=== PATIENT | female | born 1950 | race African-American/Black ===

== ENCOUNTER 2017-04-17 12:55 | Inpatient (IN) | payer MEDICARE, BC ==
[~2017-04-17] VITALS: Ht 170.2 cm; Wt 56.8 kg
[~2017-04-17 12:55] MED LIST: AMLO10TA2 PO; CINA30TA2 PO; HYDR453.3 TP; METO25TA4 PO; VIT1TABL57 PO
--- NOTE | 2017-04-17 13:13 | PHYS DOC ---
Past Medical History Past Medical History: Hypertension, Renal Disease, Other Additional Past Medical Histor: HEMODIALYSIS Past Surgical History: Other Additional Past Surgical Histo: HD CATHETER Alcohol Use: None Drug Use: None Adult General Chief Complaint Chief Complaint: fever HPI HPI Patient is a 67 year old female who presents with fever. He states that she hasn't felt good for the last 3 days his had some nausea and vomiting without any diarrhea. She went on about 2-3 times every day. She has a diarrhea because she hasn't been eating anything. She said to dialysis and she states she was afebrile at the beginning she ran 2 hours today and at the end of it they noticed a fever 102.1. Upon presentation the ER she is afebrile. She denies it they gave her Tylenol. She states her whole body aches from head to toe. She dialyzes Thursday. Her spool sander is Dr. Ramirez and Dr. Dominguez is her primary care physician. Review of Systems Review of Systems Constitutional: Denies fever or chills Eyes: Denies change in visual acuity, redness, or eye pain HENT: Denies nasal congestion or sore throat Respiratory: Denies cough or shortness of breath Cardiovascular: No additional information not addressed in HPI GI: Denies abdominal pain, bloody stools or diarrhea, positive for nausea, vomiting, : Denies dysuria or hematuria Musculoskeletal: Denies back pain or joint pain Integument: Denies rash or skin lesions Neurologic: Denies headache, focal weakness or sensory changes Endocrine: Denies polyuria or polydipsia Current Medications Current Medications Current Medications Medications (Trade) Dose Ordered Sig/Noris Start Time Stop Time Status Last Admin Dose Admin Fentanyl Citrate (Fentanyl 2ml Vial) 25 mcg PRN Q15MIN PRN 04/17/17 15:45 04/18/17 15:44 Vancomycin HCl (Vanco Per Pharmacy) 1 each PRN DAILY PRN 04/17/17 14:45 UNV Vancomycin HCl 1.5 gm/Sodium Chloride 500 ml @ 250 mls/hr 1X ONCE 04/17/17 15:00 04/17/17 16:59 04/17/17 15:18 250 MLS/HR Allergies Allergies Allergies Coded Allergies Type Severity Reaction Last Updated Verified diphenhydramine Adverse Reaction Mild Anxiety 01/17/16 Yes Physical Exam Physical Exam Constitutional: Well developed, well nourished, no acute distress, non-toxic appearance. [] HENT: Normocephalic, atraumatic, bilateral external ears normal, oropharynx moist, no oral exudates, nose normal. [] Eyes: PERRLA, EOMI, conjunctiva normal, no discharge. [] Neck: Normal range of motion, no tenderness, supple, no stridor. [] Cardiovascular:Heart rate regular rhythm, no murmur [] Lungs & Thorax: Bilateral breath sounds clear to auscultation [] Abdomen: Bowel sounds normal, soft, no tenderness, no masses, no pulsatile masses. [] Skin: Warm, dry, no erythema, no rash. [] Back: No tenderness, no CVA tenderness. [] Extremities: No tenderness, no cyanosis, no clubbing, ROM intact, no edema. [] Neurologic: Alert and oriented X 3, normal motor function, normal sensory function, no focal deficits noted. [] Psychologic: Affect normal, judgement normal, mood normal. [] Current Patient Data Vital Signs Vital Signs Date Time Temp Pulse Resp B/P (MAP) Pulse Ox O2 Delivery O2 Flow Rate FiO2 04/17/17 12:55 98.7 102 19 183/81 (115) 98 Room Air 98.7 Lab Values Laboratory Tests Test 04/17/17 13:44 White Blood Count 11.3 x10^3/uL (4.0-11.0) H Red Blood Count 4.13 x10^6/uL (3.50-5.40) Hemoglobin 12.2 g/dL (12.0-15.5) Hematocrit 37.4 % (36.0-47.0) Mean Corpuscular Volume 91 fL (79-100) Mean Corpuscular Hemoglobin 30 pg (25-35) Mean Corpuscular Hemoglobin Concent 33 g/dL (31-37) Red Cell Distribution Width 14.2 % (11.5-14.5) Platelet Count 147 x10^3/uL (140-400) Neutrophils (%) (Auto) 87 % (31-73) H Lymphocytes (%) (Auto) 5 % (24-48) L Monocytes (%) (Auto) 7 % (0-9) Eosinophils (%) (Auto) 0 % (0-3) Basophils (%) (Auto) 1 % (0-3) Neutrophils # (Auto) 9.9 x10^3uL (1.8-7.7) H Lymphocytes # (Auto) 0.5 x10^3/uL (1.0-4.8) L Monocytes # (Auto) 0.8 x10^3/uL (0.0-1.1) Eosinophils # (Auto) 0.0 x10^3/uL (0.0-0.7) Basophils # (Auto) 0.1 x10^3/uL (0.0-0.2) Platelet Estimate Pending Sodium Level 140 mmol/L (136-145) Potassium Level 3.9 mmol/L (3.5-5.1) Chloride Level 101 mmol/L (98-107) Carbon Dioxide Level 25 mmol/L (21-32) Anion Gap 14 (6-14) Blood Urea Nitrogen 24 mg/dL (7-20) H Creatinine 6.2 mg/dL (0.6-1.0) H Estimated GFR (Cockcroft-Gault) 8.1 BUN/Creatinine Ratio 4 (6-20) L Glucose Level 190 mg/dL (70-99) H Lactic Acid Level 1.8 mmol/L (0.4-2.0) Calcium Level 8.9 mg/dL (8.5-10.1) Total Bilirubin 0.7 mg/dL (0.2-1.0) Aspartate Amino Transferase (AST) 15 U/L (15-37) Alanine Aminotransferase (ALT) 12 U/L (14-59) L Alkaline Phosphatase 94 U/L (46-116) Total Protein 7.1 g/dL (6.4-8.2) Albumin 3.3 g/dL (3.4-5.0) L Albumin/Globulin Ratio 0.9 (1.0-1.7) L Laboratory Tests 04/17/17 13:44 Laboratory Tests 04/17/17 13:44 EKG EKG [] Radiology/Procedures Radiology/Procedures [facility] [address] [place], [place] [id number] IMAGING REPORT Signed PATIENT: JUD GARNER ACCOUNT: [id number] : 1950 LOCATION: ER AGE: 67 SEX: F EXAM STATUS: PRE ER ORD. PHYSICIAN: HAILEE SAUCEDO MD REASON: fever PROCEDURE: PORTABLE CHEST 1V EXAM: Chest one view. HISTORY: Fever, nausea. COMPARISON: 07/25/2007. FINDINGS: A frontal view of the chest is obtained. A density in the right para mediastinal territory likely overlies the patient. There are interstitial opacities in both bases. There is no pneumothorax or pleural effusion. The heart is mildly enlarged. There are atherosclerotic calcifications of the aorta. Surgical clips are seen at the base of the neck. IMPRESSION: 1. Mild interstitial opacities in the bases. Correlate for mild pulmonary edema. 2. Mild cardiomegaly. DICTATED and SIGNED BY: BELTRAN TALAVERA MD DATE: 04/17/17 1351 CC: JUDITH DOMINGUEZ; HAILEE SAUCEDO MD ~ Impressions: Fever End-stage renal disease Course & Med Decision Making Course & Med Decision Making Pertinent Labs and Imaging studies reviewed. (See chart for details) Her lactic acid is normal and she doesn't have fever here. She started on vancomycin. Influenza is still pending at this time. Spoke with during the plan who is agreeable and will admit the patient. She is requiring fentanyl for generalized bodyaches. Dragon Disclaimer Dragon Disclaimer This electronic medical record was generated, in whole or in part, using a voice recognition dictation system. Departure Departure Impression: Primary Impression: Fever Disposition: ADMITTED INPATIENT Admitting Physician: Lencho Block Condition: STABLE Referrals: JUDITH DOMINGUEZ (PCP) Problem Qualifiers Primary Impression: Fever Fever type: unspecified Qualified Codes: R50.9 - Fever, unspecified HAILEE SAUCEDO MD Apr 17, 2017 13:13
--- NOTE | 2017-04-17 13:57 | RAD ---
EXAM: Chest one view. HISTORY: Fever, nausea. COMPARISON: 07/25/2007. FINDINGS: A frontal view of the chest is obtained. A density in the right para mediastinal territory likely overlies the patient. There are interstitial opacities in both bases. There is no pneumothorax or pleural effusion. The heart is mildly enlarged. There are atherosclerotic calcifications of the aorta. Surgical clips are seen at the base of the neck. IMPRESSION: 1. Mild interstitial opacities in the bases. Correlate for mild pulmonary edema. 2. Mild cardiomegaly.
[2017-04-17 13:58] LABS: BASO # 0.1 x10^3/uL (0.0-0.2); BASO % 1 % (0-3); EOS % 0 % (0-3); HEMATOCRIT 37.4 % (36.0-47.0); HEMOGLOBIN 12.2 g/dL (12.0-15.5); LYMPH # 0.5 x10^3/uL (1.0-4.8); LYMPH % 5 % (24-48); MEAN CORPUSCULAR HEMOGLOBIN 30 pg (25-35); MEAN CORPUSCULAR HGB CONC 33 g/dL (31-37); MEAN CORPUSCULAR VOLUME 91 fL (79-100); MONO % 7 % (0-9); NEUT % 87 % (31-73); PLATELET COUNT 147 x10^3/uL (140-400); RED BLOOD COUNT 4.13 x10^6/uL (3.50-5.40); RED CELL DISTRIBUTION WIDTH 14.2 % (11.5-14.5); WHITE BLOOD COUNT 11.3 x10^3/uL (4.0-11.0)
[2017-04-17 14:14] LABS: CALCIUM 8.9 mg/dL (8.5-10.1); CREATININE 6.2 mg/dL (0.6-1.0); GFR 8.1; POTASSIUM 3.9 mmol/L (3.5-5.1)
--- NOTE | 2017-04-17 14:19 | EKG ---
[facility] [address] [place] [address] Test Date: 2017-04-17 Test Time: 13:25:35 Pat Name: JUD GARNER Department: Room: Gender: F Gardener Florist: : 1950 Requested By: HAILEE SAUCEDO Order Number: [id number] Reading MD: Measurements Intervals [place] Rate: 103 P: 56 [place]: 144 QRS: -47 QRSD: 90 T: 104 QT: 334 QTc: 439 Interpretive Statements SINUS TACHYCARDIA LEFT ATRIAL ABNORMALITY ABNORMAL LEFT AXIS DEVIATION LEFT ANTERIOR FASCICULAR BLOCK CONSIDER LEFT VENTRICULAR HYPERTROPHY T ABNORMALITY IN HIGH LATERAL LEADS RI6.01 Unconfirmed report No previous ECG available for comparison
[2017-04-17 14:21] LABS: ALBUMIN 3.3 g/dL (3.4-5.0); ALBUMIN/GLOBULIN RATIO 0.9 (1.0-1.7); TOTAL BILIRUBIN 0.7 mg/dL (0.2-1.0); TOTAL PROTEIN 7.1 g/dL (6.4-8.2)
[2017-04-17] MEDS ORDERED: VANCOMYCIN 1.5 GM in IV NORMAL SALINE 500ML BAG 500 ML IV ONE (15:00)
[2017-04-17] MEDS ORDERED: fentaNYL PF VIAL 100 MCG/2 ML VIAL IV PRN ×2 (15:45→16:30)
[2017-04-17] MEDS ORDERED: ONDANSETRON PF 4 MG/2 ML VIAL. IV PRN (16:30)
[2017-04-17 16:42] LABS: OBC FLU VALID
[2017-04-17] MEDS: VANCOMYCIN PER PHARMACY MC PRN (16:58)
[2017-04-17 17:13] LABS: PLT ESTIMATE ADEQUATE (ADEQUATE)
[2017-04-17 17:15] LABS: % BASOS 1 % (0-3)
[2017-04-17 17:16] LABS: OVALOCYTES OCC; SCHISTOCYTES OCC
[2017-04-17 17:17] LABS: TOXIC GRANULATION MOD
[2017-04-17] MEDS ORDERED: CALC667T PO (18:10)
[2017-04-17] MEDS: ACETAMINOPHEN 325 MG TABLET. PO PRN (18:28)
[2017-04-17] MEDS ORDERED: VANCOMYCIN PER PHARMACY MC PRN (18:30)
[2017-04-17 18:35] VITALS: BP 156/68
[2017-04-17] MEDS: GENTAMICIN PER PHARMACY. MC PRN (18:35)
[2017-04-17 19:00] VITALS: BP 116/60
[2017-04-17] MEDS ORDERED: NORMAL SALINE IV ONE (19:30)
[2017-04-17] MEDS ORDERED: GENTAMICIN SULFATE IV ONE (19:30)
[2017-04-17] MEDS: METOPROLOL TART IMMED RELEASE 25 MG TABLET. PO SCH (20:24)
[2017-04-17 23:00] VITALS: BP 143/66
[2017-04-18 03:00] VITALS: BP 150/66
[2017-04-18 05:00] LABS: BASO # 0.1 x10^3/uL (0.0-0.2); BASO % 1 % (0-3); EOS % 0 % (0-3); HEMATOCRIT 33.9 % (36.0-47.0); HEMOGLOBIN 11.2 g/dL (12.0-15.5); LYMPH # 0.7 x10^3/uL (1.0-4.8); LYMPH % 7 % (24-48); MEAN CORPUSCULAR HEMOGLOBIN 30 pg (25-35); MEAN CORPUSCULAR HGB CONC 33 g/dL (31-37); MEAN CORPUSCULAR VOLUME 91 fL (79-100); MONO % 15 % (0-9); NEUT % 77 % (31-73); PLATELET COUNT 121 x10^3/uL (140-400); RED BLOOD COUNT 3.75 x10^6/uL (3.50-5.40); RED CELL DISTRIBUTION WIDTH 14.4 % (11.5-14.5); WHITE BLOOD COUNT 9.4 x10^3/uL (4.0-11.0)
[2017-04-18 05:27] LABS: CALCIUM 8.6 mg/dL (8.5-10.1); CREATININE 7.4 mg/dL (0.6-1.0); GFR 6.6; POTASSIUM 4.1 mmol/L (3.5-5.1)
[2017-04-18] MEDS: HYDROcodone/APAP 5/325MG 1 TAB TABLET PO PRN ×3 (06:48→22:22)
[2017-04-18] MEDS: ACETAMINOPHEN 325 MG TABLET. PO PRN ×2 (06:48→16:08)
[2017-04-18 06:50] VITALS: BP 151/59
--- NOTE | 2017-04-18 07:40 | PDOC ---
Infectious Disease Note ROS ROS Vital Sign Vital Signs Vital Signs Date Time Temp Pulse Resp B/P (MAP) Pulse Ox O2 Delivery O2 Flow Rate FiO2 04/18/17 06:50 96 20 151/59 (89) 96 Room Air 04/18/17 06:35 99.5 99.5 Labs Lab Laboratory Tests Test 04/17/17 13:44 04/17/17 15:20 04/18/17 03:35 04/18/17 03:53 White Blood Count 11.3 x10^3/uL (4.0-11.0) 9.4 x10^3/uL (4.0-11.0) Red Blood Count 4.13 x10^6/uL (3.50-5.40) 3.75 x10^6/uL (3.50-5.40) Hemoglobin 12.2 g/dL (12.0-15.5) 11.2 g/dL (12.0-15.5) Hematocrit 37.4 % (36.0-47.0) 33.9 % (36.0-47.0) Mean Corpuscular Volume 91 fL (79-100) 91 fL (79-100) Mean Corpuscular Hemoglobin 30 pg (25-35) 30 pg (25-35) Mean Corpuscular Hemoglobin Concent 33 g/dL (31-37) 33 g/dL (31-37) Red Cell Distribution Width 14.2 % (11.5-14.5) 14.4 % (11.5-14.5) Platelet Count 147 x10^3/uL (140-400) 121 x10^3/uL (140-400) Neutrophils (%) (Auto) 87 % (31-73) 77 % (31-73) Lymphocytes (%) (Auto) 5 % (24-48) 7 % (24-48) Monocytes (%) (Auto) 7 % (0-9) 15 % (0-9) Eosinophils (%) (Auto) 0 % (0-3) 0 % (0-3) Basophils (%) (Auto) 1 % (0-3) 1 % (0-3) Neutrophils # (Auto) 9.9 x10^3uL (1.8-7.7) 7.2 x10^3uL (1.8-7.7) Lymphocytes # (Auto) 0.5 x10^3/uL (1.0-4.8) 0.7 x10^3/uL (1.0-4.8) Monocytes # (Auto) 0.8 x10^3/uL (0.0-1.1) 1.4 x10^3/uL (0.0-1.1) Eosinophils # (Auto) 0.0 x10^3/uL (0.0-0.7) 0.0 x10^3/uL (0.0-0.7) Basophils # (Auto) 0.1 x10^3/uL (0.0-0.2) 0.1 x10^3/uL (0.0-0.2) Segmented Neutrophils % 86 % (35-66) Band Neutrophils % % (0-9) Lymphocytes % 6 % (24-48) Monocytes % 7 % (0-10) Basophils % 1 % (0-3) Toxic Granulation Mod Platelet Estimate Adequate (ADEQUATE) Platelet Clumps, EDTA Present Ovalocytes Occ Schistocytes Occ Sodium Level 140 mmol/L (136-145) 138 mmol/L (136-145) Potassium Level 3.9 mmol/L (3.5-5.1) 4.1 mmol/L (3.5-5.1) Chloride Level 101 mmol/L (98-107) 102 mmol/L (98-107) Carbon Dioxide Level 25 mmol/L (21-32) 24 mmol/L (21-32) Anion Gap 14 (6-14) 12 (6-14) Blood Urea Nitrogen 24 mg/dL (7-20) 31 mg/dL (7-20) Creatinine 6.2 mg/dL (0.6-1.0) 7.4 mg/dL (0.6-1.0) Estimated GFR (Cockcroft-Gault) 8.1 6.6 BUN/Creatinine Ratio 4 (6-20) Glucose Level 190 mg/dL (70-99) 250 mg/dL (70-99) Lactic Acid Level 1.8 mmol/L (0.4-2.0) Calcium Level 8.9 mg/dL (8.5-10.1) 8.6 mg/dL (8.5-10.1) Total Bilirubin 0.7 mg/dL (0.2-1.0) Aspartate Amino Transf (AST/SGOT) 15 U/L (15-37) Alanine Aminotransferase (ALT/SGPT) 12 U/L (14-59) Alkaline Phosphatase 94 U/L (46-116) Total Protein 7.1 g/dL (6.4-8.2) Albumin 3.3 g/dL (3.4-5.0) Albumin/Globulin Ratio 0.9 (1.0-1.7) Influenza Type A Antigen Negative (NEGATIVE) Influenza Type B Antigen Negative (NEGATIVE) Objective Assessment Fever Leukocytosis CKD on HD mild CHF Plan Plan of Care Agree with Vanc/Gent Dose cefepime F/u labs and cults Thank you # [id number] RANDY BYRD MD Apr 18, 2017 07:40
[2017-04-18] MEDS: CINACALCET HCL 30 MG TABLET PO SCH (08:05)
[2017-04-18] MEDS: FOLIC/VIT B COMP W-C (RENAL) TABLET. PO SCH (08:05)
[2017-04-18] MEDS: CALCIUM ACETATE 667 MG CAPSULE PO SCH ×3 (08:05→16:43)
[2017-04-18] MEDS: VANCOMYCIN PER PHARMACY MC PRN (09:04)
[2017-04-18] MEDS: GENTAMICIN PER PHARMACY. MC PRN (09:06)
[2017-04-18 11:00] VITALS: BP 120/44
[2017-04-18] MEDS: METOPROLOL TART IMMED RELEASE 25 MG TABLET. PO SCH ×2 (11:15→21:14)
[2017-04-18] MEDS: amLODIPine BESYLATE 10 MG TABLET PO SCH (11:15)
--- NOTE | 2017-04-18 11:19 | PDOC ---
Provider Note Provider Note Pt seen.H&P dictated. #[id number] MARIA TERESA HUIZRA MD Apr 18, 2017 11:19
[2017-04-18] MEDS: CEFEPIME HCL 1 GM in IV NORMAL SALINE 50ML 50 ML IV SCH (11:22)
[2017-04-18] MEDS ORDERED: ENOXAPARIN 40 MG/0.4 ML SYRINGE. SQ SCH (11:45)
--- NOTE | 2017-04-18 11:48 | PDOC2 ---
CONSULT Date of Consult Date of Consult DATE: 04/18/17 TIME: 11:45 Reason for Consult Reason for Consult: ESRD Referring Physician Referring Physician: GAYE Identification/Chief Complaint Chief Complaint FEVERS AND CHILLS Problems: Source Source: Chart review, Patient History of Present Illness Reason for Visit: THIS IS A 67 YR OLD ADMITTED WITH FEVERS AND CHILLS. ALSO HAS HAD N/V/D FOR SEVERAL DAYS. ON ADMIT MILD LEUCOCYTOSIS IS NOTED AND SINCE THEN BCX ARE POSITIVE. SHE HAS ESRD AND IS ON HD ON MWF. LAST TX WAS YESTERDAY WHICH SHE COMPLETED. LABS ARE C/W HER ESRD STATUS Past Medical History Cardiovascular: CAD, HTN, Hyperlipidemia GI: Constipation Heme/Onc: Anemia NOS Psych: Anxiety Musculoskeletal: Osteoarthritis, Muscle atrophy, Weakness Renal/: Chronic renal failure Endocrine: Hyperparathyroidism Family History Family History: No Significant Social History ALCOHOL: none Lives: with Family Current Problem List Problem List Problems Medical Problems: (1) Fever Status: Acute Current Medications Current Medications Current Medications Vancomycin HCl (Vanco Per Pharmacy) 1 each PRN DAILY PRN MC SEE COMMENTS Last administered on 04/18/17 09:04; Start 04/17/17 at 14:45 Vancomycin HCl 1.5 gm/Sodium Chloride 500 ml @ 250 mls/hr 1X ONCE IV Last administered on 04/17/17 15:18; Start 04/17/17 at 15:00; Stop 04/17/17 at 16:59 ; Status DC Fentanyl Citrate (Fentanyl 2ml Vial) 25 mcg PRN Q15MIN PRN IV PAIN GREATER THAN 3/10 Last administered on 04/17/17 16:35; Start 04/17/17 at 15:45; Stop at 15:44 Ondansetron HCl (Zofran) 4 mg PRN Q8HRS PRN IV NAUSEA/VOMITING; Start 04/17/17 at 16:30; Stop 04/18/17 at 16:29 Fentanyl Citrate (Fentanyl 2ml Vial) 25 mcg PRN Q2HR PRN IV PAIN; Start at 16:30; Stop 04/18/17 at 16:29 Vancomycin HCl 1 each 1X ONCE MC ; Start 04/19/17 at 06:00; Stop 04/19/17 at 06 :01 Amlodipine Besylate (Norvasc) 10 mg DAILY PO Last administered on 04/18/17 11: 15; Start 04/18/17 at 09:00 Cinacalcet (Sensipar) 30 mg DAILY PO Last administered on 04/18/17 08:05; Start 04/18/17 at 09:00 Metoprolol Tartrate (Lopressor) 25 mg BID PO Last administered on 04/18/17 11: 15; Start 04/17/17 at 21:00 Calcium Acetate (Phoslo) 1,334 mg TIDWMEALS PO Last administered on 04/18/17 11:22; Start 04/18/17 at 08:00 Vitamin B Complex/ Vitamin C (Mady-Albino) 1 tab DAILY PO Last administered on 08:05; Start 04/18/17 at 09:00 Vancomycin HCl (Vanco Per Pharmacy) 1 each PRN DAILY PRN MC SEE COMMENTS; Start 04/17/17 at 18:30; Status UNV Gentamicin Sulfate 1 each PRN DAILY PRN MC SEE COMMENTS Last administered on 09:06; Start 04/17/17 at 18:30 Acetaminophen/ Hydrocodone Bitart (Lortab 5/325) 1 tab PRN Q6HRS PRN PO PAIN Last administered on 04/18/17 06:48; Start 04/17/17 at 18:30 Acetaminophen (Tylenol) 650 mg PRN Q8HRS PRN PO temp Last administered on 06:48; Start 04/17/17 at 18:30 Gentamicin Sulfate 150 mg/ Sodium Chloride 103.75 ml @ 207.5 mls/hr 1X ONCE IV Last administered on 04/17/17 20:23; Start 04/17/17 at 19:30; Stop at 19:59; Status DC Gentamicin Sulfate 1 each 1X ONCE MC ; Start 04/20/17 at 06:00; Stop 04/20/17 at 06:01 Cefepime HCl 1 gm/ Sodium Chloride 50 ml @ 100 mls/hr DAILY IV Last administered on 04/18/17 11:22; Start 04/18/17 at 08:30 Enoxaparin Sodium (Lovenox 40mg Syringe) 30 mg Q24H SQ ; Start 04/18/17 at 11:45 ; Status UNV Active Scripts Active Reported Calcium Acetate 667 Mg Tablet 1,334 Mg PO TIDWMEALS Metoprolol Tartrate 25 Mg Tablet 25 Mg PO BID Sensipar (Cinacalcet Hcl) 30 Mg Tablet 30 Mg PO Amlodipine Besylate 10 Mg Tablet 10 Mg PO DAILY Nephro-Albino Rx Tablet (Vit B Cmplx 3/Fa/Vit C/Biotin) 1 Each Tablet 1 Each PO DAILY Allergies Allergies: Coded Allergies: diphenhydramine (Verified Adverse Reaction, Mild, Anxiety, 01/17/16) ROS General: YES: Malaise, Appetite PSYCHOLOGICAL ROS: YES: Anxiety Eyes: Yes Decreased vision HEENT: YES: Heacaches Respiratory: YES: Cough Gastrointestinal: Yes Nausea, Yes Vomiting, Yes Diarrhea Genitourinary: YES Other (ANURIA) Musculoskeletal: Yes Muscular Weakness Neurological: Yes Weakness Skin: Yes Dry Skin Physical Exam General: Alert, Oriented X3, Cooperative, No acute distress HEENT: Atraumatic, PERRLA Lungs: Clear to auscultation Heart: Regular rate Abdomen: Normal bowel sounds, Soft, No tenderness Extremities: No clubbing Neuro: Normal speech, Cranial nerves 3-12 NL Psych/Mental Status: Mood NL MUSCULOSKELETAL: No deformity, No swelling Vitals VITALS Vital Signs Date Time Temp Pulse Resp B/P (MAP) Pulse Ox O2 Delivery O2 Flow Rate FiO2 04/18/17 11:15 106 120/44 04/18/17 11:00 98.1 20 97 Room Air 98.1 Labs Labs Laboratory Tests Test 04/17/17 13:44 04/17/17 15:20 04/18/17 03:35 04/18/17 03:53 White Blood Count 11.3 x10^3/uL (4.0-11.0) 9.4 x10^3/uL (4.0-11.0) Red Blood Count 4.13 x10^6/uL (3.50-5.40) 3.75 x10^6/uL (3.50-5.40) Hemoglobin 12.2 g/dL (12.0-15.5) 11.2 g/dL (12.0-15.5) Hematocrit 37.4 % (36.0-47.0) 33.9 % (36.0-47.0) Mean Corpuscular Volume 91 fL (79-100) 91 fL (79-100) Mean Corpuscular Hemoglobin 30 pg (25-35) 30 pg (25-35) Mean Corpuscular Hemoglobin Concent 33 g/dL (31-37) 33 g/dL (31-37) Red Cell Distribution Width 14.2 % (11.5-14.5) 14.4 % (11.5-14.5) Platelet Count 147 x10^3/uL (140-400) 121 x10^3/uL (140-400) Neutrophils (%) (Auto) 87 % (31-73) 77 % (31-73) Lymphocytes (%) (Auto) 5 % (24-48) 7 % (24-48) Monocytes (%) (Auto) 7 % (0-9) 15 % (0-9) Eosinophils (%) (Auto) 0 % (0-3) 0 % (0-3) Basophils (%) (Auto) 1 % (0-3) 1 % (0-3) Neutrophils # (Auto) 9.9 x10^3uL (1.8-7.7) 7.2 x10^3uL (1.8-7.7) Lymphocytes # (Auto) 0.5 x10^3/uL (1.0-4.8) 0.7 x10^3/uL (1.0-4.8) Monocytes # (Auto) 0.8 x10^3/uL (0.0-1.1) 1.4 x10^3/uL (0.0-1.1) Eosinophils # (Auto) 0.0 x10^3/uL (0.0-0.7) 0.0 x10^3/uL (0.0-0.7) Basophils # (Auto) 0.1 x10^3/uL (0.0-0.2) 0.1 x10^3/uL (0.0-0.2) Segmented Neutrophils % 86 % (35-66) Band Neutrophils % % (0-9) Lymphocytes % 6 % (24-48) Monocytes % 7 % (0-10) Basophils % 1 % (0-3) Toxic Granulation Mod Platelet Estimate Adequate (ADEQUATE) Platelet Clumps, EDTA Present Ovalocytes Occ Schistocytes Occ Sodium Level 140 mmol/L (136-145) 138 mmol/L (136-145) Potassium Level 3.9 mmol/L (3.5-5.1) 4.1 mmol/L (3.5-5.1) Chloride Level 101 mmol/L (98-107) 102 mmol/L (98-107) Carbon Dioxide Level 25 mmol/L (21-32) 24 mmol/L (21-32) Anion Gap 14 (6-14) 12 (6-14) Blood Urea Nitrogen 24 mg/dL (7-20) 31 mg/dL (7-20) Creatinine 6.2 mg/dL (0.6-1.0) 7.4 mg/dL (0.6-1.0) Estimated GFR (Cockcroft-Gault) 8.1 6.6 BUN/Creatinine Ratio 4 (6-20) Glucose Level 190 mg/dL (70-99) 250 mg/dL (70-99) Lactic Acid Level 1.8 mmol/L (0.4-2.0) Calcium Level 8.9 mg/dL (8.5-10.1) 8.6 mg/dL (8.5-10.1) Total Bilirubin 0.7 mg/dL (0.2-1.0) Aspartate Amino Transf (AST/SGOT) 15 U/L (15-37) Alanine Aminotransferase (ALT/SGPT) 12 U/L (14-59) Alkaline Phosphatase 94 U/L (46-116) Total Protein 7.1 g/dL (6.4-8.2) Albumin 3.3 g/dL (3.4-5.0) Albumin/Globulin Ratio 0.9 (1.0-1.7) Influenza Type A Antigen Negative (NEGATIVE) Influenza Type B Antigen Negative (NEGATIVE) Laboratory Tests Test 04/17/17 13:44 04/17/17 15:20 04/18/17 03:35 04/18/17 03:53 White Blood Count 11.3 x10^3/uL (4.0-11.0) 9.4 x10^3/uL (4.0-11.0) Red Blood Count 4.13 x10^6/uL (3.50-5.40) 3.75 x10^6/uL (3.50-5.40) Hemoglobin 12.2 g/dL (12.0-15.5) 11.2 g/dL (12.0-15.5) Hematocrit 37.4 % (36.0-47.0) 33.9 % (36.0-47.0) Mean Corpuscular Volume 91 fL (79-100) 91 fL (79-100) Mean Corpuscular Hemoglobin 30 pg (25-35) 30 pg (25-35) Mean Corpuscular Hemoglobin Concent 33 g/dL (31-37) 33 g/dL (31-37) Red Cell Distribution Width 14.2 % (11.5-14.5) 14.4 % (11.5-14.5) Platelet Count 147 x10^3/uL (140-400) 121 x10^3/uL (140-400) Neutrophils (%) (Auto) 87 % (31-73) 77 % (31-73) Lymphocytes (%) (Auto) 5 % (24-48) 7 % (24-48) Monocytes (%) (Auto) 7 % (0-9) 15 % (0-9) Eosinophils (%) (Auto) 0 % (0-3) 0 % (0-3) Basophils (%) (Auto) 1 % (0-3) 1 % (0-3) Neutrophils # (Auto) 9.9 x10^3uL (1.8-7.7) 7.2 x10^3uL (1.8-7.7) Lymphocytes # (Auto) 0.5 x10^3/uL (1.0-4.8) 0.7 x10^3/uL (1.0-4.8) Monocytes # (Auto) 0.8 x10^3/uL (0.0-1.1) 1.4 x10^3/uL (0.0-1.1) Eosinophils # (Auto) 0.0 x10^3/uL (0.0-0.7) 0.0 x10^3/uL (0.0-0.7) Basophils # (Auto) 0.1 x10^3/uL (0.0-0.2) 0.1 x10^3/uL (0.0-0.2) Segmented Neutrophils % 86 % (35-66) Band Neutrophils % % (0-9) Lymphocytes % 6 % (24-48) Monocytes % 7 % (0-10) Basophils % 1 % (0-3) Toxic Granulation Mod Platelet Estimate Adequate (ADEQUATE) Platelet Clumps, EDTA Present Ovalocytes Occ Schistocytes Occ Sodium Level 140 mmol/L (136-145) 138 mmol/L (136-145) Potassium Level 3.9 mmol/L (3.5-5.1) 4.1 mmol/L (3.5-5.1) Chloride Level 101 mmol/L (98-107) 102 mmol/L (98-107) Carbon Dioxide Level 25 mmol/L (21-32) 24 mmol/L (21-32) Anion Gap 14 (6-14) 12 (6-14) Blood Urea Nitrogen 24 mg/dL (7-20) 31 mg/dL (7-20) Creatinine 6.2 mg/dL (0.6-1.0) 7.4 mg/dL (0.6-1.0) Estimated GFR (Cockcroft-Gault) 8.1 6.6 BUN/Creatinine Ratio 4 (6-20) Glucose Level 190 mg/dL (70-99) 250 mg/dL (70-99) Lactic Acid Level 1.8 mmol/L (0.4-2.0) Calcium Level 8.9 mg/dL (8.5-10.1) 8.6 mg/dL (8.5-10.1) Total Bilirubin 0.7 mg/dL (0.2-1.0) Aspartate Amino Transf (AST/SGOT) 15 U/L (15-37) Alanine Aminotransferase (ALT/SGPT) 12 U/L (14-59) Alkaline Phosphatase 94 U/L (46-116) Total Protein 7.1 g/dL (6.4-8.2) Albumin 3.3 g/dL (3.4-5.0) Albumin/Globulin Ratio 0.9 (1.0-1.7) Influenza Type A Antigen Negative (NEGATIVE) Influenza Type B Antigen Negative (NEGATIVE) Assessment/Plan Assessment/Plan IMP ESRD HTN DM II ANEMIA N/V/D FEVERS PROB SEPSIS PLAN ANTIBIOTICS HD MWF UMAIR BARTH MD Apr 18, 2017 11:48
--- NOTE | 2017-04-18 12:05 | HP ---
ADMIT DATE: 04/17/2017 PATIENT LOCATION: [facility]. ATTENDING PHYSICIAN: Dr. Huizar. PRIMARY CARE PHYSICIAN: Dr. Bedoya. REASON FOR ADMISSION TO THE HOSPITAL: Fever, not feeling well, nausea, vomiting. HISTORY OF PRESENT ILLNESS: The patient is a 67-year-old female patient, has end-stage renal disease, on dialysis for at least 20 years. She has been not feeling well for the last 2-3 days, getting progressively worse and nauseated, vomiting, came to the Emergency Room. She had a dialysis yesterday and very weak. She lives at home by herself and she had a fever of 102, was brought to the hospital. A culture was done, started on broad spectrum antibiotic, vanco and gent. Seen by Infectious Disease as well as Renal. PAST MEDICAL HISTORY: Has a history of hypertension and kidney failure, on hemodialysis for 20 years. PAST SURGICAL HISTORY: The patient had multiple dialysis accesses in the chest, which were removed. She had one in the left arm, not working. Now, she has one in the right groin. She has been getting dialysis through the catheter in the right groin area. ALLERGIES: BENADRYL. PERSONAL HISTORY: Denies smoking, alcohol or drug abuse. MEDICATIONS AT HOME: Amlodipine 10 mg daily, calcium 667 mg 3 times daily with food, Sensipar 30 mg daily, metoprolol tartrate 25 mg twice a day, Nephro-Albino 1 daily. FAMILY HISTORY: Positive for hypertension and kidney problems. REVIEW OF SYMPTOMS: CARDIAC: No chest pain. GASTROINTESTINAL: Nausea and vomiting. NEUROLOGICAL: No weakness, has a fever. Rest of the 14-system was reviewed and negative. PHYSICAL EXAMINATION: VITAL SIGNS: The patient had a temperature of 101, pulse 102, respirations 20, blood pressure 130/59, ____ on room air. HEENT: Head is atraumatic. Pupils are equal. Oral cavity: No congestion. NECK: Supple. Thyroid not enlarged. JVD not elevated. CHEST: Symmetrical. Scars on the right side of the chest from previous dialysis catheter accesses, no catheter now. CARDIOVASCULAR: S1, S2. No murmurs. LUNGS: Clear to auscultation. ABDOMEN: Soft. No mass palpable. EXTERNAL GENITALIA: No [place]. EXTREMITIES: The patient has an AV shunt in the left upper arm as well as AV shunt in the right groin. Good thrill present. No discharge, no drainage. No calf tenderness, no edema. NEUROLOGIC: Cranial nerves intact. Power normal extremities. LABORATORY DATA: Shows a white count of 11,000, hemoglobin 12, platelets of 147. Electrolytes show sodium 140, potassium 3.9, chloride 101, bicarbonate 25, BUN 24, creatinine 6.2, glucose 190, lactic acid 1.8. LFTs normal. Influenza A and B was negative. Chest x-ray: Mild interstitial opacities, cardiomegaly. Blood cultures were positive for gram-negative rods. FINAL IMPRESSION: 1. Bacteremia secondary to gram-negative. 2. Febrile illness secondary to bacteremia. 3. End-stage renal disease, on hemodialysis Thursday, Thursday and Thursday. 4. Hypertension. PLAN: To admit the patient. Start on broad-spectrum antibiotic, vanc and gent. Pharmacy is managing the doses. ID is consulted. Blood cultures were done and also added cefepime. Also, Renal was consulted for dialysis Thursday, Thursday, Thursday. Discussed with Renal. MARIA TERESA HUIZAR MD DR: LUCRECIA/elijah JOB#: [id number] / [id number] Dr. BEN Dotson
[2017-04-18 15:00] VITALS: BP 159/74
[2017-04-18] MEDS: HEPARIN PF for SUB-Q USE 5,000 UNIT/0.5 ML VIAL. SQ SCH ×2 (16:18→21:22)
[2017-04-18 19:00] VITALS: BP 116/59
--- NOTE | 2017-04-18 21:14 | CONS ---
DATE OF CONSULTATION: 04/18/2017 PATIENT LOCATION: [facility]. REQUESTING PHYSICIAN: Dr. Block. REASON FOR CONSULTATION: Fever after dialysis. HISTORY OF PRESENT ILLNESS: The patient is a pleasant 67-year-old female; however, she is somewhat of a poor historian. She does have chronic kidney disease, has been on hemodialysis, she states, for 21 years. She states on Thursday she was feeling a little tired, but then comes Thursday at dialysis, she was having chills, felt ill and had some vomiting, but did not tell anybody. Yesterday, at dialysis apparently she developed a fever and was transferred to [facility] for admission. She had a temperature of 99.5 axillary. White blood cell count was elevated at 11.3 and she was placed on vancomycin and gentamicin. Per report, in the ER her temperature was as high as 102.1. Currently, she is sitting in a chair. She states that she has had some generalized body aches that has been going on for several weeks. She has a mild headache. No sinus issues. No gross shortness of air. Again, she has been vomiting at times, but no blood and has had some issues with some loose stools at times. She makes no urine. Denies any falls, traumas or rashes. Influenza screen was negative. Currently, she is sitting in a chair and she still has some mild aches. PAST MEDICAL HISTORY: Positive for chronic kidney disease as mentioned above for which she has been on dialysis, coronary artery disease, hypertension, hyperlipidemia, constipation, anemia, anxiety, osteoarthritis, muscle atrophy, hyperparathyroidism. PAST SURGICAL HISTORY: Positive for failed AV accesses, she has got a right thigh AV graft with previous revision as well as a left upper extremity old AV graft. REVIEW OF SYSTEMS: Otherwise negative except as mentioned above. ALLERGIES: DIPHENHYDRAMINE. SOCIAL HISTORY: No tobacco or alcohol. FAMILY HISTORY: Positive for kidney failure. CURRENT MEDICATIONS: Include gentamicin, vancomycin, Norvasc, Sensipar, metoprolol. Other meds are available and reviewed in the chart. PHYSICAL EXAMINATION: VITAL SIGNS: T-max and current 99.5, pulse 96, respirations 20, blood pressure 151/59, satting 96% on room air. CONSTITUTIONAL: She is sitting in a chair. She is cooperative. She is in no acute distress. HEENT: She appears to have some cataracts in her pupils, normal conjunctivae. Oral cavity, pharynx is clear. NECK: Supple, no JVD. LUNGS: Clear to auscultation bilaterally. HEART: S1, S2 with a soft murmur. ABDOMEN: Soft, nontender, nondistended, with positive bowel sounds. EXTREMITIES: No clubbing, cyanosis. Trace edema. Her right thigh has an AV graft in it with good thrill. Her left upper extremity has an AV graft also. Both sites are clean. SKIN: Warm to touch without signs of rash. NEUROLOGIC: She is nonfocal, moves all extremities. PSYCHIATRIC: Affect is pleasant. LABORATORY DATA: Her influenza was negative. White count was 11.3 on arrival, currently 9.4, hemoglobin 11.2, platelets 121, neutrophils 77, lymphs were 7. Glucose 250 this morning. She had normal liver function study tests essentially on arrival. Chest x-ray has some fluid with questionable congestive heart failure. IMPRESSION: 1. Fever. 2. Leukocytosis. 3. Chronic kidney disease, on hemodialysis. 4. Mild congestive heart failure. RECOMMENDATIONS: I agree with the vancomycin and gentamicin, will dose cefepime as well given her fever. Follow up on labs and cultures. Thanks for allowing me to participate in the patient's care. If you have any questions, please do not hesitate to contact me. RANDY BYRD MD DR: CITLALY/elijah JOB#: [id number] / [id number]
[2017-04-18] MEDS: DARBEPOETIN ALFA 60 MCG/0.3 ML DISP.SYRIN. SQ SCH (21:17)
[2017-04-18 22:47] VITALS: BP 136/61
[2017-04-19] VITALS (7 sets, daily range): BP systolic 114–146; BP diastolic 32–56
[2017-04-19] MEDS ORDERED: VANCOMYCIN RANDOM LEVEL. MC ONE (06:00)
[2017-04-19 06:29] LABS: BASO % 0 % (0-3); EOS % 1 % (0-3); HEMATOCRIT 33.8 % (36.0-47.0); HEMOGLOBIN 11.4 g/dL (12.0-15.5); LYMPH # 0.6 x10^3/uL (1.0-4.8); LYMPH % 8 % (24-48); MEAN CORPUSCULAR HEMOGLOBIN 30 pg (25-35); MEAN CORPUSCULAR HGB CONC 34 g/dL (31-37); MEAN CORPUSCULAR VOLUME 90 fL (79-100); MONO % 12 % (0-9); NEUT % 79 % (31-73); PLATELET COUNT 129 x10^3/uL (140-400); RED BLOOD COUNT 3.78 x10^6/uL (3.50-5.40); RED CELL DISTRIBUTION WIDTH 14.2 % (11.5-14.5); WHITE BLOOD COUNT 7.3 x10^3/uL (4.0-11.0)
[2017-04-19] MEDS: HEPARIN PF for SUB-Q USE 5,000 UNIT/0.5 ML VIAL. SQ SCH ×3 (06:40→21:13)
[2017-04-19] MEDS: VANCOMYCIN PER PHARMACY MC PRN (07:47)
[2017-04-19] MEDS: GENTAMICIN PER PHARMACY. MC PRN (07:51)
[2017-04-19] MEDS: FOLIC/VIT B COMP W-C (RENAL) TABLET. PO SCH (08:26)
[2017-04-19] MEDS: CINACALCET HCL 30 MG TABLET PO SCH (08:26)
[2017-04-19] MEDS: CALCIUM ACETATE 667 MG CAPSULE PO SCH ×3 (08:26→17:00)
[2017-04-19] MEDS: CEFEPIME HCL 1 GM in IV NORMAL SALINE 50ML 50 ML IV SCH (08:26)
[2017-04-19] MEDS: amLODIPine BESYLATE 10 MG TABLET PO SCH (08:27)
[2017-04-19] MEDS: METOPROLOL TART IMMED RELEASE 25 MG TABLET. PO SCH ×2 (08:28→21:10)
[2017-04-19] MEDS: HYDROcodone/APAP 5/325MG 1 TAB TABLET PO PRN ×2 (08:48→16:04)
--- NOTE | 2017-04-19 09:50 | PDOC ---
Infectious Disease Note Subjective Subjective Feeling little cold, weak and achy Fever Tmax 102.4 No BM, + flatus ROS ROS CV: Denies chest pain RESP: Denies shortness of air, cough GI: Denies n/v/d Vital Sign Vital Signs Vital Signs Date Time Temp Pulse Resp B/P (MAP) Pulse Ox O2 Delivery O2 Flow Rate FiO2 04/19/17 08:48 20 Room Air 04/19/17 08:28 101 118/42 04/19/17 07:00 97.9 92 97.9 Physical Exam PHYSICAL EXAM GENERAL: Up in the chair, smiling and relaxed appearance LUNGS: Clear HEART: S1 and S2 ABD: Soft, NT EXT: No edema, no cyanosis; LUE-AV fistula SENIOR TABLEAU DEVELOPER: Alert, oriented x 3, no focal neurologic deficit SKIN: No rash IV: ok Labs Lab Laboratory Tests Test 04/19/17 05:55 White Blood Count 7.3 x10^3/uL (4.0-11.0) Red Blood Count 3.78 x10^6/uL (3.50-5.40) Hemoglobin 11.4 g/dL (12.0-15.5) Hematocrit 33.8 % (36.0-47.0) Mean Corpuscular Volume 90 fL (79-100) Mean Corpuscular Hemoglobin 30 pg (25-35) Mean Corpuscular Hemoglobin Concent 34 g/dL (31-37) Red Cell Distribution Width 14.2 % (11.5-14.5) Platelet Count 129 x10^3/uL (140-400) Neutrophils (%) (Auto) 79 % (31-73) Lymphocytes (%) (Auto) 8 % (24-48) Monocytes (%) (Auto) 12 % (0-9) Eosinophils (%) (Auto) 1 % (0-3) Basophils (%) (Auto) 0 % (0-3) Neutrophils # (Auto) 5.8 x10^3uL (1.8-7.7) Lymphocytes # (Auto) 0.6 x10^3/uL (1.0-4.8) Monocytes # (Auto) 0.9 x10^3/uL (0.0-1.1) Eosinophils # (Auto) 0.1 x10^3/uL (0.0-0.7) Basophils # (Auto) 0.0 x10^3/uL (0.0-0.2) Random Vancomycin Level 18.5 mcg/mL Micro BLD CULT RESULT 1 Preliminary Gram negative rods Objective Assessment GNR sepsis, POA, 04/17 Fever Leukocytosis CKD on HD mild CHF Plan Plan of Care d/c vanc Continue Gent and Cefepime Await GNR ID/susceptibilities F/u labs and cults Attending Co-Sign Attending Co-Sign The patient was seen and interviewed as well as examined at the bedside. The chart was reviewed. The case was discussed. Agree with the plan of care. EREN DE DIOS APRN Apr 19, 2017 09:50 RANDY BYRD MD Apr 19, 2017 13:28
--- NOTE | 2017-04-19 11:22 | PDOC ---
PROGRESS NOTES Subjective Subjective feeling better today ,no fever Objective Objective Vital Signs Date Time Temp Pulse Resp B/P (MAP) Pulse Ox O2 Delivery O2 Flow Rate FiO2 04/19/17 09:48 20 92 Room Air 04/19/17 08:28 101 118/42 04/19/17 07:00 97.9 97.9 Physical Exam Abdomen: Normal bowel sounds, Soft, No tenderness Heart: Regular rate Extremities: No clubbing General: Alert, Oriented X3, Cooperative, No acute distress HEENT: Atraumatic, PERRLA Lungs: Clear to auscultation MUSCULOSKELETAL: No deformity, No swelling Neuro: Normal speech, Cranial nerves 3-12 NL Psych/Mental Status: Mood NL Diagnosis Problem List Problems Medical Problems: (1) Fever Status: Acute Assessment Assessment Problems Medical Problems: (1) Fever Status: Acute FINAL IMPRESSION: 1. Bacteremia secondary to gram-negative positive blood c/s. 2. Febrile illness secondary to bacteremia. 3. End-stage renal disease, on hemodialysis Thursday, Thursday and Thursday. 4. Hypertension. PLAN: vanco+genta+cefepime. dialysis in am. pt/ot. To admit the patient. Start on broad-spectrum antibiotic, vanc and gent. Pharmacy is managing the doses. ID is consulted. Blood cultures were done and also added cefepime. Also, Renal was consulted for dialysis Thursday, Thursday, Thursday. Discussed with Renal. Problems: Plan Plan of Care Problems Medical Problems: (1) Fever Status: Acute Comment Review of Relevant I have reviewed the following items penny (where applicable) has been applied. Labs Laboratory Tests Test 04/19/17 05:55 White Blood Count 7.3 x10^3/uL (4.0-11.0) Red Blood Count 3.78 x10^6/uL (3.50-5.40) Hemoglobin 11.4 g/dL (12.0-15.5) Hematocrit 33.8 % (36.0-47.0) Mean Corpuscular Volume 90 fL (79-100) Mean Corpuscular Hemoglobin 30 pg (25-35) Mean Corpuscular Hemoglobin Concent 34 g/dL (31-37) Red Cell Distribution Width 14.2 % (11.5-14.5) Platelet Count 129 x10^3/uL (140-400) Neutrophils (%) (Auto) 79 % (31-73) Lymphocytes (%) (Auto) 8 % (24-48) Monocytes (%) (Auto) 12 % (0-9) Eosinophils (%) (Auto) 1 % (0-3) Basophils (%) (Auto) 0 % (0-3) Neutrophils # (Auto) 5.8 x10^3uL (1.8-7.7) Lymphocytes # (Auto) 0.6 x10^3/uL (1.0-4.8) Monocytes # (Auto) 0.9 x10^3/uL (0.0-1.1) Eosinophils # (Auto) 0.1 x10^3/uL (0.0-0.7) Basophils # (Auto) 0.0 x10^3/uL (0.0-0.2) Random Vancomycin Level 18.5 mcg/mL Microbiology 04/17/17 Blood Culture - Preliminary, Resulted NO GROWTH AFTER 1 DAY Medications Current Medications Darbepoetin Ryan (Aranesp) 60 mcg WEEKLYHS SQ Last administered on 04/18/17 21 :17; Start 04/18/17 at 21:00 Enoxaparin Sodium (Lovenox 40mg Syringe) 30 mg Q24H SQ ; Start 04/18/17 at 11:45 ; Status UNV Gentamicin Sulfate 1 each 1X ONCE MC ; Start 04/20/17 at 06:00; Stop 04/20/17 at 06:01 Heparin Sodium (Porcine) (Heparin Sq) 5,000 unit Q8HRS SQ Last administered on 04/19/17 06:40; Start 04/18/17 at 14:00 Vancomycin HCl 1 each 1X ONCE MC ; Start 04/19/17 at 06:00; Stop 04/19/17 at 06 :01; Status DC Vancomycin HCl 500 mg/Sodium Chloride 100 ml @ 100 mls/hr QMWF IV ; Start 04/20 at 16:00; Stop 04/20/17 at 16:00; Status DC Vitals/I & O Vital Sign - Last 24 Hours 04/18/17 04/18/17 04/18/17 04/18/17 15:00 16:07 16:20 19:00 Temp 100.9 102.4 98.2 100.9 102.4 98.2 Pulse 113 89 Resp 20 20 18 B/P (MAP) 159/74 (102) 116/59 (78) Pulse Ox 99 99 97 O2 Delivery Nasal Cannula Room Air Room Air 04/18/17 04/18/17 04/18/17 04/18/17 20:15 21:14 22:22 22:47 Temp 99.1 99.1 Pulse 89 86 Resp 20 18 B/P (MAP) 116/59 136/61 (86) Pulse Ox 98 O2 Delivery Room Air Room Air Room Air 04/19/17 04/19/17 04/19/17 04/19/17 03:00 07:00 08:27 08:28 Temp 98.8 97.9 98.8 97.9 Pulse 82 69 101 101 Resp 18 20 B/P (MAP) 123/52 (75) 118/42 (67) 118/42 118/42 Pulse Ox 96 92 O2 Delivery Room Air Room Air 04/19/17 04/19/17 08:48 09:48 Resp 20 20 Pulse Ox 92 O2 Delivery Room Air Room Air MARIA TERESA HUIZAR MD Apr 19, 2017 11:22
--- NOTE | 2017-04-19 12:26 | PDOC ---
Renal-Progress Notes Subjective Notes Notes FEELING BETTER History of Present Illness Hx of present illness STABLE Vitals Vitals Vital Signs Date Time Temp Pulse Resp B/P (MAP) Pulse Ox O2 Delivery O2 Flow Rate FiO2 04/19/17 09:48 20 92 Room Air 04/19/17 08:28 101 118/42 04/19/17 07:00 97.9 97.9 Weight Weight [ ] Labs Labs Laboratory Tests Test 04/19/17 05:55 White Blood Count 7.3 x10^3/uL (4.0-11.0) Red Blood Count 3.78 x10^6/uL (3.50-5.40) Hemoglobin 11.4 g/dL (12.0-15.5) Hematocrit 33.8 % (36.0-47.0) Mean Corpuscular Volume 90 fL (79-100) Mean Corpuscular Hemoglobin 30 pg (25-35) Mean Corpuscular Hemoglobin Concent 34 g/dL (31-37) Red Cell Distribution Width 14.2 % (11.5-14.5) Platelet Count 129 x10^3/uL (140-400) Neutrophils (%) (Auto) 79 % (31-73) Lymphocytes (%) (Auto) 8 % (24-48) Monocytes (%) (Auto) 12 % (0-9) Eosinophils (%) (Auto) 1 % (0-3) Basophils (%) (Auto) 0 % (0-3) Neutrophils # (Auto) 5.8 x10^3uL (1.8-7.7) Lymphocytes # (Auto) 0.6 x10^3/uL (1.0-4.8) Monocytes # (Auto) 0.9 x10^3/uL (0.0-1.1) Eosinophils # (Auto) 0.1 x10^3/uL (0.0-0.7) Basophils # (Auto) 0.0 x10^3/uL (0.0-0.2) Random Vancomycin Level 18.5 mcg/mL Micro Micro Microbiology 04/17/17 Blood Culture - Preliminary, Resulted NO GROWTH AFTER 1 DAY Review of Systems Constitutional: yes: chills, weakness, alert, oriented Ears/Nose/Throat: Yes: no symptom reported Eyes: Yes: no symptom reported Pulmonary: Yes no symptom reported Cardiovascular: Yes no symptom reported Gastrointestional: Yes: no symptom reported Genitourinary: Yes: no symptom reported Musculoskeletal: Yes: no symptom reported Skin: Yes no symptom reported Psychiatric/Neurological: Yes: no symptom reported Endocrine: Yes: no symptom reported Physical Exam General Appearance: no apparent distress Skin: warm Respiratory: bilateral CTA Heart: S1S2 Abdomen: soft, bowel sounds present Genitourinary: bladder flat Extremities: pulses present Neurology: alert Musculoskeletal: Osteoarthritis, Muscle atrophy, Weakness Assessment Assessment IMP ESRD ANEMIA G NEG BACTEREMIA HTN PLAN ANTIBIOTICS HD TOMORROW UMAIR MAC MD Apr 19, 2017 12:26
[2017-04-19] MEDS: ACETAMINOPHEN 325 MG TABLET. PO PRN (16:04)
[2017-04-20 03:00] VITALS: BP 120/55
[2017-04-20 05:04] LABS: CALCIUM 9.2 mg/dL (8.5-10.1); CREATININE 10.3 mg/dL (0.6-1.0); GFR 4.5; POTASSIUM 4.4 mmol/L (3.5-5.1)
[2017-04-20] MEDS: HEPARIN PF for SUB-Q USE 5,000 UNIT/0.5 ML VIAL. SQ SCH ×3 (05:52→20:36)
[2017-04-20] MEDS ORDERED: GENTAMICIN RANDOM LEVEL. MC ONE (06:00)
[2017-04-20 07:20] VITALS: BP 126/56
[2017-04-20] MEDS: METOPROLOL TART IMMED RELEASE 25 MG TABLET. PO SCH ×2 (08:44→20:36)
[2017-04-20] MEDS: amLODIPine BESYLATE 10 MG TABLET PO SCH (08:45)
[2017-04-20] MEDS: CALCIUM ACETATE 667 MG CAPSULE PO SCH ×3 (08:45→17:19)
[2017-04-20] MEDS: FOLIC/VIT B COMP W-C (RENAL) TABLET. PO SCH (08:45)
[2017-04-20] MEDS: CINACALCET HCL 30 MG TABLET PO SCH (08:45)
[2017-04-20] MEDS: CEFEPIME HCL 1 GM in IV NORMAL SALINE 50ML 50 ML IV SCH (08:46)
--- NOTE | 2017-04-20 08:46 | PDOC ---
Infectious Disease Note Subjective Subjective Feeling little achy still Occ cough No BM, + flatus ROS ROS GEN: Denies fevers, chills, sweats HEENT: Denies blurred vision, sore throat CV: Denies chest pain RESP: Denies shortness of air, cough GI: Denies n/v/d NEURO: Denies confusion, dizziness MSK: Denies weakness, joint pain/swelling Vital Sign Vital Signs Vital Signs Date Time Temp Pulse Resp B/P (MAP) Pulse Ox O2 Delivery O2 Flow Rate FiO2 04/20/17 07:51 Room Air 04/20/17 07:20 97.7 116 18 126/56 (79) 98 97.7 Physical Exam PHYSICAL EXAM GENERAL: NAD, Alert, in chair. looks better HEENT: PERRL, OC/OP - clear NECK: Supple, no JVD, no LN LUNGS: Clear HEART: S1S2, no gallop, no murmur ABD: Soft, NT, no organomegaly, no rebound EXT: No edema, no cyanosis FRACTIONATION PLANT SUPERVISOR: Alert, oriented x 3, no focal neurologic deficit SKIN: No rash IV: Right thigh is clean Labs Lab Laboratory Tests Test 04/20/17 03:45 Sodium Level 138 mmol/L (136-145) Potassium Level 4.4 mmol/L (3.5-5.1) Chloride Level 101 mmol/L (98-107) Carbon Dioxide Level 23 mmol/L (21-32) Anion Gap 14 (6-14) Blood Urea Nitrogen 57 mg/dL (7-20) Creatinine 10.3 mg/dL (0.6-1.0) Estimated GFR (Cockcroft-Gault) 4.5 Glucose Level 256 mg/dL (70-99) Calcium Level 9.2 mg/dL (8.5-10.1) Random Gentamicin Level 3.8 mcg/mL Objective Assessment Fever - improving Klebsiella sepsis - POA 04/17 Leukocytosis - better CKD on HD mild CHF Plan Plan of Care Continue Gent and Cefepime Repeat blood cults F/u labs and cults RANDY BYRD MD Apr 20, 2017 08:46
[2017-04-20] MEDS ORDERED: IV NORMAL SALINE 1000ML BAG 1,000 ML IV PRN (09:39)
[2017-04-20] MEDS ORDERED: DIALYSIS PATIENT. MC PRN (09:45)
--- NOTE | 2017-04-20 10:26 | PDOC ---
PROGRESS NOTES Subjective Subjective feels better Objective Objective Vital Signs Date Time Temp Pulse Resp B/P (MAP) Pulse Ox O2 Delivery O2 Flow Rate FiO2 04/20/17 08:45 116 126/56 04/20/17 07:51 Room Air 04/20/17 07:20 97.7 18 98 97.7 Intake and Output 04/21/17 07:00 Intake Total 60 ml Balance 60 ml Intake Oral 60 ml Physical Exam Abdomen: Normal bowel sounds, Soft, No tenderness Heart: Regular rate Extremities: No clubbing General: Alert, Oriented X3, Cooperative, No acute distress HEENT: Atraumatic, PERRLA Lungs: Clear to auscultation MUSCULOSKELETAL: No deformity, No swelling Neuro: Normal speech, Cranial nerves 3-12 NL Psych/Mental Status: Mood NL Diagnosis Problem List Problems Medical Problems: (1) Fever Status: Acute Assessment Assessment Problems Medical Problems: (1) Fever Status: Acute FINAL IMPRESSION: 1. Bacteremia secondary to gram-negative positive blood c/s.Klebsiella 2. Febrile illness secondary to bacteremia. 3. End-stage renal disease, on hemodialysis Thursday, Thursday and Thursday. 4. Hypertension. PLAN: noted blood c/s and sensitivity genta+cefepime. appreciate ID consult dialysis today pt/ot. Problems: Plan Plan of Care Problems Medical Problems: (1) Fever Status: Acute Comment Review of Relevant I have reviewed the following items penny (where applicable) has been applied. Labs Laboratory Tests Test 04/20/17 03:45 Sodium Level 138 mmol/L (136-145) Potassium Level 4.4 mmol/L (3.5-5.1) Chloride Level 101 mmol/L (98-107) Carbon Dioxide Level 23 mmol/L (21-32) Anion Gap 14 (6-14) Blood Urea Nitrogen 57 mg/dL (7-20) Creatinine 10.3 mg/dL (0.6-1.0) Estimated GFR (Cockcroft-Gault) 4.5 Glucose Level 256 mg/dL (70-99) Calcium Level 9.2 mg/dL (8.5-10.1) Random Gentamicin Level 3.8 mcg/mL Microbiology 04/17/17 Blood Culture - Preliminary, Resulted NO GROWTH AFTER 2 DAYS Medications Current Medications Gentamicin Sulfate 1 each 1X ONCE MC Last administered on 04/20/17t 05:48; Start 04/20/17 at 06:00; Stop 04/20/17 at 06:01; Status DC Info (PHARMACY MONITORING -- do not chart) 1 each PRN DAILY PRN MC SEE COMMENTS ; Start 04/20/17 at 09:45 Sodium Chloride 1,000 ml @ 1,000 mls/hr Q1H PRN IV hypotension; Start 04/20/17 at 09:39; Stop 04/20/17 at 15:38 Vancomycin HCl 500 mg/Sodium Chloride 100 ml @ 100 mls/hr QMWF IV ; Start 04/20 at 16:00; Stop 04/20/17 at 16:00; Status DC Vitals/I & O Vital Sign - Last 24 Hours 04/19/17 04/19/17 04/19/17 04/19/17 11:00 15:17 16:04 16:30 Temp 97.9 97.8 100.8 97.9 97.8 100.8 Pulse 115 79 91 Resp 20 20 20 20 B/P (MAP) 134/32 (66) 146/39 (74) 123/56 (78) Pulse Ox 96 96 96 98 O2 Delivery Room Air Room Air Room Air Room Air 04/19/17 04/19/17 04/19/17 04/19/17 17:04 19:00 19:43 21:10 Temp 98.1 98.1 Pulse 83 83 Resp 20 18 B/P (MAP) 114/54 (74) 114/54 Pulse Ox 96 97 O2 Delivery Room Air Room Air Room Air 04/19/17 04/20/17 04/20/17 04/20/17 22:54 03:00 07:20 07:38 Temp 97.9 98.8 97.7 97.9 98.8 97.7 Pulse 101 108 116 Resp 18 18 18 B/P (MAP) 116/45 (68) 120/55 (76) 126/56 (79) Pulse Ox 95 94 98 O2 Delivery Room Air Room Air Room Air Room Air 04/20/17 04/20/17 04/20/17 07:51 08:44 08:45 Pulse 116 116 B/P (MAP) 126/56 126/56 O2 Delivery Room Air Intake and Output 04/20/17 04/20/17 04/21/17 15:00 23:00 07:00 Intake Total 60 ml Balance 60 ml MARIA TERESA HUIZAR MD Apr 20, 2017 10:26
--- NOTE | 2017-04-20 11:15 | PDOC ---
Renal-Progress Notes Subjective Notes Notes COUGHING UP SOME CLEAR MATERIAL, NO SOB History of Present Illness Hx of present illness STABLE Vitals Vitals Vital Signs Date Time Temp Pulse Resp B/P (MAP) Pulse Ox O2 Delivery O2 Flow Rate FiO2 04/20/17 08:45 116 126/56 04/20/17 07:51 Room Air 04/20/17 07:20 97.7 18 98 97.7 Weight Weight [ ] I.O. Intake and Output Intake and Output 04/21/17 07:00 Intake Total 60 ml Balance 60 ml Intake Oral 60 ml Labs Labs Laboratory Tests Test 04/20/17 03:45 Sodium Level 138 mmol/L (136-145) Potassium Level 4.4 mmol/L (3.5-5.1) Chloride Level 101 mmol/L (98-107) Carbon Dioxide Level 23 mmol/L (21-32) Anion Gap 14 (6-14) Blood Urea Nitrogen 57 mg/dL (7-20) Creatinine 10.3 mg/dL (0.6-1.0) Estimated GFR (Cockcroft-Gault) 4.5 Glucose Level 256 mg/dL (70-99) Calcium Level 9.2 mg/dL (8.5-10.1) Random Gentamicin Level 3.8 mcg/mL Micro Micro Microbiology 04/17/17 Blood Culture - Preliminary, Resulted NO GROWTH AFTER 2 DAYS Review of Systems Constitutional: yes: chills, weakness, alert, oriented Ears/Nose/Throat: Yes: no symptom reported Eyes: Yes: no symptom reported Pulmonary: Yes no symptom reported Cardiovascular: Yes no symptom reported Gastrointestional: Yes: no symptom reported Genitourinary: Yes: no symptom reported Musculoskeletal: Yes: no symptom reported Skin: Yes no symptom reported Psychiatric/Neurological: Yes: no symptom reported Endocrine: Yes: no symptom reported Physical Exam General Appearance: no apparent distress Skin: warm Respiratory: bilateral CTA Heart: S1S2 Abdomen: soft, bowel sounds present Genitourinary: bladder flat Extremities: pulses present Neurology: alert Musculoskeletal: Osteoarthritis, Muscle atrophy, Weakness Assessment Assessment IMP ESRD WITH RIGHT THIGH GRAFT-PATENT ANEMIA G NEG BACTEREMIA HTN PLAN ANTIBIOTICS HD TODAY UF TO UMAIR GLOVER MD Apr 20, 2017 11:15
[2017-04-20 14:30] VITALS: BP 122/59
[2017-04-20] MEDS: HYDROcodone/APAP 5/325MG 1 TAB TABLET PO PRN ×2 (15:03→21:34)
[2017-04-20] MEDS ORDERED: VANCOMYCIN 500 MG in IV NORMAL SALINE 100ML 100 ML IV SCH (16:00)
[2017-04-20] MEDS: GENTAMICIN PER PHARMACY. MC PRN (16:05)
[2017-04-20] MEDS: NORMAL SALINE IV SCH (18:05)
[2017-04-20] MEDS: GENTAMICIN SULFATE IV SCH (18:05)
[2017-04-20 19:00] VITALS: BP 123/49
[2017-04-20 23:00] VITALS: BP 113/58
[2017-04-20] MEDS ORDERED: ALBUTEROL SULFATE 2.5 MG/3 ML NEBU. NEB PRN (23:30)
[2017-04-20] MEDS ORDERED: guaiFENesin DM 200MG/20MG 10 ML SYRUP PO PRN (23:30)
[2017-04-21 03:15] VITALS: BP 108/55
[2017-04-21] MEDS: HEPARIN PF for SUB-Q USE 5,000 UNIT/0.5 ML VIAL. SQ SCH ×3 (05:59→21:34)
[2017-04-21] MEDS: IPRATRPIUM/ALBUTEROL 0.5/2.5MG 3 ML NEBU. NEB SCH ×4 (07:02→19:54)
[2017-04-21 07:15] VITALS: BP 167/74
[2017-04-21] MEDS: CALCIUM ACETATE 667 MG CAPSULE PO SCH ×4 (08:00→17:00)
--- NOTE | 2017-04-21 10:15 | PDOC ---
Infectious Disease Note Subjective Subjective Occ cough still No BM, + flatus ROS ROS GEN: Denies fevers, chills, sweats HEENT: Denies blurred vision, sore throat CV: Denies chest pain RESP: Denies shortness of air, cough GI: Denies n/v/d NEURO: Denies confusion, dizziness MSK: Denies weakness, joint pain/swelling Vital Sign Vital Signs Vital Signs Date Time Temp Pulse Resp B/P (MAP) Pulse Ox O2 Delivery O2 Flow Rate FiO2 04/21/17 07:15 97.9 99 18 167/74 (105) 96 Room Air 97.9 Physical Exam PHYSICAL EXAM GENERAL: NAD, Alert, in bed and sat up easily. looks better HEENT: PERRL, OC/OP - clear NECK: Supple, no JVD, no LN LUNGS: Clear HEART: S1S2, no gallop, no murmur ABD: Soft, NT, no organomegaly, no rebound EXT: No edema, no cyanosis ENVIRONMENT COORDINATOR: Alert, oriented x 3, no focal neurologic deficit SKIN: No rash IV: Right thigh is clean Labs Micro 04/17 Klebsiella pneumoniae Recovered from aerobic and anaerobic bottles. ANTIMICROBIAL SUSCEPTIBILITY Final Comment S = Susceptible; I = Intermediate; R = Resistant P = Positive; N = Negative MICS are expressed in micrograms per mL Antibiotic RSLT#1 RSLT#2 RSLT#3 RSLT#4 Amoxicillin/Clavulanic Acid S Ampicillin R Cefepime S Ceftriaxone S Cefuroxime I Cephalothin I Ciprofloxacin S Ertapenem S Gentamicin S Imipenem S Levofloxacin S Nitrofurantoin R Piperacillin R Tetracycline R Tobramycin S Trimethoprim/Sulfa S Objective Assessment Fever - improving Klebsiella sepsis - POA 04/17. No pain etc associated with AV graft Leukocytosis - better Ongoing cough ? reflux CKD on HD mild CHF Plan Plan of Care Trial of Protonix with cough Continue Gent and Cefepime. hope to d/c on Gent with HD if repeat cults remain neg Repeat blood cults F/u labs and cults RANDY BYRD MD Apr 21, 2017 10:15
[2017-04-21] MEDS: amLODIPine BESYLATE 10 MG TABLET PO SCH (10:25)
[2017-04-21] MEDS: CINACALCET HCL 30 MG TABLET PO SCH (10:25)
[2017-04-21] MEDS: FOLIC/VIT B COMP W-C (RENAL) TABLET. PO SCH (10:25)
[2017-04-21] MEDS: HYDROcodone/APAP 5/325MG 1 TAB TABLET PO PRN ×2 (10:26→12:25)
[2017-04-21] MEDS: PANTOPRAZOLE 40 MG TABLET.DR. PO SCH (10:27)
[2017-04-21] MEDS: CEFEPIME HCL 1 GM in IV NORMAL SALINE 50ML 50 ML IV SCH (10:27)
[2017-04-21] MEDS: METOPROLOL TART IMMED RELEASE 25 MG TABLET. PO SCH ×2 (10:27→21:39)
[2017-04-21] MEDS: guaiFENesin DM 200MG/20MG 10 ML SYRUP PO PRN ×2 (10:27→23:22)
[2017-04-21 10:30] VITALS: BP 136/66
--- NOTE | 2017-04-21 11:27 | PDOC ---
Renal-Progress Notes Subjective Notes Notes NO NEW COMPLAINTS History of Present Illness Hx of present illness STABLE Vitals Vitals Vital Signs Date Time Temp Pulse Resp B/P (MAP) Pulse Ox O2 Delivery O2 Flow Rate FiO2 04/21/17 11:20 Room Air 04/21/17 10:30 98.2 92 18 136/66 (89) 94 98.2 Weight Weight [ ] I.O. Intake and Output Intake and Output 04/22/17 07:00 Intake Total 220 ml Balance 220 ml Intake Oral 220 ml Micro Micro Microbiology 04/20/17 Blood Culture - Preliminary, Resulted NO GROWTH AFTER 1 DAY Review of Systems Constitutional: yes: chills, weakness, alert, oriented Ears/Nose/Throat: Yes: no symptom reported Eyes: Yes: no symptom reported Pulmonary: Yes no symptom reported Cardiovascular: Yes no symptom reported Gastrointestional: Yes: no symptom reported Genitourinary: Yes: no symptom reported Musculoskeletal: Yes: no symptom reported Skin: Yes no symptom reported Psychiatric/Neurological: Yes: no symptom reported Endocrine: Yes: no symptom reported Physical Exam General Appearance: no apparent distress Skin: warm Respiratory: bilateral CTA Heart: S1S2 Abdomen: soft, bowel sounds present Genitourinary: bladder flat Extremities: pulses present Neurology: alert Musculoskeletal: Osteoarthritis, Muscle atrophy, Weakness Assessment Assessment IMP ESRD WITH RIGHT THIGH GRAFT-PATENT ANEMIA G NEG BACTEREMIA HTN PLAN ANTIBIOTICS HD TOMORROW UMAIR MAC MD Apr 21, 2017 11:27
--- NOTE | 2017-04-21 12:57 | PDOC ---
PROGRESS NOTES Subjective Subjective palpitations with exertions ,hr going up to 140 Objective Objective Vital Signs Date Time Temp Pulse Resp B/P (MAP) Pulse Ox O2 Delivery O2 Flow Rate FiO2 04/21/17 12:25 Room Air 04/21/17 10:30 98.2 92 18 136/66 (89) 94 98.2 Intake and Output 04/22/17 06:59 Intake Total 220 ml Balance 220 ml Intake Oral 220 ml Physical Exam Abdomen: Normal bowel sounds, Soft, No tenderness Heart: Regular rate Extremities: No clubbing General: Alert, Oriented X3, Cooperative, No acute distress HEENT: Atraumatic, PERRLA Lungs: Clear to auscultation MUSCULOSKELETAL: No deformity, No swelling Neuro: Normal speech, Cranial nerves 3-12 NL Psych/Mental Status: Mood NL Diagnosis Problem List Problems Medical Problems: (1) Fever Status: Acute Assessment Assessment Problems Medical Problems: (1) Fever Status: Acute FINAL IMPRESSION: * tachycardia hr 140 range 1. Bacteremia secondary to gram-negative positive blood c/s.Klebsiella 2. Febrile illness secondary to bacteremia. 3. End-stage renal disease, on hemodialysis Thursday, Thursday and Thursday. 4. Hypertension. PLAN:ekg/heart monitor for tachycardia echo and cardiology consult noted blood c/s and sensitivity genta+cefepime. appreciate ID consult dialysis yesterday pt/ot. Problems: Plan Plan of Care Problems Medical Problems: (1) Fever Status: Acute Comment Review of Relevant I have reviewed the following items penny (where applicable) has been applied. Labs Microbiology 04/20/17 Blood Culture - Preliminary, Resulted NO GROWTH AFTER 1 DAY Medications Current Medications Albuterol Sulfate (Ventolin Neb Soln) 2.5 mg PRN Q2HRS PRN NEB SHORTNESS OF BREATH; Start 04/20/17 at 23:30 Albuterol/ Ipratropium (Duoneb) 3 ml RTQID NEB Last administered on 04/21/17 11:19; Start 04/21/17 at 08:00 Gentamicin Sulfate 60 mg/ Sodium Chloride 101.5 ml @ 203 mls/hr QMWF IV Last administered on 04/20/17 18:05; Start 04/20/17 at 17:00 Guaifenesin (Robitussin Dm) 5 ml PRN QID PRN PO MODERATE COUGH; Start 04/20/17 at 23:30 Guaifenesin (Robitussin Dm) 10 ml PRN QID PRN PO SEVERE COUGH Last administered on 04/21/17 10:27; Start 04/20/17 at 23:30 Pantoprazole Sodium (Protonix) 40 mg DAILYAC PO Last administered on 04/21/17 10:27; Start 04/21/17 at 11:30 Vancomycin HCl 500 mg/Sodium Chloride 100 ml @ 100 mls/hr QMWF IV ; Start 04/20 at 16:00; Stop 04/20/17 at 16:00; Status DC Vitals/I & O Vital Sign - Last 24 Hours 04/20/17 04/20/17 04/20/17 04/20/17 14:30 15:03 17:20 19:00 Temp 97.9 98.3 97.9 98.3 Pulse 93 101 Resp 18 18 B/P (MAP) 122/59 (80) 123/49 (73) Pulse Ox 97 98 98 93 O2 Delivery Room Air Room Air Room Air 04/20/17 04/20/17 04/20/17 04/20/17 20:00 20:36 21:34 22:34 Pulse 96 B/P (MAP) 139/67 O2 Delivery Room Air Room Air Room Air 04/20/17 04/21/17 04/21/17 04/21/17 23:00 03:15 07:02 07:15 Temp 98.9 97.9 97.9 98.9 97.9 97.9 Pulse 94 78 99 Resp 20 20 18 B/P (MAP) 113/58 (76) 108/55 (72) 167/74 (105) Pulse Ox 94 96 100 96 O2 Delivery Room Air Room Air Room Air Room Air 04/21/17 04/21/17 04/21/17 04/21/17 08:00 10:25 10:27 10:30 Temp 98.2 98.2 Pulse 99 99 92 Resp 18 B/P (MAP) 167/74 167/74 136/66 (89) Pulse Ox 94 O2 Delivery Room Air Room Air 04/21/17 04/21/17 11:20 12:25 O2 Delivery Room Air Room Air Intake and Output 04/21/17 04/21/17 04/22/17 14:59 22:59 06:59 Intake Total 220 ml Balance 220 ml KODURI,VINAYA K MD Apr 21, 2017 12:57
--- NOTE | 2017-04-21 13:57 | EKG ---
[facility] [address] [place] [address] Test Date: 2017-04-21 Test Time: 13:54:08 Pat Name: JUD GARNER Department: Room: 510 Gender: F [employer] Machinist: OLIVA : 1950 Requested By: MARIA TERESA HUIZAR Order Number: [id number] Reading MD: Measurements Intervals [place] Rate: 88 P: 54 [place]: 168 QRS: -39 QRSD: 94 T: 96 QT: 356 QTc: 434 Interpretive Statements SINUS RHYTHM LEFT ATRIAL ABNORMALITY ABNORMAL LEFT AXIS DEVIATION R-S TRANSITION ZONE IN V LEADS DISPLACED TO THE LEFT LEFT ANTERIOR FASCICULAR BLOCK CONSIDER LEFT VENTRICULAR HYPERTROPHY ABNORMAL ECG RI6.01 Compared to ECG 07/21/2015 02:58:13 Left anterior fascicular block now present Sinus tachycardia no longer present
--- NOTE | 2017-04-21 14:11 | PDOC2 ---
CARDIAC CONSULT DATE OF CONSULT Date of Consult DATE: 04/21/17 TIME: 13:47 REASON FOR CONSULT Reason for Consult: tachycardia REFERRING PHYSICIAN Referring Physician: Umair SOURCE Source: Chart review, Patient HISTORY OF PRESENT ILLNESS HISTORY OF PRESENT ILLNESS This is a pleasant 67 yo female admitted for complains of nausea and vomiting diarrhea and has been having fever. Denies any CP, SOA. Upon admission she was noted with bacteremia and eventually noted with HR in the 140s. Does not feel intermittent palpitations and her BP has been controlled. Presently she is laying flat and denies any SOA and denies discomfort. Denies any VTE, falls or any recent injury. PAST MEDICAL HISTORY Cardiovascular: CAD (?), HTN, Hyperlipidemia GI: Constipation Heme/Onc: Anemia NOS Musculoskeletal: Osteoarthritis Renal/: Chronic renal failure Endocrine: Hyperparathyroidism PAST SURGICAL HISTORY Past Surgical History: Other (MELINA shunt with revision) FAMILY HISTORY Family History: Coronary Artery Disease (mother) SOCIAL HISTORY Smoke: No ALCOHOL: none Drugs: None Lives: with Family CURRENT MEDICATIONS CURRENT MEDICATIONS Current Medications Medications (Trade) Dose Ordered Sig/Noris Route PRN Reason Start Time Stop Time Status Last Admin Dose Admin Gentamicin Sulfate 60 mg/ Sodium Chloride 101.5 ml @ 203 mls/hr QMWF IV 04/20/17 17:00 04/20/17 18:05 Albuterol/ Ipratropium (Duoneb) 3 ml RTQID NEB 04/21/17 08:00 04/21/17 11:19 Guaifenesin (Robitussin Dm) 10 ml PRN QID PRN PO SEVERE COUGH 04/20/17 23:30 04/21/17 10:27 Pantoprazole Sodium (Protonix) 40 mg DAILYAC PO 04/21/17 11:30 04/21/17 10:27 ALLERGIES ALLERGIES: Coded Allergies: diphenhydramine (Verified Adverse Reaction, Mild, Anxiety, 01/17/16) ROS Review of System 14 point ROS evaluated with pertinent positives noted per HPI PHYSICAL EXAM General: Alert, Oriented X3, Cooperative, No acute distress HEENT: Atraumatic, Mucous membr. moist/pink Lungs: Other (diminisehd bases) Heart: Regular rate (SR with PACs), Normal S1, Normal S2, Other (S4, 3/6 systolic murmur to apical and CHANCE border) Abdomen: Soft, No tenderness Extremities: No cyanosis, No edema Skin: No breakdown, No significant lesion Neuro: Sensation intact Psych/Mental Status: Mental status NL, Mood NL MUSCULOSKELETAL: No joint tenderness, Osteoarthritic changes both hands VITALS VITALS Vital Signs Date Time Temp Pulse Resp B/P (MAP) Pulse Ox O2 Delivery O2 Flow Rate FiO2 04/21/17 13:31 Room Air 04/21/17 10:30 98.2 92 18 136/66 (89) 94 98.2 ASSESSMENT/PLAN ASSESSMENT/PLAN 1. Tachyarrhythmia: possible episodes of atrial flutter otherwise sinus tach reactive to extracardiac issues as noted below. 2. Sepsis/fever/bacteremia with n/v and diarrhea 3. ESRD 4. HTN: controlled 5. Valvular insufficiency: suspect and MR. 6. CAD?, no prior LHC nor recent MPI 7. Chronic diastolic CHF: compensated Recommendations 1. Continue with current metoprolol. Treate extracardiac conditions 2. EKG. CXR. Monitor rhythm overnight. TTE today. 3, Continue with BP control. Start on ASA 81 mg 4. Fluid off loading per HD Problems: ROWENA RUST APRN Apr 21, 2017 14:11
[2017-04-21 14:30] VITALS: BP 145/77
[2017-04-21] MEDS: GENTAMICIN PER PHARMACY. MC PRN (14:46)
--- NOTE | 2017-04-21 14:56 | RAD ---
Portable chest, 04/21/2017: History: Congestive heart failure Comparison is made to a study from 04/17/2017. The heart is mildly enlarged. There is calcific plaquing and tortuosity of the thoracic aorta. The pulmonary vascularity is normal. No pulmonary infiltrate is seen. There is no evidence of pleural fluid. Surgical clips are projected over the upper chest and lower neck. IMPRESSION: 1. Mild cardiomegaly and aortic atherosclerosis. 2. No acute cardiopulmonary abnormality is detected.
--- NOTE | 2017-04-21 14:57 | CARD ---
APPROVED REPORT EXAM: Two-dimensional and M-mode echocardiogram with Doppler and color Doppler. Other Information Quality : Average Rhythm : Tachycardia INDICATION Hypertension/HCVD Infection: 2D DIMENSIONS Left Atrium(2D)4.8 (1.6-4.0cm)IVSd1.4 (0.7-1.1cm) Aortic Root(2D)2.5 (2.0-3.7cm)LVDd4.3 (3.9-5.9cm) LVOT Diameter2.0 (1.8-2.4cm)PWd1.4 (0.7-1.1cm) LVDs3.3 (2.5-4.0cm)FS (%) 24.1 % SV40.3 mlLVEF(%)48.3 (>50%) Aortic Valve AoV Peak Helio.277.1cm/sAoV VTI63.0cm AO Peak GR.37.0mmHgLVOT VTI 21.36cm AO Mean GR.22mmHgAVA (VTI)1.10cm2 Mitral Valve MV E Xpnbvcrc88.6cm/sMV E Peak Gr.9mmHg MV DECEL [id number] A Zjzsffhp439.1cm/s MV E Mean Gr.4mmHgMV IMY66oq E/A Ratio0.6MV A Qhpaawcs570kw MVA (PHT)3.14cm2 TDI Lateral E' P. V7.99cm/sMedial E' P. V5.72cm/s E/Lateral E'11.8E/Medial E'16.5 Tricuspid Valve TR P. Dolyktpt627hk/sRAP [id number] TR Peak Gr.53qkIqBPCT79qaJc LEFT VENTRICLE The left ventricle is normal size. There is mild concentric left ventricular hypertrophy. Left ventri moo systolic function is low normal. The Ejection Fraction is 45-50%. Mild global hypokinesis. Tissue Doppler imaging reveals mild left ventricular diastolic dysfunction. Transmitral Doppler flow patter n is Grade I-abnormal relaxation pattern. There is no ventricular septal defect visualized. RIGHT VENTRICLE The right ventricle is normal size. The right ventricular systolic function is normal. ATRIA The left atrium is mildly dilated. The right atrium size is normal. The interatrial septum is intact with no evidence for an atrial septal defect or patent foramen ovale as noted on 2-D or Doppler imagi ng. AORTIC VALVE The aortic valve is moderately to severely calcified. The aortic valve is trileaflet. Doppler and Col or Flow revealed no significant aortic regurgitation. Calculated aortic valve area is 1.1 cm2 (likely underestimated) with maximum pressure gradient of 37 mmHg and mean pressure gradient of 22 mmHg. Dop pler and color-flow analysis revealed mild to moderate aortic stenosis. MITRAL VALVE Mitral annular calcification is moderate. The mitral valve leaflets are thickened and calcified. Ther e is no mitral valve stenosis. Doppler and Color Flow revealed mild mitral regurgitation. TRICUSPID VALVE The tricuspid valve is normal in structure and function. Doppler and Color Flow revealed mild tricusp id regurgitation. The PA pressure was estimated at 32 mmHg. There is no tricuspid valve stenosis. PULMONIC VALVE The pulmonic valve is not well visualized. Doppler and Color Flow revealed no pulmonic valvular regur gitation. There is no pulmonic valvular stenosis. GREAT VESSELS The aortic root is normal in size. Pulmonary veins not recorded. The IVC is normal in size and collap ses >50% with inspiration. PERICARDIAL EFFUSION There is no evidence of significant pericardial effusion. Critical Notification Critical Value: No <Conclusion> Left ventricle systolic function is low normal. The Ejection Fraction is 45-50%. Mild global hypokinesis. Calculated aortic valve area is 1.1 cm2 (likely underestimated) with maximum pressure gradient of 37 mmHg and mean pressure gradient of 22 mmHg. Doppler and color-flow analysis revealed mild to moderate aortic stenosis.
[2017-04-21] MEDS ORDERED: ONDANSETRON PF 4 MG/2 ML VIAL. IV PRN (18:00)
[2017-04-21 19:40] VITALS: BP 144/70
[2017-04-21 22:56] VITALS: BP 142/71
[2017-04-22 02:56] VITALS: BP 148/70
[2017-04-22] MEDS: HEPARIN PF for SUB-Q USE 5,000 UNIT/0.5 ML VIAL. SQ SCH ×3 (06:00→22:00)
[2017-04-22] MEDS ORDERED: IV NORMAL SALINE 1000ML BAG 1,000 ML IV PRN ×2 (07:08)
[2017-04-22 07:12] LABS: HEMATOCRIT 33.9 % (36.0-47.0); HEMOGLOBIN 10.8 g/dL (12.0-15.5); RED BLOOD COUNT 3.67 x10^6/uL (3.50-5.40); RED CELL DISTRIBUTION WIDTH 14.9 % (11.5-14.5); WHITE BLOOD COUNT 7.1 x10^3/uL (4.0-11.0)
[2017-04-22] MEDS ORDERED: DIALYSIS PATIENT. MC PRN (07:15)
[2017-04-22 07:22] LABS: CREATININE 8.7 mg/dL (0.6-1.0); GFR 5.5; POTASSIUM 4.4 mmol/L (3.5-5.1)
[2017-04-22 07:25] VITALS: BP 146/68
[2017-04-22] MEDS: PANTOPRAZOLE 40 MG TABLET.DR. PO SCH (07:30)
[2017-04-22] MEDS: IPRATRPIUM/ALBUTEROL 0.5/2.5MG 3 ML NEBU. NEB SCH ×4 (07:48→20:11)
[2017-04-22] MEDS: CALCIUM ACETATE 667 MG CAPSULE PO SCH ×3 (08:00→17:00)
--- NOTE | 2017-04-22 08:49 | PDOC ---
Infectious Disease Note Subjective Subjective Main complaint remains cough and trouble clearing secretions No dizziness/tinnititus ROS ROS GEN: Denies fevers, chills, sweats HEENT: Denies blurred vision, sore throat CV: Denies chest pain RESP: Denies shortness of air, cough GI: Denies n/v/d NEURO: Denies confusion, dizziness MSK: Denies weakness, joint pain/swelling Vital Sign Vital Signs Vital Signs Date Time Temp Pulse Resp B/P (MAP) Pulse Ox O2 Delivery O2 Flow Rate FiO2 04/22/17 07:48 98 Room Air 04/22/17 07:25 98.0 94 16 146/68 (94) 98.0 Physical Exam PHYSICAL EXAM GENERAL: NAD, Alert, in chair and sat up easily. looks better HEENT: PERRL, OC/OP - clear. clear secretions NECK: Supple, no JVD, no LN LUNGS: Clear HEART: S1S2, no gallop, no murmur ABD: Soft, NT, no organomegaly, no rebound EXT: No edema, no cyanosis HYDRO PNEUMATIC TESTER: Alert, oriented x 3, no focal neurologic deficit SKIN: No rash IV: Right thigh is clean Labs Lab Laboratory Tests Test 04/22/17 06:40 White Blood Count 7.1 x10^3/uL (4.0-11.0) Red Blood Count 3.67 x10^6/uL (3.50-5.40) Hemoglobin 10.8 g/dL (12.0-15.5) Hematocrit 33.9 % (36.0-47.0) Mean Corpuscular Volume 93 fL (79-100) Mean Corpuscular Hemoglobin 29 pg (25-35) Mean Corpuscular Hemoglobin Concent 32 g/dL (31-37) Red Cell Distribution Width 14.9 % (11.5-14.5) Platelet Count 195 x10^3/uL (140-400) Sodium Level 136 mmol/L (136-145) Potassium Level 4.4 mmol/L (3.5-5.1) Chloride Level 98 mmol/L (98-107) Carbon Dioxide Level 29 mmol/L (21-32) Anion Gap 9 (6-14) Blood Urea Nitrogen 49 mg/dL (7-20) Creatinine 8.7 mg/dL (0.6-1.0) Estimated GFR (Cockcroft-Gault) 5.5 Glucose Level 471 mg/dL (70-99) Calcium Level 10.0 mg/dL (8.5-10.1) Micro 04/17 Klebsiella pneumoniae Recovered from aerobic and anaerobic bottles. ANTIMICROBIAL SUSCEPTIBILITY Final Comment S = Susceptible; I = Intermediate; R = Resistant P = Positive; N = Negative MICS are expressed in micrograms per mL Antibiotic RSLT#1 RSLT#2 RSLT#3 RSLT#4 Amoxicillin/Clavulanic Acid S Ampicillin R Cefepime S Ceftriaxone S Cefuroxime I Cephalothin I Ciprofloxacin S Ertapenem S Gentamicin S Imipenem S Levofloxacin S Nitrofurantoin R Piperacillin R Tetracycline R Tobramycin S Trimethoprim/Sulfa S Objective Assessment Fever - resolved Klebsiella sepsis - POA 04/17. No pain etc associated with AV graft. repeat cults 04/20 neg. ECHO TTE no gross veg Tachyarrhythmias Leukocytosis - resolved Ongoing cough ? reflux CKD on HD mild CHF Plan Plan of Care Cont Protonix with cough Continue Gent and Cefepime. hope to d/c on Gent with HD if repeat cults remain neg Repeat blood cults F/u labs and cults Await further Cardiology w/u RANDY BYRD MD Apr 22, 2017 08:49
[2017-04-22] MEDS: GENTAMICIN PER PHARMACY. MC PRN (09:34)
--- NOTE | 2017-04-22 09:38 | PDOC ---
PROGRESS NOTES Subjective Subjective c/o cough constant for long time Objective Objective Vital Signs Date Time Temp Pulse Resp B/P (MAP) Pulse Ox O2 Delivery O2 Flow Rate FiO2 04/22/17 07:48 98 Room Air 04/22/17 07:25 98.0 94 16 146/68 (94) 98.0 Physical Exam Abdomen: Soft, No tenderness Heart: Regular rate (SR with PACs), Normal S1, Normal S2, Other (S4, 3/6 systolic murmur to apical and CHANCE border) Extremities: No cyanosis, No edema General: Alert, Oriented X3, Cooperative, No acute distress HEENT: Atraumatic, Mucous membr. moist/pink Lungs: Other (diminisehd bases) MUSCULOSKELETAL: No joint tenderness, Osteoarthritic changes both hands Neuro: Sensation intact Psych/Mental Status: Mental status NL, Mood NL Skin: No breakdown, No significant lesion Diagnosis Problem List Problems Medical Problems: (1) Fever Status: Acute Assessment Assessment Problems Medical Problems: (1) Fever Status: Acute FINAL IMPRESSION: 8chronic cough * tachycardia hr 140 range resolved 1. Bacteremia secondary to gram-negative positive blood c/s.Klebsiella 2. Febrile illness secondary to bacteremia. 3. End-stage renal disease, on hemodialysis Thursday, Thursday and Thursday. 4. Hypertension. PLAN: ct chest and sinus. Pulmonary consult. echo -mod aortic stenosis no vegetations ekg/heart monitor for tachycardia cardiology consult apprecited noted blood c/s and sensitivity genta+cefepime. appreciate ID consult, spoke with ID today dialysis today needs SNU ,needs 10 more days of antibiotics Problems: Plan Plan of Care Problems Medical Problems: (1) Fever Status: Acute Comment Review of Relevant I have reviewed the following items penny (where applicable) has been applied. Labs Laboratory Tests Test 04/22/17 06:40 White Blood Count 7.1 x10^3/uL (4.0-11.0) Red Blood Count 3.67 x10^6/uL (3.50-5.40) Hemoglobin 10.8 g/dL (12.0-15.5) Hematocrit 33.9 % (36.0-47.0) Mean Corpuscular Volume 93 fL (79-100) Mean Corpuscular Hemoglobin 29 pg (25-35) Mean Corpuscular Hemoglobin Concent 32 g/dL (31-37) Red Cell Distribution Width 14.9 % (11.5-14.5) Platelet Count 195 x10^3/uL (140-400) Sodium Level 136 mmol/L (136-145) Potassium Level 4.4 mmol/L (3.5-5.1) Chloride Level 98 mmol/L (98-107) Carbon Dioxide Level 29 mmol/L (21-32) Anion Gap 9 (6-14) Blood Urea Nitrogen 49 mg/dL (7-20) Creatinine 8.7 mg/dL (0.6-1.0) Estimated GFR (Cockcroft-Gault) 5.5 Glucose Level 471 mg/dL (70-99) Calcium Level 10.0 mg/dL (8.5-10.1) Microbiology 04/20/17 Blood Culture - Preliminary, Resulted NO GROWTH AFTER 1 DAY Medications Current Medications Info (PHARMACY MONITORING -- do not chart) 1 each PRN DAILY PRN MC SEE COMMENTS ; Start 04/22/17 at 07:15; Status UNV Ondansetron HCl (Zofran) 4 mg PRN Q6HRS PRN IV NAUSEA/VOMITING; Start 04/21/17 at 18:00 Pantoprazole Sodium (Protonix) 40 mg DAILYAC PO Last administered on 04/21/17t 10:27; Start 04/21/17 at 11:30 Sodium Chloride 1,000 ml @ 400 mls/hr Q2H30M PRN IV PATENCY; Start 04/22/17 at 07:08; Stop 04/22/17 at 19:07 Sodium Chloride 1,000 ml @ 1,000 mls/hr Q1H PRN IV hypotension; Start 04/22/17 at 07:08; Stop 04/22/17 at 13:07 Vitals/I & O Vital Sign - Last 24 Hours 04/21/17 04/21/17 04/21/17 04/21/17 10:25 10:27 10:30 11:20 Temp 98.2 98.2 Pulse 99 99 92 Resp 18 B/P (MAP) 167/74 167/74 136/66 (89) Pulse Ox 94 O2 Delivery Room Air Room Air 04/21/17 04/21/17 04/21/17 04/21/17 12:25 13:31 14:30 15:18 Temp 98.2 98.2 Pulse 91 Resp 18 B/P (MAP) 145/77 (99) Pulse Ox 96 O2 Delivery Room Air Room Air Room Air Room Air 04/21/17 04/21/17 04/21/17 04/21/17 19:40 19:54 20:00 21:39 Temp 98.3 98.3 Pulse 98 95 Resp 18 B/P (MAP) 144/70 (94) 144/70 Pulse Ox 96 100 O2 Delivery Room Air Room Air Room Air 04/21/17 04/22/17 04/22/17 04/22/17 22:56 02:56 07:25 07:48 Temp 98.4 98.1 98.0 98.4 98.1 98.0 Pulse 86 89 94 Resp 20 16 16 B/P (MAP) 142/71 (94) 148/70 (96) 146/68 (94) Pulse Ox 92 93 93 98 O2 Delivery Room Air Room Air Room Air Room Air MARIA TERESA HUIZAR MD Apr 22, 2017 09:38
--- NOTE | 2017-04-22 10:55 | PDOC ---
CARDIO Progress Notes Date and Time Date of Service 04/22/2017 Time of Evaluation 0945 Subjective Subjective: No Chest Pain, No shortness of breath, No Palpitations, Other ( feels anxious, regarding bills) Vitals Vitals Vital Signs Date Time Temp Pulse Resp B/P (MAP) Pulse Ox O2 Delivery O2 Flow Rate FiO2 04/22/17 08:00 Room Air 04/22/17 07:48 98 04/22/17 07:25 98.0 94 16 146/68 (94) 98.0 Weight Weight [ ] Laboratory Labs Laboratory Tests Test 04/22/17 06:40 White Blood Count 7.1 x10^3/uL (4.0-11.0) Red Blood Count 3.67 x10^6/uL (3.50-5.40) Hemoglobin 10.8 g/dL (12.0-15.5) Hematocrit 33.9 % (36.0-47.0) Mean Corpuscular Volume 93 fL (79-100) Mean Corpuscular Hemoglobin 29 pg (25-35) Mean Corpuscular Hemoglobin Concent 32 g/dL (31-37) Red Cell Distribution Width 14.9 % (11.5-14.5) Platelet Count 195 x10^3/uL (140-400) Sodium Level 136 mmol/L (136-145) Potassium Level 4.4 mmol/L (3.5-5.1) Chloride Level 98 mmol/L (98-107) Carbon Dioxide Level 29 mmol/L (21-32) Anion Gap 9 (6-14) Blood Urea Nitrogen 49 mg/dL (7-20) Creatinine 8.7 mg/dL (0.6-1.0) Estimated GFR (Cockcroft-Gault) 5.5 Glucose Level 471 mg/dL (70-99) Calcium Level 10.0 mg/dL (8.5-10.1) Microbiology Micro Microbiology 04/20/17 Blood Culture - Preliminary, Resulted NO GROWTH AFTER 2 DAYS Review of Systems Constitutional: yes: chills, weakness, alert, oriented Ears/Nose/Throat: Yes: no symptom reported Eyes: Yes: no symptom reported Pulmonary: Yes no symptom reported Cardiovascular: Yes no symptom reported Gastrointestional: Yes: no symptom reported Genitourinary: Yes: no symptom reported Musculoskeletal: Yes: no symptom reported Skin: Yes no symptom reported Psychiatric/Neurological: Yes: no symptom reported Endocrine: Yes: no symptom reported Physical Exam HEENT: Neck Supple W Full Motion Chest: Symmetric LUNGS: Other (diminished bases) Heart: S1S2, RRR (SR/ST) Abdomen: Soft N/T Extremities: No Calf Tenderness Neurology: alert, oriented, follow commands Assessment Assessment 1. Tachyarrhythmia: mainly sinus tach worse upon coughing, no definitive atrial flutter or atrial tach. Reactive to infectious process. Presently in the 90s. 2. Sepsis/fever/bacteremia with n/v and diarrhea 3. ESRD 4. HTN: controlled 5. Valvular insufficiency: mode and mild MR. 6. CAD?, no prior LHC nor recent MPI 7. Chronic diastolic CHF: EF 45-50% with mild global hypokinesis Recommendations 1. Increase metoprolol. Treat extracardiac conditions 2. Will consider for event monitor 3, Continue with BP control. ASA. 4. Fluid off loading per HD 5. Will need stress test as an outpt for further risk stratification unless there has been recent stress test. ROWENA RUST APRN Apr 22, 2017 10:55
--- NOTE | 2017-04-22 10:58 | PDOC ---
Provider Note Provider Note dictated SIN CORADO MD Apr 22, 2017 10:58
[2017-04-22] MEDS ORDERED: METOPROLOL TART IMMED RELEASE 25 MG TABLET. PO ONE (11:00)
[2017-04-22] MEDS: FLUTICASONE 50MCG/NASAL SPRAY 16GM BOTTLE. NS SCH (11:00)
--- NOTE | 2017-04-22 11:15 | CONS ---
DATE OF CONSULTATION: ATTENDING PHYSICIAN: Dr. Block. REASON FOR CONSULTATION: Persistent cough. HISTORY OF PRESENT ILLNESS: The patient is a 67-year-old female who has history of end-stage renal disease. She has been on dialysis for the last 20 years. The patient was brought into the hospital as she was not feeling well for the last 2-3 days. She had some nausea and vomiting. The patient has been found to have Klebsiella bacteremia. She is seen by Infectious Disease and she has been on broad spectrum antibiotics. Her chest x-ray has been clear. I have been asked to see her for further evaluation of a cough. Upon further questioning, the patient's cough has been present for at least 5 years. She states as she is aging the cough is getting worse. It is usually worse at nighttime. She said she has a lot of allergies, she has increased lacrimation. She has sometimes swollen eyes. She is not a smoker. No hemoptysis. No significant weight loss. She lives in an apartment. There are no pets at home. Consultation is requested for further evaluation of her chronic cough. PAST MEDICAL HISTORY: Significant for history of hypertension, history of end-stage renal disease, on hemodialysis. PAST SURGICAL HISTORY: Including multiple dialysis access, and which were removed. ALLERGIES: BENADRYL. SOCIAL HISTORY: No history of tobacco use. MEDICATIONS: All reviewed as listed in the MRAD. REVIEW OF SYSTEMS: Twelve-point systems obtained. Pertinent positives discussed in history of present illness, otherwise noncontributory. All systems that were negative were reviewed as well. PHYSICAL EXAMINATION: GENERAL: She is awake, following commands. VITAL SIGNS: Reviewed. Pulse ox 98% on room air, afebrile. HEENT: Sclerae nonicteric. NECK: Supple. LUNGS: No wheezing. CARDIOVASCULAR: Regular rate and rhythm. ABDOMEN: Soft. EXTREMITIES: With no pitting edema. LABORATORY DATA: Reviewed. White cell count 7.1, hemoglobin 10.8 and platelets are 195. IMPRESSION: 1. Chronic persistent cough for last 5 years with some progression in the last few months. The cough can be multifactorial. I suspect a combination of allergic rhinitis and possible reactive airway disease. There is no evidence of any congestive heart failure on the chest x-ray and she is not on any ANNE inhibitors. There are no constitutional symptoms of malignancy. 2. Recent Klebsiella bacteremia. 3. End-stage renal disease, on hemodialysis. 4. No significant history of tobacco use. RECOMMENDATIONS: 1. Continue present nebulizer treatment. 2. Add a steroid nebulizer, Pulmicort. At home, Flovent inhaler will be placed at the time of discharge. 3. Add Singulair. 4. Flonase nasal spray. 5. At this point, I do not see a need for CT chest; however, if the cough does not improve with current medications then we will consider noncontrast CT chest. 6. Continue antibiotics per Infectious Disease for bacteremia. 7. Continue hemodialysis. 8. We will follow along with you. SIN CORADO MD DR: MIHAELA/elijah JOB#: [id number] / [id number]
--- NOTE | 2017-04-22 11:55 | PDOC ---
Renal-Progress Notes Subjective Notes Notes NO NEW COMPLAINTS History of Present Illness Hx of present illness STABLE Vitals Vitals Vital Signs Date Time Temp Pulse Resp B/P (MAP) Pulse Ox O2 Delivery O2 Flow Rate FiO2 04/22/17 11:04 Room Air 04/22/17 07:48 98 04/22/17 07:25 98.0 94 16 146/68 (94) 98.0 Weight Weight [ ] Labs Labs Laboratory Tests Test 04/22/17 06:40 White Blood Count 7.1 x10^3/uL (4.0-11.0) Red Blood Count 3.67 x10^6/uL (3.50-5.40) Hemoglobin 10.8 g/dL (12.0-15.5) Hematocrit 33.9 % (36.0-47.0) Mean Corpuscular Volume 93 fL (79-100) Mean Corpuscular Hemoglobin 29 pg (25-35) Mean Corpuscular Hemoglobin Concent 32 g/dL (31-37) Red Cell Distribution Width 14.9 % (11.5-14.5) Platelet Count 195 x10^3/uL (140-400) Sodium Level 136 mmol/L (136-145) Potassium Level 4.4 mmol/L (3.5-5.1) Chloride Level 98 mmol/L (98-107) Carbon Dioxide Level 29 mmol/L (21-32) Anion Gap 9 (6-14) Blood Urea Nitrogen 49 mg/dL (7-20) Creatinine 8.7 mg/dL (0.6-1.0) Estimated GFR (Cockcroft-Gault) 5.5 Glucose Level 471 mg/dL (70-99) Calcium Level 10.0 mg/dL (8.5-10.1) Micro Micro Microbiology 04/20/17 Blood Culture - Preliminary, Resulted NO GROWTH AFTER 2 DAYS Review of Systems Constitutional: yes: chills, weakness, alert, oriented Ears/Nose/Throat: Yes: no symptom reported Eyes: Yes: no symptom reported Pulmonary: Yes no symptom reported Cardiovascular: Yes no symptom reported Gastrointestional: Yes: no symptom reported Genitourinary: Yes: no symptom reported Musculoskeletal: Yes: no symptom reported Skin: Yes no symptom reported Psychiatric/Neurological: Yes: no symptom reported Endocrine: Yes: no symptom reported Physical Exam General Appearance: no apparent distress Skin: warm Respiratory: bilateral CTA Heart: S1S2 Abdomen: soft, bowel sounds present Genitourinary: bladder flat Extremities: pulses present Neurology: alert, oriented, follow commands Musculoskeletal: Osteoarthritis Assessment Assessment IMP ESRD WITH RIGHT THIGH GRAFT-PATENT ANEMIA G NEG BACTEREMIA HTN PLAN ANTIBIOTICS HD TODAY UF TO UMAIR GLOVER MD Apr 22, 2017 11:55
[2017-04-22] MEDS: CEFEPIME HCL 1 GM in IV NORMAL SALINE 50ML 50 ML IV SCH (15:30)
[2017-04-22] MEDS: amLODIPine BESYLATE 10 MG TABLET PO SCH (15:31)
[2017-04-22] MEDS: CINACALCET HCL 30 MG TABLET PO SCH (15:32)
[2017-04-22] MEDS: FOLIC/VIT B COMP W-C (RENAL) TABLET. PO SCH (15:32)
[2017-04-22] MEDS: HYDROcodone/APAP 5/325MG 1 TAB TABLET PO PRN (15:33)
--- NOTE | 2017-04-22 16:26 | RAD ---
CT neck and chest. Indication: Chronic cough Technique: CT neck and chest without IV contrast with multiplanar reformats. Comparison: CT chest from 2007. Findings: CT neck: Limited study due to lack of IV contrast. Bilateral cavernous carotid artery calcifications. Noncontrast appearance of the visualized brain parenchyma is within normal limits. The nasopharynx, oropharynx are within normal limits. No bulky cervical adenopathy. The submandibular glands, parotid glands and thyroid are within normal limits. Punctate calcification seen within right thyroid lobe. Moderate atherosclerotic disease noted at the bilateral carotid bulb. Prevertebral soft tissue within normal limits. Trachea is patent. Enlarged 1.9 x 1.3 cm left supraclavicular lymph node. Kyphotic deformity of the cervical spine noted with significant loss of vertebral body heights in the mid cervical spine with advanced degenerative changes. Facet joints are in normal anatomic alignment. Right TMJ osteoarthritis. There is opacification of the left sphenoid sinus. Impression: Limited study due to lack of IV contrast. 1. Enlarged left supraclavicular lymph node, nonspecific. 2. Severe degenerative disc disease in the mid and lower cervical spine. 3. Left sphenoid sinus disease. CT chest: Findings: Limited study due to lack of IV contrast. There is suggestion of chest is a occlusion with numerous chest wall collaterals. Heart is mildly enlarged in size. Trace pericardial effusion. Diffuse coronary artery disease. Small right pleural effusion. No axillary, mediastinal or hilar adenopathy. There is motion artifact noted within the lung bases limiting optimal evaluation. No focal consolidation or pulmonary lesion. Numerous cystic lesions are seen in the liver suggesting polycystic disease. Annular glands are not visualized. Diffuse metastatic disease of the thoracic and visualized abdominal aorta. No suspicious bony lesions. Diffuse sclerotic appearance of the bones suggest renal osteodystrophy. Impression: Limited study due to lack of IV contrast. 1. Small right pleural effusion. 2. 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 3. Polycystic disease of the liver. 4. 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 PQRS Compliance Statement: One or more of the following individualized dose reduction techniques were utilized for this examination: 1. Automated exposure control 2. Adjustment of the mA and/or kV according to patient size 3. Use of iterative reconstruction technique
[2017-04-22] MEDS: GENTAMICIN SULFATE IV SCH (16:59)
[2017-04-22] MEDS: NORMAL SALINE IV SCH (16:59)
[2017-04-22 19:55] VITALS: BP 109/55
[2017-04-22] MEDS: BUDESONIDE 0.5 MG/2 ML NEBU. NEB SCH (20:11)
[2017-04-22] MEDS: MONTELUKAST SODIUM 10 MG TABLET. PO SCH (21:00)
[2017-04-22] MEDS: METOPROLOL TART IMMED RELEASE 25 MG TABLET. PO SCH (21:30)
[2017-04-22 23:40] VITALS: BP 112/60
[2017-04-23 03:55] VITALS: BP 126/55
[2017-04-23] MEDS: HEPARIN PF for SUB-Q USE 5,000 UNIT/0.5 ML VIAL. SQ SCH ×3 (06:00→20:27)
[2017-04-23 07:00] VITALS: BP 170/74
[2017-04-23] MEDS: IPRATRPIUM/ALBUTEROL 0.5/2.5MG 3 ML NEBU. NEB SCH ×4 (07:31→19:40)
[2017-04-23] MEDS: BUDESONIDE 0.5 MG/2 ML NEBU. NEB SCH ×2 (07:32→19:40)
--- NOTE | 2017-04-23 07:56 | PDOC ---
Infectious Disease Note Subjective Subjective Main complaint remains cough and trouble clearing secretions No dizziness/tinnitus Enjoying the chicken broth ROS ROS GEN: Denies fevers, chills, sweats HEENT: Denies blurred vision, sore throat CV: Denies chest pain RESP: Denies shortness of air, cough GI: Denies n/v/d NEURO: Denies confusion, dizziness MSK: Denies weakness, joint pain/swelling Vital Sign Vital Signs Vital Signs Date Time Temp Pulse Resp B/P (MAP) Pulse Ox O2 Delivery O2 Flow Rate FiO2 04/23/17 07:34 100 Room Air 04/23/17 03:55 98.0 91 16 126/55 (78) 98.0 Physical Exam PHYSICAL EXAM GENERAL: NAD, Alert, in bed and sat up easily. looks better HEENT: PERRL, OC/OP - clear. clear secretions NECK: Supple, no JVD, no LN LUNGS: Clear HEART: S1S2, no gallop, no murmur ABD: Soft, NT, no organomegaly, no rebound EXT: No edema, no cyanosis ARCHIVES SPECIALIST: Alert, oriented x 3, no focal neurologic deficit SKIN: No rash IV: Right thigh is clean Labs Micro 04/17 Klebsiella pneumoniae Recovered from aerobic and anaerobic bottles. ANTIMICROBIAL SUSCEPTIBILITY Final Comment S = Susceptible; I = Intermediate; R = Resistant P = Positive; N = Negative MICS are expressed in micrograms per mL Antibiotic RSLT#1 RSLT#2 RSLT#3 RSLT#4 Amoxicillin/Clavulanic Acid S Ampicillin R Cefepime S Ceftriaxone S Cefuroxime I Cephalothin I Ciprofloxacin S Ertapenem S Gentamicin S Imipenem S Levofloxacin S Nitrofurantoin R Piperacillin R Tetracycline R Tobramycin S Trimethoprim/Sulfa S Objective Assessment Fever - resolved Klebsiella sepsis - POA 04/17. No pain etc associated with AV graft. repeat cults 04/20 neg. ECHO TTE no gross veg Tachyarrhythmias Leukocytosis - resolved Ongoing cough ? reflux CKD on HD mild CHF Plan Plan of Care Continue Gent and Cefepime while admitted Would like to d/c on Gent with HD with last dose 05/02. Also d/c home on po Cipro 500 mg po daily (to be given after HD) last dose 05/01 , if ok with Cardiology Repeat blood cults F/u labs and cults Await further Cardiology w/u RANDY BYRD MD Apr 23, 2017 07:56
[2017-04-23] MEDS: PANTOPRAZOLE 40 MG TABLET.DR. PO SCH (09:09)
[2017-04-23] MEDS: amLODIPine BESYLATE 10 MG TABLET PO SCH (09:10)
[2017-04-23] MEDS: CALCIUM ACETATE 667 MG CAPSULE PO SCH ×3 (09:10→17:43)
[2017-04-23] MEDS: CINACALCET HCL 30 MG TABLET PO SCH (09:10)
[2017-04-23] MEDS: METOPROLOL TART IMMED RELEASE 25 MG TABLET. PO SCH (09:11)
--- NOTE | 2017-04-23 09:50 | PDOC ---
PROGRESS NOTES Subjective Subjective dry cough Objective Objective Vital Signs Date Time Temp Pulse Resp B/P (MAP) Pulse Ox O2 Delivery O2 Flow Rate FiO2 04/23/17 09:11 90 170/74 04/23/17 07:34 100 Room Air 04/23/17 07:00 98.5 18 98.5 Physical Exam Abdomen: Soft, No tenderness Heart: Regular rate (SR with PACs), Normal S1, Normal S2, Other (S4, 3/6 systolic murmur to apical and CHANCE border) Extremities: No cyanosis, No edema General: Alert, Oriented X3, Cooperative, No acute distress HEENT: Atraumatic, Mucous membr. moist/pink Lungs: Other (diminisehd bases) MUSCULOSKELETAL: No joint tenderness, Osteoarthritic changes both hands Neuro: Sensation intact Psych/Mental Status: Mental status NL, Mood NL Skin: No breakdown, No significant lesion Diagnosis Problem List Problems Medical Problems: (1) Fever Status: Acute Assessment Assessment Problems Medical Problems: (1) Fever Status: Acute FINAL IMPRESSION: *chronic cough * tachycardia hr 140 range resolved 1. Bacteremia secondary to gram-negative positive blood c/s.Klebsiella 2. Febrile illness secondary to bacteremia. 3. End-stage renal disease, on hemodialysis Thursday, Thursday and Thursday. 4. Hypertension. PLAN:ch SVC occlusion with collateral ct chest small effusion rt pleura Pulmonary consult appreciated. echo -mod aortic stenosis no vegetations ekg/heart monitor for tachycardia cardiology consult apprecited noted blood c/s and sensitivity genta+cefepime. appreciate ID consult, spoke with ID today dialysis tomorrow needs SNU ,needs 10 more days of antibiotics Problems: Plan Plan of Care Problems Medical Problems: (1) Fever Status: Acute Comment Review of Relevant I have reviewed the following items penny (where applicable) has been applied. Labs Microbiology 04/20/17 Blood Culture - Preliminary, Resulted NO GROWTH AFTER 3 DAYS Medications Current Medications Budesonide (Pulmicort) 0.5 mg RTBID NEB Last administered on 04/23/17 07:32; Start 04/22/17 at 20:00 Fluticasone Propionate (Flonase) 2 spray DAILY NS ; Start 04/22/17 at 11:00 Metoprolol Tartrate (Lopressor) 25 mg 1X ONCE PO Last administered on 15:32; Start 04/22/17 at 11:00; Stop 04/22/17 at 11:01; Status DC Metoprolol Tartrate (Lopressor) 50 mg BID PO Last administered on 04/23/17t 09: 11; Start 04/22/17 at 21:00 Montelukast Sodium (Singulair) 10 mg QHS PO ; Start 04/22/17 at 21:00 Vitals/I & O Vital Sign - Last 24 Hours 04/22/17 04/22/17 04/22/17 04/22/17 11:04 15:31 15:32 15:33 Pulse 94 94 Resp 16 B/P (MAP) 146/68 146/68 Pulse Ox 98 O2 Delivery Room Air Room Air 04/22/17 04/22/17 04/22/17 04/22/17 16:17 16:33 19:55 20:00 Temp 98.3 98.3 Pulse 88 Resp 16 16 B/P (MAP) 109/55 (73) Pulse Ox 98 95 O2 Delivery Room Air Room Air Room Air Room Air 04/22/17 04/22/17 04/22/17 04/22/17 20:11 20:13 21:30 23:40 Temp 98.0 98.0 Pulse 88 87 Resp 16 B/P (MAP) 109/55 112/60 (77) Pulse Ox 97 97 94 O2 Delivery Room Air Room Air Room Air 04/23/17 04/23/17 04/23/17 04/23/17 03:55 07:00 07:32 07:34 Temp 98.0 98.5 98.0 98.5 Pulse 91 90 Resp 16 18 B/P (MAP) 126/55 (78) 170/74 (106) Pulse Ox 94 99 100 100 O2 Delivery Room Air Room Air Room Air Room Air 04/23/17 04/23/17 09:10 09:11 Pulse 90 90 B/P (MAP) 170/74 170/74 MARIA TERESA HUIZAR MD Apr 23, 2017 09:50
[2017-04-23] MEDS ORDERED: PROMETH/CODEINE 6.25/10MG 5 ML SYRUP. PO PRN (10:00)
[2017-04-23] MEDS: FLUTICASONE 50MCG/NASAL SPRAY 16GM BOTTLE. NS SCH ×2 (10:45→12:37)
[2017-04-23] MEDS: FOLIC/VIT B COMP W-C (RENAL) TABLET. PO SCH (10:45)
--- NOTE | 2017-04-23 10:45 | PDOC ---
CARDIO Progress Notes Date and Time Date of Service 04/23/2017 Time of Evaluation 1015 Subjective Subjective: No Chest Pain, No shortness of breath, No Palpitations, Other ( feels anxious, regarding bills) Vitals Vitals Vital Signs Date Time Temp Pulse Resp B/P (MAP) Pulse Ox O2 Delivery O2 Flow Rate FiO2 04/23/17 09:11 90 170/74 04/23/17 07:34 100 Room Air 04/23/17 07:00 98.5 18 98.5 Weight Weight [ ] Microbiology Micro Microbiology 04/20/17 Blood Culture - Preliminary, Resulted NO GROWTH AFTER 3 DAYS Review of Systems Constitutional: yes: chills, weakness, alert, oriented Ears/Nose/Throat: Yes: no symptom reported Eyes: Yes: no symptom reported Pulmonary: Yes no symptom reported Cardiovascular: Yes no symptom reported Gastrointestional: Yes: no symptom reported Genitourinary: Yes: no symptom reported Musculoskeletal: Yes: no symptom reported Skin: Yes no symptom reported Psychiatric/Neurological: Yes: no symptom reported Endocrine: Yes: no symptom reported Physical Exam HEENT: Neck Supple W Full Motion Chest: Symmetric LUNGS: Other (diminished bases) Heart: S1S2, RRR (SR with PACs) Abdomen: Soft N/T Extremities: No Calf Tenderness Neurology: alert, oriented, follow commands Assessment Assessment 1. Tachyarrhythmia: Better, SR with PACs. HR 80-90s. No significant atrial ectopies. 2. Sepsis/fever/bacteremia with n/v and diarrhea: improved 3. ESRD 4. HTN: labile overnight. Will likely need coverage at hs. 5. Valvular insufficiency: mode and mild MR. 6. CAD?, no prior LHC nor recent MPI 7. Chronic diastolic CHF: EF 45-50% with mild global hypokinesis Recommendations 1. Continue with metoprolol but will change to toprol XL 100 mg. Treat extracardiac conditions 2. Will plan for outpt event monitor for 4 weeks if pt agrees 3, Continue with BP control. ECASA. 4. Fluid off loading per HD 5. Will reevaluate for need of stress test as an outpt for further risk stratification unless there has been recent stress test. 6. Follow up in office in office a week pot event monitor. ROWENA RUST APRN Apr 23, 2017 10:45
[2017-04-23] MEDS: BENZOCAINE/MENTHOL LOZENGE. PO PRN ×2 (10:48→17:43)
[2017-04-23] MEDS: ASPIRIN ENTERIC COATED 81 MG TABLET.DR. PO SCH (10:57)
[2017-04-23] MEDS: guaiFENesin DM 200MG/20MG 10 ML SYRUP PO PRN (10:58)
[2017-04-23 11:00] VITALS: BP 132/62
--- NOTE | 2017-04-23 11:40 | PDOC ---
Renal-Progress Notes Subjective Notes Notes NO CHANGE History of Present Illness Hx of present illness STABLE Vitals Vitals Vital Signs Date Time Temp Pulse Resp B/P (MAP) Pulse Ox O2 Delivery O2 Flow Rate FiO2 04/23/17 09:11 90 170/74 04/23/17 07:34 100 Room Air 04/23/17 07:00 98.5 18 98.5 Weight Weight [ ] Micro Micro Microbiology 04/20/17 Blood Culture - Preliminary, Resulted NO GROWTH AFTER 3 DAYS Review of Systems Constitutional: yes: chills, weakness, alert, oriented Ears/Nose/Throat: Yes: no symptom reported Eyes: Yes: no symptom reported Pulmonary: Yes no symptom reported Cardiovascular: Yes no symptom reported Gastrointestional: Yes: no symptom reported Genitourinary: Yes: no symptom reported Musculoskeletal: Yes: no symptom reported Skin: Yes no symptom reported Psychiatric/Neurological: Yes: no symptom reported Endocrine: Yes: no symptom reported Physical Exam General Appearance: no apparent distress Skin: warm Respiratory: bilateral CTA Heart: S1S2 Abdomen: soft, bowel sounds present Genitourinary: bladder flat Extremities: pulses present Neurology: alert, oriented, follow commands Musculoskeletal: Osteoarthritis Assessment Assessment IMP ESRD WITH RIGHT THIGH GRAFT-PATENT ANEMIA G NEG BACTEREMIA HTN PLAN ANTIBIOTICS HD TOMORROW UMAIR MAC MD Apr 23, 2017 11:40
[2017-04-23] MEDS ORDERED: METOPROLOL SUCC 24HR ER 100 MG TAB.ER.24H. PO ONE (12:15)
--- NOTE | 2017-04-23 13:06 | PDOC ---
PULMONARY PROGRESS NOTES Subjective LESS COUGH Vitals Vital Signs Date Time Temp Pulse Resp B/P (MAP) Pulse Ox O2 Delivery O2 Flow Rate FiO2 04/23/17 11:46 97 Room Air 04/23/17 11:00 97.3 82 20 132/62 (85) 97.3 General: Alert, No acute distress Lungs: Clear Cardiovascular: S1 Abdomen: Soft Extremities: Other (trace edema) Labs Laboratory Tests Test 04/22/17 06:40 White Blood Count 7.1 x10^3/uL (4.0-11.0) Red Blood Count 3.67 x10^6/uL (3.50-5.40) Hemoglobin 10.8 g/dL (12.0-15.5) Hematocrit 33.9 % (36.0-47.0) Mean Corpuscular Volume 93 fL (79-100) Mean Corpuscular Hemoglobin 29 pg (25-35) Mean Corpuscular Hemoglobin Concent 32 g/dL (31-37) Red Cell Distribution Width 14.9 % (11.5-14.5) Platelet Count 195 x10^3/uL (140-400) Sodium Level 136 mmol/L (136-145) Potassium Level 4.4 mmol/L (3.5-5.1) Chloride Level 98 mmol/L (98-107) Carbon Dioxide Level 29 mmol/L (21-32) Anion Gap 9 (6-14) Blood Urea Nitrogen 49 mg/dL (7-20) Creatinine 8.7 mg/dL (0.6-1.0) Estimated GFR (Cockcroft-Gault) 5.5 Glucose Level 471 mg/dL (70-99) Calcium Level 10.0 mg/dL (8.5-10.1) Medications Active Scripts Medications Dose Route/Sig Max Daily Dose Days Date Category Calcium Acetate 667 Mg Tablet 1,334 Mg PO TIDWMEALS 04/17/17 Reported Metoprolol Tartrate 25 Mg Tablet 25 Mg PO BID 01/16/16 Reported Sensipar (Cinacalcet Hcl) 30 Mg Tablet 30 Mg PO 01/16/16 Reported Amlodipine Besylate 10 Mg Tablet 10 Mg PO DAILY 01/16/16 Reported Nephro-Albino Rx Tablet (Vit B Cmplx 3/Fa/Vit C/Biotin) 1 Each Tablet 1 Each PO DAILY 6/29/16 Reported Impression . 1. Chronic persistent cough for last 5 years with some progression in the last few months. The cough can be multifactorial. I suspect a combination of allergic rhinitis and possible reactive airway disease. There is no evidence of any congestive heart failure on the chest x-ray and she is not on any ANNE inhibitors. There are no constitutional symptoms of malignancy. 2. Recent Klebsiella bacteremia. 3. End-stage renal disease, on hemodialysis. 4. No significant history of tobacco use. Plan . 1. Continue present nebulizer treatment. 2. Pulmicort. At home, Flovent inhaler will be placed at the time of discharge. 3. Singulair. 4. Flonase nasal spray. 5. At this point, I do not see a need for CT chest; however, if the cough does not improve with current medications then we will consider noncontrast CT chest. 6. Continue antibiotics per Infectious Disease for bacteremia. 7. Continue hemodialysis. 8. We will follow along with you. SIN CORADO MD Apr 23, 2017 13:06
[2017-04-23] MEDS: CEFEPIME HCL 1 GM in IV NORMAL SALINE 50ML 50 ML IV SCH (13:30)
[2017-04-23] MEDS: BENZONATATE 100 MG CAPSULE. PO SCH ×2 (15:03→20:27)
[2017-04-23 15:28] VITALS: BP 106/44
[2017-04-23] MEDS: HYDROcodone/APAP 5/325MG 1 TAB TABLET PO PRN (17:43)
[2017-04-23 19:47] VITALS: BP 135/66
[2017-04-23] MEDS: MONTELUKAST SODIUM 10 MG TABLET. PO SCH (20:26)
[2017-04-23 23:56] VITALS: BP 143/72
[2017-04-24 03:24] VITALS: BP 138/69
[2017-04-24] MEDS: HYDROcodone/APAP 5/325MG 1 TAB TABLET PO PRN ×2 (05:11→13:27)
[2017-04-24] MEDS: HEPARIN PF for SUB-Q USE 5,000 UNIT/0.5 ML VIAL. SQ SCH ×2 (05:20→21:00)
[2017-04-24 05:51] LABS: HEMATOCRIT 33.9 % (36.0-47.0); HEMOGLOBIN 10.7 g/dL (12.0-15.5); RED BLOOD COUNT 3.63 x10^6/uL (3.50-5.40); RED CELL DISTRIBUTION WIDTH 14.5 % (11.5-14.5); WHITE BLOOD COUNT 5.1 x10^3/uL (4.0-11.0)
[2017-04-24 06:18] LABS: CALCIUM 9.6 mg/dL (8.5-10.1); CREATININE 6.9 mg/dL (0.6-1.0); GFR 7.2; POTASSIUM 4.3 mmol/L (3.5-5.1)
[2017-04-24] MEDS ORDERED: INSULIN ASPART 300 UNITS/3 ML INSULN.PEN SQ ONE (06:45)
[2017-04-24] MEDS: BUDESONIDE 0.5 MG/2 ML NEBU. NEB SCH ×2 (07:08→20:19)
[2017-04-24] MEDS: IPRATRPIUM/ALBUTEROL 0.5/2.5MG 3 ML NEBU. NEB SCH ×4 (07:08→20:19)
[2017-04-24] MEDS ORDERED: IV NORMAL SALINE 1000ML BAG 1,000 ML IV PRN (07:19)
[2017-04-24] MEDS ORDERED: INSULIN ASPART 300 UNITS/3 ML INSULN.PEN SQ SCH (07:30)
[2017-04-24] MEDS ORDERED: DIALYSIS PATIENT. MC PRN (07:30)
[2017-04-24] MEDS: PANTOPRAZOLE 40 MG TABLET.DR. PO SCH (07:30)
--- NOTE | 2017-04-24 07:39 | PDOC ---
Infectious Disease Note Subjective Subjective C/o increased swelling of right breast and some discomfort Less cough and trouble clearing secretions No dizziness/tinnitus Enjoying the chicken broth ROS ROS GEN: Denies fevers, chills, sweats HEENT: Denies blurred vision, sore throat CV: Denies chest pain RESP: Denies shortness of air, cough GI: Denies n/v/d NEURO: Denies confusion, dizziness MSK: Denies weakness, joint pain/swelling Vital Sign Vital Signs Vital Signs Date Time Temp Pulse Resp B/P (MAP) Pulse Ox O2 Delivery O2 Flow Rate FiO2 04/24/17 07:08 99 Room Air 04/24/17 03:24 98.0 102 20 138/69 (92) 98.0 Physical Exam PHYSICAL EXAM GENERAL: NAD, Alert, in bed and sat up easily. looks well HEENT: PERRL, OC/OP - clear. clear secretions NECK: Supple, no JVD, no LN LUNGS: Clear Right breast mild to mod larger than left. No gross erythema/warmth but ? mild tenderness HEART: S1S2, no gallop, no murmur ABD: Soft, NT, no organomegaly, no rebound EXT: No edema, no cyanosis PULP SCREEN OPERATOR: Alert, oriented x 3, no focal neurologic deficit SKIN: No rash IV: Right thigh is clean. Right hand Labs Lab Laboratory Tests Test 04/24/17 05:00 White Blood Count 5.1 x10^3/uL (4.0-11.0) Red Blood Count 3.63 x10^6/uL (3.50-5.40) Hemoglobin 10.7 g/dL (12.0-15.5) Hematocrit 33.9 % (36.0-47.0) Mean Corpuscular Volume 93 fL (79-100) Mean Corpuscular Hemoglobin 30 pg (25-35) Mean Corpuscular Hemoglobin Concent 32 g/dL (31-37) Red Cell Distribution Width 14.5 % (11.5-14.5) Platelet Count 215 x10^3/uL (140-400) Sodium Level 136 mmol/L (136-145) Potassium Level 4.3 mmol/L (3.5-5.1) Chloride Level 97 mmol/L (98-107) Carbon Dioxide Level 34 mmol/L (21-32) Anion Gap 5 (6-14) Blood Urea Nitrogen 36 mg/dL (7-20) Creatinine 6.9 mg/dL (0.6-1.0) Estimated GFR (Cockcroft-Gault) 7.2 Glucose Level 537 mg/dL (70-99) Calcium Level 9.6 mg/dL (8.5-10.1) Micro 04/17 Klebsiella pneumoniae Recovered from aerobic and anaerobic bottles. ANTIMICROBIAL SUSCEPTIBILITY Final Comment S = Susceptible; I = Intermediate; R = Resistant P = Positive; N = Negative MICS are expressed in micrograms per mL Antibiotic RSLT#1 RSLT#2 RSLT#3 RSLT#4 Amoxicillin/Clavulanic Acid S Ampicillin R Cefepime S Ceftriaxone S Cefuroxime I Cephalothin I Ciprofloxacin S Ertapenem S Gentamicin S Imipenem S Levofloxacin S Nitrofurantoin R Piperacillin R Tetracycline R Tobramycin S Trimethoprim/Sulfa S Objective Assessment Fever - resolved Hyperglycemia Right breast swelling and pain Klebsiella sepsis - POA 04/17. No pain etc associated with AV graft. repeat cults 04/20 neg. ECHO TTE no gross veg Tachyarrhythmias Leukocytosis - resolved Ongoing cough ? reflux CKD on HD mild CHF Plan Plan of Care Check breast U/S F/u labs Continue Gent and Cefepime while admitted. May need additional abx based on breast findings and or progression given elevated Glucose Would like to d/c on Gent with HD with last dose 05/02. Also d/c home on po Cipro 500 mg po daily (to be given after HD) last dose 05/01 , if ok with Cardiology Repeat blood cults F/u labs and cults RANDY BYRD MD Apr 24, 2017 07:39
[2017-04-24] MEDS: CINACALCET HCL 30 MG TABLET PO SCH (09:00)
--- NOTE | 2017-04-24 09:42 | PDOC ---
PROGRESS NOTES Subjective Subjective rt breast swelling ,new and sugars [id number] range Objective Objective Vital Signs Date Time Temp Pulse Resp B/P (MAP) Pulse Ox O2 Delivery O2 Flow Rate FiO2 04/24/17 07:08 99 Room Air 04/24/17 03:24 98.0 102 20 138/69 (92) 98.0 Physical Exam Abdomen: Soft, No tenderness Heart: Regular rate (SR with PACs), Normal S1, Normal S2, Other (S4, 3/6 systolic murmur to apical and CHANCE border) Extremities: No cyanosis, No edema General: Alert, Oriented X3, Cooperative, No acute distress HEENT: Atraumatic, Mucous membr. moist/pink Lungs: Other (diminisehd bases) MUSCULOSKELETAL: No joint tenderness, Osteoarthritic changes both hands Neuro: Sensation intact Psych/Mental Status: Mental status NL, Mood NL Skin: No breakdown, No significant lesion COMMENT rt breast enlarged and edematous ,nipple inverted rt Diagnosis Problem List Problems Medical Problems: (1) Fever Status: Acute Assessment Assessment Problems Medical Problems: (1) Fever Status: Acute FINAL IMPRESSION: *high [id number] range *rt breast swelling *chronic cough * tachycardia hr 140 range 1. Bacteremia secondary to gram-negative positive blood c/s.Klebsiella 2. Febrile illness secondary to bacteremia. 3. End-stage renal disease, on hemodialysis Thursday, Thursday and Thursday. 4. Hypertension. PLAN: rt breast sonogram. surgical consult. ch SVC occlusion with collateral ct chest small effusion rt pleura Pulmonary consult appreciated. echo -mod aortic stenosis no vegetations ekg/heart monitor for tachycardia cardiology consult appreciated noted blood c/s and sensitivity genta+cefepime. appreciate ID consult, spoke with ID today dialysis today needs SNU ,needs 10 more days of antibiotics ?may be thursday Problems: Plan Plan of Care Problems Medical Problems: (1) Fever Status: Acute Comment Review of Relevant I have reviewed the following items penny (where applicable) has been applied. Labs Laboratory Tests Test 04/24/17 05:00 04/24/17 09:00 White Blood Count 5.1 x10^3/uL (4.0-11.0) Red Blood Count 3.63 x10^6/uL (3.50-5.40) Hemoglobin 10.7 g/dL (12.0-15.5) Hematocrit 33.9 % (36.0-47.0) Mean Corpuscular Volume 93 fL (79-100) Mean Corpuscular Hemoglobin 30 pg (25-35) Mean Corpuscular Hemoglobin Concent 32 g/dL (31-37) Red Cell Distribution Width 14.5 % (11.5-14.5) Platelet Count 215 x10^3/uL (140-400) Sodium Level 136 mmol/L (136-145) Potassium Level 4.3 mmol/L (3.5-5.1) Chloride Level 97 mmol/L (98-107) Carbon Dioxide Level 34 mmol/L (21-32) Anion Gap 5 (6-14) Blood Urea Nitrogen 36 mg/dL (7-20) Creatinine 6.9 mg/dL (0.6-1.0) Estimated GFR (Cockcroft-Gault) 7.2 Glucose Level 537 mg/dL (70-99) Calcium Level 9.6 mg/dL (8.5-10.1) Glucose (Fingerstick) 220 mg/dL (70-99) Microbiology 04/20/17 Blood Culture - Preliminary, Resulted NO GROWTH AFTER 3 DAYS Medications Current Medications Aspirin (Ecotrin) 81 mg [id number] PO ; Start 04/23/17 at 11:00 Benzonatate (Tessalon Perle) 100 mg [id number] PO Last administered on 04/23/17 20 :27; Start 04/23/17 at 14:00 Info (PHARMACY MONITORING -- do not chart) 1 each PRN DAILY PRN MC SEE COMMENTS ; Start 04/24/17 at 07:30; Status UNV Insulin Aspart (NovoLOG) BIDBFRMEAL SQ ; Start 04/24/17 at 07:30 Insulin Aspart (NovoLOG) 10 units 1X ONCE SQ Last administered on 04/24/17 07 :33; Start 04/24/17 at 06:45; Stop 04/24/17 at 06:46; Status DC Metoprolol Succinate (Toprol Xl) 100 mg 1X ONCE PO ; Start 04/23/17 at 12:15; Stop 04/23/17 at 12:18; Status DC Metoprolol Succinate (Toprol Xl) 100 mg DAILY PO ; Start 04/24/17 at 09:00 Promethazine HCl/ Codeine (Phenergan With Codeine) 5 ml PRN Q6HRS PRN PO COUGH ; Start 04/23/17 at 10:00 Sodium Chloride 1,000 ml @ 1,000 mls/hr Q1H PRN IV hypotension; Start 04/24/17 at 07:19; Stop 04/24/17 at 18:00 Throat Lozenges (Cepacol Sore Throat Lozenge) 1 ismael PRN Q2HRS PRN PO SORE THROAT Last administered on 04/23/17t 17:43; Start 04/23/17 at 10:00 Vitals/I & O Vital Sign - Last 24 Hours 04/23/17 04/23/17 04/23/17 04/23/17 11:00 11:46 12:15 15:12 Temp 97.3 97.3 Pulse 82 82 Resp 20 B/P (MAP) 132/62 (85) 132/62 Pulse Ox 100 97 O2 Delivery Room Air Room Air Room Air 04/23/17 04/23/17 04/23/17 04/23/17 15:28 17:43 19:30 19:44 Temp 98.0 98.0 Pulse 92 Resp 20 18 B/P (MAP) 106/44 (64) Pulse Ox 93 99 O2 Delivery Room Air Room Air Room Air Room Air 04/23/17 04/23/17 04/24/17 04/24/17 19:47 23:56 03:24 07:00 Temp 98.5 97.9 98.0 98.5 97.9 98.0 Pulse 92 102 102 Resp 20 20 B/P (MAP) 135/66 (89) 143/72 (95) 138/69 (92) Pulse Ox 94 100 96 O2 Delivery Room Air Room Air Room Air Room Air 04/24/17 07:08 Pulse Ox 99 O2 Delivery Room Air MARIA TERESA HUIZAR MD Apr 24, 2017 09:42
[2017-04-24] MEDS ORDERED: DEXTROSE 50% 25 GM / 50ML DISP.SYRIN. IV PRN (10:00)
--- NOTE | 2017-04-24 11:41 | PDOC ---
Renal-Progress Notes Subjective Notes Notes RIGHT BREAST SWELLING History of Present Illness Hx of present illness STABLE Vitals Vitals Vital Signs Date Time Temp Pulse Resp B/P (MAP) Pulse Ox O2 Delivery O2 Flow Rate FiO2 04/24/17 11:00 Room Air 04/24/17 07:08 99 04/24/17 03:24 98.0 102 20 138/69 (92) 98.0 Weight Weight [ ] Labs Labs Laboratory Tests Test 04/24/17 05:00 04/24/17 09:00 04/24/17 10:57 White Blood Count 5.1 x10^3/uL (4.0-11.0) Red Blood Count 3.63 x10^6/uL (3.50-5.40) Hemoglobin 10.7 g/dL (12.0-15.5) Hematocrit 33.9 % (36.0-47.0) Mean Corpuscular Volume 93 fL (79-100) Mean Corpuscular Hemoglobin 30 pg (25-35) Mean Corpuscular Hemoglobin Concent 32 g/dL (31-37) Red Cell Distribution Width 14.5 % (11.5-14.5) Platelet Count 215 x10^3/uL (140-400) Sodium Level 136 mmol/L (136-145) Potassium Level 4.3 mmol/L (3.5-5.1) Chloride Level 97 mmol/L (98-107) Carbon Dioxide Level 34 mmol/L (21-32) Anion Gap 5 (6-14) Blood Urea Nitrogen 36 mg/dL (7-20) Creatinine 6.9 mg/dL (0.6-1.0) Estimated GFR (Cockcroft-Gault) 7.2 Glucose Level 537 mg/dL (70-99) Calcium Level 9.6 mg/dL (8.5-10.1) Glucose (Fingerstick) 220 mg/dL (70-99) 117 mg/dL (70-99) Micro Micro Microbiology 04/20/17 Blood Culture - Preliminary, Resulted NO GROWTH AFTER 4 DAYS Review of Systems Constitutional: yes: chills, weakness, alert, oriented Ears/Nose/Throat: Yes: no symptom reported Eyes: Yes: no symptom reported Pulmonary: Yes no symptom reported Cardiovascular: Yes no symptom reported Gastrointestional: Yes: no symptom reported Genitourinary: Yes: no symptom reported Musculoskeletal: Yes: no symptom reported Skin: Yes no symptom reported Psychiatric/Neurological: Yes: no symptom reported Endocrine: Yes: no symptom reported Physical Exam General Appearance: no apparent distress Skin: warm Respiratory: bilateral CTA Heart: S1S2 Abdomen: soft, bowel sounds present Genitourinary: bladder flat Extremities: pulses present Neurology: alert, oriented, follow commands Musculoskeletal: Osteoarthritis Assessment Assessment IMP ESRD WITH RIGHT THIGH GRAFT-PATENT ANEMIA G NEG BACTEREMIA HTN NEW DX OF DM PLAN ANTIBIOTICS HD TODAY UF TO DW BREAST SONO INSULIN D/W ATTENDING UMAIR MAC MD Apr 24, 2017 11:41
[2017-04-24] MEDS: CEFEPIME HCL 1 GM in IV NORMAL SALINE 50ML 50 ML IV SCH (11:52)
[2017-04-24] MEDS: INSULIN ASPART 300 UNITS/3 ML INSULN.PEN SQ SCH ×2 (12:00→17:42)
[2017-04-24] MEDS: FLUTICASONE 50MCG/NASAL SPRAY 16GM BOTTLE. NS SCH (13:15)
[2017-04-24] MEDS: amLODIPine BESYLATE 10 MG TABLET PO SCH (13:16)
[2017-04-24] MEDS: METOPROLOL SUCC 24HR ER 100 MG TAB.ER.24H. PO SCH (13:17)
[2017-04-24] MEDS: CALCIUM ACETATE 667 MG CAPSULE PO SCH ×3 (13:18→17:00)
[2017-04-24] MEDS: ASPIRIN ENTERIC COATED 81 MG TABLET.DR. PO SCH (13:18)
[2017-04-24] MEDS: BENZOCAINE/MENTHOL LOZENGE. PO PRN (13:19)
[2017-04-24] MEDS: BENZONATATE 100 MG CAPSULE. PO SCH ×3 (13:20→21:06)
[2017-04-24] MEDS: FOLIC/VIT B COMP W-C (RENAL) TABLET. PO SCH (13:24)
--- NOTE | 2017-04-24 14:13 | RAD ---
Right breast ultrasound, 04/24/2017: History: Breast swelling There is moderate generalized streaky edema in the soft tissues of the right breast. No discrete breast mass is seen. Reportedly an outside mammogram from December was negative. This edema may be on a systemic basis and related to patient positioning, judging from the appearance on the 04/22/2017 CT study where there was evidence of anasarca and prominent vascular structures. Mastitis or inflammatory breast cancer cannot excluded. Clinical correlation is suggested. If symptoms persist, repeat mammography may be indicated.
[2017-04-24 15:00] VITALS: BP 166/71
[2017-04-24] MEDS: GENTAMICIN PER PHARMACY. MC PRN (15:57)
[2017-04-24] MEDS: NORMAL SALINE IV SCH (16:20)
[2017-04-24] MEDS: GENTAMICIN SULFATE IV SCH (16:20)
--- NOTE | 2017-04-24 16:57 | PDOC2 ---
CONSULT Date of Consult Date of Consult DATE: 04/24/17 TIME: 16:51 Reason for Consult Reason for Consult: Right breast swelling Referring Physician Referring Physician: Umair Identification/Chief Complaint Chief Complaint right breast swelling Problems: Source Source: Chart review, Patient History of Present Illness Reason for Visit: 67 yo F with multiple medical problems with c/o right breast swelling this AM, denies previous problems with this. She noted very swollen, hard breast with nipple inversion. She underwent dialysis, however, and her swelling has resolved Past Medical History Cardiovascular: CAD (?), HTN, Hyperlipidemia GI: Constipation Heme/Onc: Anemia NOS Psych: Anxiety Musculoskeletal: Osteoarthritis Renal/: Chronic renal failure Endocrine: Hyperparathyroidism Past Surgical History Past Surgical History: Other (MELINA shunt with revision) Family History Family History: Coronary Artery Disease (mother) Social History No ALCOHOL: none Drugs: None Lives: with Family Current Problem List Problem List Problems Medical Problems: (1) Fever Status: Acute Current Medications Current Medications Current Medications Vancomycin HCl (Vanco Per Pharmacy) 1 each PRN DAILY PRN MC SEE COMMENTS Last administered on 04/19/17 07:47; Start 04/17/17 at 14:45; Stop 04/19/17 at 09:53 ; Status DC Vancomycin HCl 1.5 gm/Sodium Chloride 500 ml @ 250 mls/hr 1X ONCE IV Last administered on 04/17/17 15:18; Start 04/17/17 at 15:00; Stop 04/17/17 at 16:59 ; Status DC Fentanyl Citrate (Fentanyl 2ml Vial) 25 mcg PRN Q15MIN PRN IV PAIN GREATER THAN 3/10 Last administered on 04/17/17 16:35; Start 04/17/17 at 15:45; Stop at 15:44; Status DC Ondansetron HCl (Zofran) 4 mg PRN Q8HRS PRN IV NAUSEA/VOMITING; Start 04/17/17 at 16:30; Stop 04/18/17 at 16:29; Status DC Fentanyl Citrate (Fentanyl 2ml Vial) 25 mcg PRN Q2HR PRN IV PAIN; Start at 16:30; Stop 04/18/17 at 16:29; Status DC Vancomycin HCl 1 each 1X ONCE MC ; Start 04/19/17 at 06:00; Stop 04/19/17 at 06 :01; Status DC Amlodipine Besylate (Norvasc) 10 mg DAILY PO Last administered on 04/24/17 13: 16; Start 04/18/17 at 09:00 Cinacalcet (Sensipar) 30 mg DAILY PO Last administered on 04/23/17 09:10; Start 04/18/17 at 09:00 Metoprolol Tartrate (Lopressor) 25 mg BID PO Last administered on 04/21/17 21: 39; Start 04/17/17 at 21:00; Stop 04/22/17 at 10:56; Status DC Calcium Acetate (Phoslo) 1,334 mg TIDWMEALS PO Last administered on 04/24/17 13:18; Start 04/18/17 at 08:00 Vitamin B Complex/ Vitamin C (Mady-Albino) 1 tab DAILY PO Last administered on 13:24; Start 04/18/17 at 09:00 Vancomycin HCl (Vanco Per Pharmacy) 1 each PRN DAILY PRN MC SEE COMMENTS; Start 04/17/17 at 18:30; Status UNV Gentamicin Sulfate 1 each PRN DAILY PRN MC SEE COMMENTS Last administered on 15:57; Start 04/17/17 at 18:30 Acetaminophen/ Hydrocodone Bitart (Lortab 5/325) 1 tab PRN Q6HRS PRN PO PAIN Last administered on 04/24/17 13:27; Start 04/17/17 at 18:30 Acetaminophen (Tylenol) 650 mg PRN Q8HRS PRN PO temp Last administered on 16:04; Start 04/17/17 at 18:30 Gentamicin Sulfate 150 mg/ Sodium Chloride 103.75 ml @ 207.5 mls/hr 1X ONCE IV Last administered on 04/17/17 20:23; Start 04/17/17 at 19:30; Stop at 19:59; Status DC Gentamicin Sulfate 1 each 1X ONCE MC Last administered on 04/20/17 05:48; Start 04/20/17 at 06:00; Stop 04/20/17 at 06:01; Status DC Cefepime HCl 1 gm/ Sodium Chloride 50 ml @ 100 mls/hr DAILY IV Last administered on 04/24/17 11:52; Start 04/18/17 at 08:30 Enoxaparin Sodium (Lovenox 40mg Syringe) 30 mg Q24H SQ ; Start 04/18/17 at 11:45 ; Status UNV Heparin Sodium (Porcine) (Heparin Sq) 5,000 unit Q8HRS SQ Last administered on 04/23/17 15:02; Start 04/18/17 at 14:00; Stop 04/24/17 at 09:46; Status DC Darbepoetin Ryan (Aranesp) 60 mcg [id number] SQ Last administered on 04/18/17 21 :17; Start 04/18/17 at 21:00 Vancomycin HCl 500 mg/Sodium Chloride 100 ml @ 100 mls/hr QMWF IV ; Start 04/20 at 16:00; Stop 04/20/17 at 16:00; Status DC Sodium Chloride 1,000 ml @ 1,000 mls/hr Q1H PRN IV hypotension; Start 04/20/17 at 09:39; Stop 04/20/17 at 15:38; Status DC Info (PHARMACY MONITORING -- do not chart) 1 each PRN DAILY PRN MC SEE COMMENTS ; Start 04/20/17 at 09:45 Gentamicin Sulfate 60 mg/ Sodium Chloride 101.5 ml @ 203 mls/hr QMWF IV Last administered on 04/24/17 16:20; Start 04/20/17 at 17:00 Albuterol/ Ipratropium (Duoneb) 3 ml RTQID NEB Last administered on 04/24/17 15:20; Start 04/21/17 at 08:00 Albuterol Sulfate (Ventolin Neb Soln) 2.5 mg PRN Q2HRS PRN NEB SHORTNESS OF BREATH; Start 04/20/17 at 23:30 Guaifenesin (Robitussin Dm) 10 ml PRN QID PRN PO SEVERE COUGH Last administered on 04/21/17 23:22; Start 04/20/17 at 23:30 Guaifenesin (Robitussin Dm) 5 ml PRN QID PRN PO MODERATE COUGH; Start 04/20/17 at 23:30 Pantoprazole Sodium (Protonix) 40 mg DAILYAC PO Last administered on 04/23/17 09:09; Start 04/21/17 at 11:30 Ondansetron HCl (Zofran) 4 mg PRN Q6HRS PRN IV NAUSEA/VOMITING Last administered on 04/23/17 14:31; Start 04/21/17 at 18:00 Sodium Chloride 1,000 ml @ 1,000 mls/hr Q1H PRN IV hypotension; Start 04/22/17 at 07:08; Stop 04/22/17 at 13:07; Status DC Sodium Chloride 1,000 ml @ 400 mls/hr Q2H30M PRN IV PATENCY; Start 04/22/17 at 07:08; Stop 04/22/17 at 19:07; Status DC Info (PHARMACY MONITORING -- do not chart) 1 each PRN DAILY PRN MC SEE COMMENTS ; Start 04/22/17 at 07:15; Status UNV Metoprolol Tartrate (Lopressor) 50 mg BID PO Last administered on 04/23/17 09: 11; Start 04/22/17 at 21:00; Stop 04/23/17 at 10:31; Status DC Metoprolol Tartrate (Lopressor) 25 mg 1X ONCE PO Last administered on 15:32; Start 04/22/17 at 11:00; Stop 04/22/17 at 11:01; Status DC Montelukast Sodium (Singulair) 10 mg QHS PO Last administered on 04/23/17 20: 26; Start 04/22/17 at 21:00 Fluticasone Propionate (Flonase) 2 spray DAILY NS Last administered on 13:15; Start 04/22/17 at 11:00 Budesonide (Pulmicort) 0.5 mg RTBID NEB Last administered on 04/24/17 07:08; Start 04/22/17 at 20:00 Benzonatate (Tessalon Perle) 100 mg [id number] PO Last administered on 04/24/17 13 :20; Start 04/23/17 at 14:00 Promethazine HCl/ Codeine (Phenergan With Codeine) 5 ml PRN Q6HRS PRN PO COUGH ; Start 04/23/17 at 10:00 Throat Lozenges (Cepacol Sore Throat Lozenge) 1 ismael PRN Q2HRS PRN PO SORE THROAT Last administered on 04/24/17 13:19; Start 04/23/17 at 10:00 Metoprolol Succinate (Toprol Xl) 100 mg DAILY PO Last administered on 13:17; Start 04/24/17 at 09:00 Aspirin (Ecotrin) 81 mg [id number] PO Last administered on 04/24/17 13:18; Start 04/23/17 at 11:00 Metoprolol Succinate (Toprol Xl) 100 mg 1X ONCE PO ; Start 04/23/17 at 12:15; Stop 04/23/17 at 12:18; Status DC Insulin Aspart (NovoLOG) BIDBFRMEAL SQ ; Start 04/24/17 at 07:30; Stop at 09:54; Status DC Insulin Aspart (NovoLOG) 10 units 1X ONCE SQ Last administered on 04/24/17 07 :33; Start 04/24/17 at 06:45; Stop 04/24/17 at 06:46; Status DC Sodium Chloride 1,000 ml @ 1,000 mls/hr Q1H PRN IV hypotension; Start 04/24/17 at 07:19; Stop 04/24/17 at 18:00 Info (PHARMACY MONITORING -- do not chart) 1 each PRN DAILY PRN MC SEE COMMENTS ; Start 04/24/17 at 07:30; Status UNV Heparin Sodium (Porcine) (Heparin Sq) 5,000 unit BID SQ ; Start 04/24/17 at 21: 00 Insulin Aspart (NovoLOG) 0-7 UNITS TIDWMEALS SQ ; Start 04/24/17 at 12:00 Dextrose (Dextrose 50%-Water Syringe) 12.5 gm PRN Q15MIN PRN IV SEE COMMENTS; Start 04/24/17 at 10:00 Active Scripts Active Reported Calcium Acetate 667 Mg Tablet 1,334 Mg PO TIDWMEALS Metoprolol Tartrate 25 Mg Tablet 25 Mg PO BID Sensipar (Cinacalcet Hcl) 30 Mg Tablet 30 Mg PO Amlodipine Besylate 10 Mg Tablet 10 Mg PO DAILY Nephro-Albino Rx Tablet (Vit B Cmplx 3/Fa/Vit C/Biotin) 1 Each Tablet 1 Each PO DAILY Allergies Allergies: Coded Allergies: No Known Medication Allergies (Verified Allergy, Unknown, 04/22/17) diphenhydramine (Verified Adverse Reaction, Mild, Anxiety, 01/17/16) ROS Breast: Nipple changes, Other (right breast swelling) Physical Exam General: Alert, Oriented X3, Cooperative HEENT: Atraumatic, EOMI Lungs: Normal air movement, Other (bilateral breast without obvious masses or skin changes) Abdomen: Soft, No tenderness Extremities: No clubbing, No cyanosis Skin: No rashes, No breakdown Neuro: Normal speech, Sensation intact Psych/Mental Status: Mental status NL, Mood NL Vitals VITALS Vital Signs Date Time Temp Pulse Resp B/P (MAP) Pulse Ox O2 Delivery O2 Flow Rate FiO2 04/24/17 15:20 99 Room Air 04/24/17 15:00 97.5 97 18 166/71 (102) 97.5 Labs Labs Laboratory Tests Test 04/24/17 05:00 04/24/17 09:00 04/24/17 10:57 White Blood Count 5.1 x10^3/uL (4.0-11.0) Red Blood Count 3.63 x10^6/uL (3.50-5.40) Hemoglobin 10.7 g/dL (12.0-15.5) Hematocrit 33.9 % (36.0-47.0) Mean Corpuscular Volume 93 fL (79-100) Mean Corpuscular Hemoglobin 30 pg (25-35) Mean Corpuscular Hemoglobin Concent 32 g/dL (31-37) Red Cell Distribution Width 14.5 % (11.5-14.5) Platelet Count 215 x10^3/uL (140-400) Sodium Level 136 mmol/L (136-145) Potassium Level 4.3 mmol/L (3.5-5.1) Chloride Level 97 mmol/L (98-107) Carbon Dioxide Level 34 mmol/L (21-32) Anion Gap 5 (6-14) Blood Urea Nitrogen 36 mg/dL (7-20) Creatinine 6.9 mg/dL (0.6-1.0) Estimated GFR (Cockcroft-Gault) 7.2 Glucose Level 537 mg/dL (70-99) Calcium Level 9.6 mg/dL (8.5-10.1) Glucose (Fingerstick) 220 mg/dL (70-99) 117 mg/dL (70-99) Laboratory Tests Test 04/24/17 05:00 04/24/17 09:00 04/24/17 10:57 White Blood Count 5.1 x10^3/uL (4.0-11.0) Red Blood Count 3.63 x10^6/uL (3.50-5.40) Hemoglobin 10.7 g/dL (12.0-15.5) Hematocrit 33.9 % (36.0-47.0) Mean Corpuscular Volume 93 fL (79-100) Mean Corpuscular Hemoglobin 30 pg (25-35) Mean Corpuscular Hemoglobin Concent 32 g/dL (31-37) Red Cell Distribution Width 14.5 % (11.5-14.5) Platelet Count 215 x10^3/uL (140-400) Sodium Level 136 mmol/L (136-145) Potassium Level 4.3 mmol/L (3.5-5.1) Chloride Level 97 mmol/L (98-107) Carbon Dioxide Level 34 mmol/L (21-32) Anion Gap 5 (6-14) Blood Urea Nitrogen 36 mg/dL (7-20) Creatinine 6.9 mg/dL (0.6-1.0) Estimated GFR (Cockcroft-Gault) 7.2 Glucose Level 537 mg/dL (70-99) Calcium Level 9.6 mg/dL (8.5-10.1) Glucose (Fingerstick) 220 mg/dL (70-99) 117 mg/dL (70-99) Images Images diffuse subcutaneous edema, prominent chest vessels, no masses on CT or breast imaging including recent mammograms Assessment/Plan Assessment/Plan right breast swelling appears to be related to fluid overload secondary to renal failure improved after dialysis recommend support for breast tissue and routine imaging no surgical plans will sign off, but please call for questions. Thanks for consult! KELLY NERI MD Apr 24, 2017 16:57
[2017-04-24 19:13] VITALS: BP 159/75
[2017-04-24] MEDS: MONTELUKAST SODIUM 10 MG TABLET. PO SCH (21:06)
[2017-04-24 23:00] VITALS: BP 175/96
[2017-04-25 03:50] VITALS: BP 165/75
[2017-04-25] MEDS: HYDROcodone/APAP 5/325MG 1 TAB TABLET PO PRN (04:49)
[2017-04-25 06:54] LABS: CHOLESTEROL/HDL RATIO 2.8
[2017-04-25 07:00] VITALS: BP 175/80
[2017-04-25] MEDS: IPRATRPIUM/ALBUTEROL 0.5/2.5MG 3 ML NEBU. NEB SCH ×4 (07:36→20:33)
[2017-04-25] MEDS: BUDESONIDE 0.5 MG/2 ML NEBU. NEB SCH ×2 (07:36→20:34)
[2017-04-25] MEDS: CALCIUM ACETATE 667 MG CAPSULE PO SCH ×3 (08:45→18:03)
[2017-04-25] MEDS: FOLIC/VIT B COMP W-C (RENAL) TABLET. PO SCH (08:45)
[2017-04-25] MEDS: CINACALCET HCL 30 MG TABLET PO SCH (08:45)
[2017-04-25] MEDS: ASPIRIN ENTERIC COATED 81 MG TABLET.DR. PO SCH (08:45)
[2017-04-25] MEDS: PANTOPRAZOLE 40 MG TABLET.DR. PO SCH (08:45)
[2017-04-25] MEDS: BENZONATATE 100 MG CAPSULE. PO SCH ×3 (08:46→20:53)
[2017-04-25] MEDS: amLODIPine BESYLATE 10 MG TABLET PO SCH (08:46)
[2017-04-25] MEDS: METOPROLOL SUCC 24HR ER 100 MG TAB.ER.24H. PO SCH (08:46)
[2017-04-25] MEDS: FLUTICASONE 50MCG/NASAL SPRAY 16GM BOTTLE. NS SCH (08:46)
[2017-04-25] MEDS: HEPARIN PF for SUB-Q USE 5,000 UNIT/0.5 ML VIAL. SQ SCH ×2 (09:00→21:00)
[2017-04-25] MEDS: INSULIN ASPART 300 UNITS/3 ML INSULN.PEN SQ SCH ×3 (09:09→18:07)
[2017-04-25] MEDS: CEFEPIME HCL 1 GM in IV NORMAL SALINE 50ML 50 ML IV SCH (09:26)
--- NOTE | 2017-04-25 10:36 | PDOC ---
Infectious Disease Note Subjective Subjective Hoping to go home soon Right breast feeling swollen still, denies worsening Denies pain Last mammogram in December ROS ROS GEN: Denies fevers, chills, sweats CV: Denies chest pain RESP: Denies shortness of air, cough GI: Denies n/v/d Vital Sign Vital Signs Vital Signs Date Time Temp Pulse Resp B/P (MAP) Pulse Ox O2 Delivery O2 Flow Rate FiO2 04/25/17 09:16 Room Air 04/25/17 08:46 92 175/80 04/25/17 07:37 98 04/25/17 07:00 97.9 17 97.9 Physical Exam PHYSICAL EXAM GENERAL: Propped up in bed, NAD LUNGS: Clear HEART: S1 and S2 BREASTS: Right breast bigger compared to the left; nontender, no redness or warmth ABD: Soft, NT EXT: No edema, no cyanosis [employer]: Alert, oriented x 3, no focal neurologic deficit SKIN: No rash Labs Lab Laboratory Tests Test 04/24/17 10:57 04/24/17 11:46 04/24/17 17:23 04/24/17 20:42 Glucose (Fingerstick) 117 mg/dL (70-99) 133 mg/dL (70-99) 301 mg/dL (70-99) 325 mg/dL (70-99) Test 04/25/17 03:45 04/25/17 07:56 Triglycerides Level 63 mg/dL (0-150) Cholesterol Level 158 mg/dL (0-200) LDL Cholesterol, Calculated 88 mg/dL (0-100) VLDL Cholesterol, Calculated 13 mg/dL (0-40) Non-HDL Cholesterol Calculated 101 mg/dL (0-129) HDL Cholesterol 57 mg/dL (40-60) Cholesterol/HDL Ratio 2.8 Thyroid Stimulating Hormone (TSH) 1.799 uIU/mL (0.358-3.74) Glucose (Fingerstick) 310 mg/dL (70-99) Right breast ultrasound, 04/24/2017: History: Breast swelling There is moderate generalized streaky edema in the soft tissues of the right breast. No discrete breast mass is seen. Reportedly an outside mammogram from December was negative. This edema may be on a systemic basis and related to patient positioning, judging from the appearance on the 04/22/2017 CT study where there was evidence of anasarca and prominent vascular structures. Mastitis or inflammatory breast cancer cannot excluded. Clinical correlation is suggested. If symptoms persist, repeat mammography may be indicated. Objective Assessment Fever - resolved Hyperglycemia Right breast swelling and pain. Mammogram in December reportedly normal. Edema w/o discrete mass on US Klebsiella sepsis - POA 04/17. No pain etc associated with AV graft. repeat cults 04/20 neg. ECHO TTE no gross veg Tachyarrhythmias Leukocytosis - resolved Ongoing cough ? reflux CKD on HD mild CHF Plan Plan of Care Continue Gent and Cefepime while admitted. Would like to d/c on Gent with HD with last dose 05/02. Also d/c home on po Cipro 500 mg po daily (to be given after HD) last dose 05/01 , if ok with Cardiology. D/w RN Attending Co-Sign The patient was seen and interviewed as well as examined at the bedside. The chart was reviewed. The case was discussed. Agree with the plan of care. EREN DE DIOS APRN Apr 25, 2017 10:36 MARYLOU RIOS MD Apr 25, 2017 12:31
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
[2017-04-25 11:00] VITALS: BP 139/66
--- NOTE | 2017-04-25 13:26 | PDOC ---
SUBJECTIVE ROS ESRD c/o breast swelling CVS: no Orthopnea, no CP RESP: no SOB, no TINSLEY GI: no Nausea, no Vomiting : no Dysuria, no Urgency OBJECTIVE Vital Signs Vital Signs Date Time Temp Pulse Resp B/P (MAP) Pulse Ox O2 Delivery O2 Flow Rate FiO2 04/25/17 11:22 98 Room Air 04/25/17 11:00 98.0 78 19 139/66 (90) 98.0 PHYSICAL EXAM Physical Exam GEN: Awake, Oriented x 3, In no distress EYES: Vision Unchanged, Conjunctiva Normal EN: No EN Drainage, Mucous Membranes moist NECK: + JVD, + JVP, Supple, no Thyromegaly CVS: S1S2, + Murmur, No Gallop, No Rub,no Edema RESP: no Rales, no Rhonchi,no Acc. Muscle Use GI: BS + ve, NO Bruit, Non Tender, Non Distended : no CVA tenderness, no Suprapubic Tenderness DIAGNOSIS/ASSESSMENT Assessment & Plan ESRD: Current fluid and E-lyte status does not necessitate emergent need for dialysis. Will re-evaluate for dialysis in the am and continue on MWF schedule. ANEMIA; Aranap as ordered, Transfuse with next HD as needed HTN: Current BP meds as reviewed. See orders for changes. BONE & MINERAL: follow phos and alter binder regimen Discussed Plan of Care with family at bedside Problems: COMMENT/RELEVANT DATA Meds Current Medications Medications (Trade) Dose Ordered Sig/Noris Start Time Stop Time Status Last Admin Dose Admin Acetaminophen (Tylenol) 650 mg PRN Q8HRS PRN 04/17/17 18:30 04/19/17 16:04 650 MG Acetaminophen/ Hydrocodone Bitart (Lortab 5/325) 1 tab PRN Q6HRS PRN 04/17/17 18:30 04/25/17 04:49 1 TAB Albuterol Sulfate (Ventolin Neb Soln) 2.5 mg PRN Q2HRS PRN 04/20/17 23:30 Albuterol/ Ipratropium (Duoneb) 3 ml RTQID 04/21/17 08:00 04/25/17 11:21 3 ML Amlodipine Besylate (Norvasc) 10 mg DAILY 04/18/17 09:00 04/25/17 08:46 10 MG Aspirin (Ecotrin) 81 mg DAILYWBKFT 04/23/17 11:00 04/25/17 08:45 81 MG Benzonatate (Tessalon Perle) 100 mg [id number] 04/23/17 14:00 04/25/17 08:46 100 MG Budesonide (Pulmicort) 0.5 mg RTBID 04/22/17 20:00 04/25/17 07:36 0.5 MG Calcium Acetate (Phoslo) 1,334 mg TIDWMEALS 04/18/17 08:00 04/25/17 12:18 1,334 MG Cefepime HCl 1 gm/ Sodium Chloride 50 ml @ 100 mls/hr DAILY 04/18/17 08:30 04/25/17 09:26 100 MLS/HR Cinacalcet (Sensipar) 30 mg DAILY 04/18/17 09:00 04/25/17 08:45 30 MG Darbepoetin Ryan (Aranesp) 60 mcg WEEKLYHS 04/18/17 21:00 04/18/17 21:17 60 MCG Dextrose (Dextrose 50%-Water Syringe) 12.5 gm PRN Q15MIN PRN 04/24/17 10:00 Enoxaparin Sodium (Lovenox 40mg Syringe) 30 mg Q24H 04/18/17 11:45 UNV Fentanyl Citrate (Fentanyl 2ml Vial) 25 mcg PRN Q2HR PRN 04/17/17 16:30 04/18/17 16:29 DC Fluticasone Propionate (Flonase) 2 spray DAILY 04/22/17 11:00 04/25/17 08:46 2 SPRAY Gentamicin Sulfate 150 mg/ Sodium Chloride 103.75 ml @ 207.5 mls/hr 1X ONCE 04/17/17 19:30 04/17/17 19:59 DC 04/17/17 20:23 207.5 MLS/HR Gentamicin Sulfate 60 mg/ Sodium Chloride 101.5 ml @ 203 mls/hr QMWF 04/20/17 17:00 04/24/17 16:20 203 MLS/HR Gentamicin Sulfate 1 each 1X ONCE 04/20/17 06:00 04/20/17 06:01 DC 04/20/17 05:48 1 EACH Guaifenesin (Robitussin Dm) 5 ml PRN QID PRN 04/20/17 23:30 Heparin Sodium (Porcine) (Heparin Sq) 5,000 unit BID 04/24/17 21:00 04/25/17 09:00 5,000 UNIT Info (PHARMACY MONITORING -- do not chart) 1 each PRN DAILY PRN 04/24/17 07:30 UNV Insulin Aspart (NovoLOG) 0-7 UNITS TIDWMEALS 04/24/17 12:00 04/25/17 12:20 7 UNITS Metoprolol Succinate (Toprol Xl) 100 mg 1X ONCE 04/23/17 12:15 04/23/17 12:18 DC Metoprolol Tartrate (Lopressor) 25 mg 1X ONCE 04/22/17 11:00 04/22/17 11:01 DC 04/22/17 15:32 25 MG Montelukast Sodium (Singulair) 10 mg QHS 04/22/17 21:00 04/24/17 21:06 10 MG Ondansetron HCl (Zofran) 4 mg PRN Q6HRS PRN 04/21/17 18:00 04/23/17 14:31 4 MG Pantoprazole Sodium (Protonix) 40 mg DAILYAC 04/21/17 11:30 04/25/17 08:45 40 MG Promethazine HCl/ Codeine (Phenergan With Codeine) 5 ml PRN Q6HRS PRN 04/23/17 10:00 Sodium Chloride 1,000 ml @ 1,000 mls/hr Q1H PRN 04/24/17 07:19 04/24/17 18:00 DC Throat Lozenges (Cepacol Sore Throat Lozenge) 1 shawn PRN Q2HRS PRN 04/23/17 10:00 04/24/17 13:19 1 SHAWN Vancomycin HCl (Vanco Per Pharmacy) 1 each PRN DAILY PRN 04/17/17 18:30 UNV Vancomycin HCl 1.5 gm/Sodium Chloride 500 ml @ 250 mls/hr 1X ONCE 04/17/17 15:00 04/17/17 16:59 DC 04/17/17 15:18 250 MLS/HR Vancomycin HCl 500 mg/Sodium Chloride 100 ml @ 100 mls/hr QMWF 04/20/17 16:00 04/20/17 16:00 DC Vitamin B Complex/ Vitamin C (Mady-Albino) 1 tab DAILY 04/18/17 09:00 04/25/17 08:45 1 TAB Lab Laboratory Tests Test 04/24/17 17:23 04/24/17 20:42 04/25/17 03:45 04/25/17 07:56 Glucose (Fingerstick) 301 mg/dL (70-99) 325 mg/dL (70-99) 310 mg/dL (70-99) Triglycerides Level 63 mg/dL (0-150) Cholesterol Level 158 mg/dL (0-200) LDL Cholesterol, Calculated 88 mg/dL (0-100) VLDL Cholesterol, Calculated 13 mg/dL (0-40) Non-HDL Cholesterol Calculated 101 mg/dL (0-129) HDL Cholesterol 57 mg/dL (40-60) Cholesterol/HDL Ratio 2.8 Thyroid Stimulating Hormone (TSH) 1.799 uIU/mL (0.358-3.74) Test 04/25/17 11:21 Glucose (Fingerstick) 302 mg/dL (70-99) MARY RIOS MD Apr 25, 2017 13:26
[2017-04-25 15:00] VITALS: BP 148/78
--- NOTE | 2017-04-25 16:44 | PDOC ---
PULMONARY PROGRESS NOTES Subjective LESS COUGH Vitals Vital Signs Date Time Temp Pulse Resp B/P (MAP) Pulse Ox O2 Delivery O2 Flow Rate FiO2 04/25/17 15:10 98 Room Air 04/25/17 15:00 98.5 81 19 148/78 (101) 98.5 General: Alert, No acute distress Lungs: Clear Cardiovascular: S1 Abdomen: Soft Extremities: Other (trace edema) Labs Laboratory Tests Test 04/24/17 05:00 04/24/17 09:00 04/24/17 10:57 04/24/17 11:46 White Blood Count 5.1 x10^3/uL (4.0-11.0) Red Blood Count 3.63 x10^6/uL (3.50-5.40) Hemoglobin 10.7 g/dL (12.0-15.5) Hematocrit 33.9 % (36.0-47.0) Mean Corpuscular Volume 93 fL (79-100) Mean Corpuscular Hemoglobin 30 pg (25-35) Mean Corpuscular Hemoglobin Concent 32 g/dL (31-37) Red Cell Distribution Width 14.5 % (11.5-14.5) Platelet Count 215 x10^3/uL (140-400) Sodium Level 136 mmol/L (136-145) Potassium Level 4.3 mmol/L (3.5-5.1) Chloride Level 97 mmol/L (98-107) Carbon Dioxide Level 34 mmol/L (21-32) Anion Gap 5 (6-14) Blood Urea Nitrogen 36 mg/dL (7-20) Creatinine 6.9 mg/dL (0.6-1.0) Estimated GFR (Cockcroft-Gault) 7.2 Glucose Level 537 mg/dL (70-99) Calcium Level 9.6 mg/dL (8.5-10.1) Glucose (Fingerstick) 220 mg/dL (70-99) 117 mg/dL (70-99) 133 mg/dL (70-99) Test 04/24/17 17:23 04/24/17 20:42 04/25/17 03:45 04/25/17 07:56 Glucose (Fingerstick) 301 mg/dL (70-99) 325 mg/dL (70-99) 310 mg/dL (70-99) Triglycerides Level 63 mg/dL (0-150) Cholesterol Level 158 mg/dL (0-200) LDL Cholesterol, Calculated 88 mg/dL (0-100) VLDL Cholesterol, Calculated 13 mg/dL (0-40) Non-HDL Cholesterol Calculated 101 mg/dL (0-129) HDL Cholesterol 57 mg/dL (40-60) Cholesterol/HDL Ratio 2.8 Thyroid Stimulating Hormone (TSH) 1.799 uIU/mL (0.358-3.74) Test 04/25/17 11:21 Glucose (Fingerstick) 302 mg/dL (70-99) Laboratory Tests Test 04/24/17 17:23 04/24/17 20:42 04/25/17 03:45 04/25/17 07:56 Glucose (Fingerstick) 301 mg/dL (70-99) 325 mg/dL (70-99) 310 mg/dL (70-99) Triglycerides Level 63 mg/dL (0-150) Cholesterol Level 158 mg/dL (0-200) LDL Cholesterol, Calculated 88 mg/dL (0-100) VLDL Cholesterol, Calculated 13 mg/dL (0-40) Non-HDL Cholesterol Calculated 101 mg/dL (0-129) HDL Cholesterol 57 mg/dL (40-60) Cholesterol/HDL Ratio 2.8 Thyroid Stimulating Hormone (TSH) 1.799 uIU/mL (0.358-3.74) Test 04/25/17 11:21 Glucose (Fingerstick) 302 mg/dL (70-99) Medications Active Scripts Medications Dose Route/Sig Max Daily Dose Days Date Category Calcium Acetate 667 Mg Tablet 1,334 Mg PO TIDWMEALS 04/17/17 Reported Metoprolol Tartrate 25 Mg Tablet 25 Mg PO BID 01/16/16 Reported Sensipar (Cinacalcet Hcl) 30 Mg Tablet 30 Mg PO 01/16/16 Reported Amlodipine Besylate 10 Mg Tablet 10 Mg PO DAILY 01/16/16 Reported Nephro-Albino Rx Tablet (Vit B Cmplx 3/Fa/Vit C/Biotin) 1 Each Tablet 1 Each PO DAILY 01/16/16 Reported Impression . 1. Chronic persistent cough for last 5 years with some progression in the last few months. The cough can be multifactorial. I suspect a combination of allergic rhinitis and possible reactive airway disease. There is no evidence of any congestive heart failure on the chest x-ray and she is not on any ANNE inhibitors. There are no constitutional symptoms of malignancy. 2. Recent Klebsiella bacteremia. 3. End-stage renal disease, on hemodialysis. 4. No significant history of tobacco use. Plan . REVIEWED [facility] CONTINUE THE SAME 1. Continue present nebulizer treatment. 2. Pulmicort. At home, Flovent inhaler will be placed at the time of discharge. 3. Singulair. 4. Flonase nasal spray. CT CHEST Impression: Limited study due to lack of IV contrast. 1. Small right pleural effusion. 2. 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 3. Polycystic disease of the liver. 4. 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 HARJEET SWANSON MD Apr 25, 2017 16:44
[2017-04-25 19:59] VITALS: BP 148/72
[2017-04-25] MEDS: MONTELUKAST SODIUM 10 MG TABLET. PO SCH (20:53)
[2017-04-25] MEDS: DARBEPOETIN ALFA 60 MCG/0.3 ML DISP.SYRIN. SQ SCH (21:00)
[2017-04-25 23:45] VITALS: BP 152/67
[2017-04-26 03:30] VITALS: BP 166/79
[2017-04-26 07:00] VITALS: BP 158/78
[2017-04-26] MEDS: BUDESONIDE 0.5 MG/2 ML NEBU. NEB SCH ×2 (07:17→19:17)
[2017-04-26] MEDS: IPRATRPIUM/ALBUTEROL 0.5/2.5MG 3 ML NEBU. NEB SCH ×4 (07:17→19:17)
[2017-04-26] MEDS: GENTAMICIN PER PHARMACY. MC PRN (08:58)
--- NOTE | 2017-04-26 08:58 | PDOC ---
Infectious Disease Note Subjective Subjective Hoping to go home soon Right breast feeling little less swollen and heavy Denies pain ROS ROS GEN: Denies fevers, chills, sweats RESP: Denies shortness of air, cough GI: Denies n/v/d NEURO: Denies confusion, dizziness Vital Sign Vital Signs Vital Signs Date Time Temp Pulse Resp B/P (MAP) Pulse Ox O2 Delivery O2 Flow Rate FiO2 04/26/17 07:18 98 Room Air 04/26/17 03:30 97.5 90 22 166/79 (108) 97.5 Physical Exam PHYSICAL EXAM GENERAL: Propped up in bed, NAD LUNGS: Clear HEART: S1 and S2 BREASTS: Right breast bigger compared to the left; nontender, no redness or warmth ABD: Soft, NT EXT: No edema, no cyanosis WOOD FINISHER: Alert, oriented x 3, no focal neurologic deficit SKIN: No rash PIV Labs Lab Laboratory Tests Test 04/25/17 11:21 04/25/17 16:52 04/25/17 21:12 04/26/17 07:30 Glucose (Fingerstick) 302 mg/dL (70-99) 152 mg/dL (70-99) 208 mg/dL (70-99) 264 mg/dL (70-99) Objective Assessment Fever - resolved Hyperglycemia Right breast swelling and pain. Mammogram in December reportedly normal. Edema w/o discrete mass on US Klebsiella sepsis - POA 04/17. No pain etc associated with AV graft. repeat cults 04/20 neg. ECHO TTE no gross veg Tachyarrhythmias Leukocytosis - resolved Ongoing cough ? reflux CKD on HD mild CHF Plan Plan of Care Continue Gent and Cefepime while admitted. I spoke with Dr. Arias, cardiology regarding tachyarrhythmias. Patient cleared to use cipro at discharge. Thus, when discharged home will continue Gent with HD with last dose 05/02 and start Cipro 500 mg po daily (to be given after HD) last dose 05/01. Attending Co-Sign The patient was seen and interviewed as well as examined at the bedside. The chart was reviewed. The case was discussed. Agree with the plan of care. EREN DE DIOS APRN Apr 26, 2017 08:58 MARYLOU RIOS MD Apr 26, 2017 12:45
[2017-04-26] MEDS: PANTOPRAZOLE 40 MG TABLET.DR. PO SCH (08:59)
[2017-04-26] MEDS: BENZONATATE 100 MG CAPSULE. PO SCH ×3 (08:59→21:42)
[2017-04-26] MEDS: ASPIRIN ENTERIC COATED 81 MG TABLET.DR. PO SCH (08:59)
[2017-04-26] MEDS: FOLIC/VIT B COMP W-C (RENAL) TABLET. PO SCH (08:59)
[2017-04-26] MEDS: FLUTICASONE 50MCG/NASAL SPRAY 16GM BOTTLE. NS SCH (09:00)
[2017-04-26] MEDS: CINACALCET HCL 30 MG TABLET PO SCH (09:00)
[2017-04-26] MEDS: CALCIUM ACETATE 667 MG CAPSULE PO SCH ×3 (09:00→17:21)
[2017-04-26] MEDS: CEFEPIME HCL 1 GM in IV NORMAL SALINE 50ML 50 ML IV SCH (09:01)
[2017-04-26] MEDS: METOPROLOL SUCC 24HR ER 100 MG TAB.ER.24H. PO SCH (09:05)
[2017-04-26] MEDS: amLODIPine BESYLATE 10 MG TABLET PO SCH (09:06)
[2017-04-26] MEDS: HEPARIN PF for SUB-Q USE 5,000 UNIT/0.5 ML VIAL. SQ SCH ×2 (09:10→21:00)
[2017-04-26] MEDS: INSULIN ASPART 300 UNITS/3 ML INSULN.PEN SQ SCH ×3 (09:11→17:27)
--- NOTE | 2017-04-26 10:36 | PDOC ---
IM PROGRESS NOTES- Subjective Subjective No c/o pain or dyspnea.Patient is forgetful and asking the same questions repeatedly. She is refusing medications including insulin.She believes that she does not have Diabetes. Objective Vitals Vital Signs Date Time Temp Pulse Resp B/P (MAP) Pulse Ox O2 Delivery O2 Flow Rate FiO2 04/26/17 09:06 90 158/78 04/26/17 08:00 Room Air 04/26/17 07:18 98 04/26/17 07:00 19 04/26/17 03:30 97.5 97.5 Physical Exam Physical Exam General appearance - alert,well appearing, and in no distress and oriented to person, place, and time Mental Status - alert,forgetful Has swelling of both breasts,veins prominent upper chest. Chest - clear to auscultation, no wheezes, rales or rhonchi, symmetric air entry Heart - S1 and S2 normal Abdomen - soft, nontender, nondistended, no masses or organomegaly Neurological - alert and oriented Musculoskeletal - no muscular tenderness noted Extremities - no pedal edema Skin - warm and dry Labs Laboratory Tests Test 04/24/17 10:57 04/24/17 11:46 04/24/17 17:23 04/24/17 20:42 Glucose (Fingerstick) 117 mg/dL (70-99) 133 mg/dL (70-99) 301 mg/dL (70-99) 325 mg/dL (70-99) Test 04/25/17 03:45 04/25/17 07:56 04/25/17 11:21 04/25/17 16:52 Hemoglobin A1c 7.7 % (4.8-5.6) Triglycerides Level 63 mg/dL (0-150) Cholesterol Level 158 mg/dL (0-200) LDL Cholesterol, Calculated 88 mg/dL (0-100) VLDL Cholesterol, Calculated 13 mg/dL (0-40) Non-HDL Cholesterol Calculated 101 mg/dL (0-129) HDL Cholesterol 57 mg/dL (40-60) Cholesterol/HDL Ratio 2.8 Thyroid Stimulating Hormone (TSH) 1.799 uIU/mL (0.358-3.74) Glucose (Fingerstick) 310 mg/dL (70-99) 302 mg/dL (70-99) 152 mg/dL (70-99) Test 04/25/17 21:12 04/26/17 07:30 Glucose (Fingerstick) 208 mg/dL (70-99) 264 mg/dL (70-99) Laboratory Tests Test 04/25/17 11:21 04/25/17 16:52 04/25/17 21:12 04/26/17 07:30 Glucose (Fingerstick) 302 mg/dL (70-99) 152 mg/dL (70-99) 208 mg/dL (70-99) 264 mg/dL (70-99) Meds Current Medications Gentamicin Sulfate 1 each 1X ONCE [facility] ; Start 04/27/17 at 06:00; Stop 04/27/17 at 06:01 Assessment Assessment Problems Medical Problems: (1) Fever Status: Acute FINAL IMPRESSION: *high [id number] range *rt breast swelling *chronic cough * tachycardia hr 140 range 1. Bacteremia secondary to gram-negative positive blood c/s.Klebsiella 2. Febrile illness secondary to bacteremia. 3. End-stage renal disease, on hemodialysis Thursday, Thursday and Thursday. 4. Hypertension. PLAN: chronic SVC occlusion with collateral ct chest small effusion rt pleura echo -mod aortic stenosis no vegetations ekg/heart monitor for tachycardia noted blood c/s and sensitivity Patient agreed to stay till Thursday.Does not want to go to SNF,refusing [facility]HS. She is noncompliant,forgetful and will not do well at home.Readmission chances are high. Discharge with IV Gentamicin with Dialysis till 05/06 and po Cipro - antibiotics per ID. See in 5 days. Try to discharge with HHS.She is noncompliant with checking sugars at home. Add Raiza. Plan Plan For more details regarding further plans, please refer to the orders. Discharge Management - 35 minutes. CARLITOS SEVILLA MD Apr 26, 2017 10:36
[2017-04-26 11:00] VITALS: BP 150/66
[2017-04-26] MEDS: LINAGLIPTIN 5 MG TABLET PO SCH (11:52)
--- NOTE | 2017-04-26 12:12 | PDOC ---
SUBJECTIVE ROS ESRD Doing Ok x for Breast swelling CVS: no Orthopnea, no CP RESP: no SOB, no TINSLEY GI: no Nausea, no Vomiting : no Dysuria, no Urgency OBJECTIVE Vital Signs Vital Signs Date Time Temp Pulse Resp B/P (MAP) Pulse Ox O2 Delivery O2 Flow Rate FiO2 04/26/17 11:00 97.5 86 19 150/66 (94) 94 Room Air 97.5 PHYSICAL EXAM Physical Exam GEN: Awake, Oriented x 3, In no distress EYES: Vision Unchanged, Conjunctiva Normal EN: No EN Drainage, Mucous Membranes moist NECK: + JVD, + JVP, Supple, no Thyromegaly CVS: S1S2, + Murmur, No Gallop, No Rub,no Edema RESP: no Rales, no Rhonchi,no Acc. Muscle Use GI: BS + ve, NO Bruit, Non Tender, Non Distended : no CVA tenderness, no Suprapubic Tenderness DIAGNOSIS/ASSESSMENT Assessment & Plan ESRD: Current fluid and E-lyte status does not necessitate emergent need for dialysis. Will re-evaluate for dialysis in the am and continue on MWF schedule. ANEMIA; Aranap as ordered, Transfuse with next HD as needed HTN: Current BP meds as reviewed. See orders for changes. 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 - will try to ^ Uf on Hd and see if it helps BONE & MINERAL: follow phos and alter binder regimen Discussed Plan of Care with pt at bedside COMMENT/RELEVANT DATA Meds Current Medications Medications (Trade) Dose Ordered Sig/Noris Start Time Stop Time Status Last Admin Dose Admin Acetaminophen (Tylenol) 650 mg PRN Q8HRS PRN 04/17/17 18:30 04/19/17 16:04 650 MG Acetaminophen/ Hydrocodone Bitart (Lortab 5/325) 1 tab PRN Q6HRS PRN 04/17/17 18:30 04/25/17 04:49 1 TAB Albuterol Sulfate (Ventolin Neb Soln) 2.5 mg PRN Q2HRS PRN 04/20/17 23:30 04/26/17 02:39 2.5 MG Albuterol/ Ipratropium (Duoneb) 3 ml RTQID 04/21/17 08:00 04/26/17 07:17 3 ML Amlodipine Besylate (Norvasc) 10 mg DAILY 04/18/17 09:00 04/26/17 09:06 10 MG Aspirin (Ecotrin) 81 mg DAILYWBKFT 04/23/17 11:00 04/26/17 08:59 81 MG Benzonatate (Tessalon Perle) 100 mg [id number] 04/23/17 14:00 04/26/17 08:59 100 MG Budesonide (Pulmicort) 0.5 mg RTBID 04/22/17 20:00 04/26/17 07:17 0.5 MG Calcium Acetate (Phoslo) 1,334 mg TIDWMEALS 04/18/17 08:00 04/26/17 11:52 1,334 MG Cefepime HCl 1 gm/ Sodium Chloride 50 ml @ 100 mls/hr DAILY 04/18/17 08:30 04/26/17 09:01 100 MLS/HR Cinacalcet (Sensipar) 30 mg DAILY 04/18/17 09:00 04/26/17 09:00 30 MG Darbepoetin Ryan (Aranesp) 60 mcg WEEKLYHS 04/18/17 21:00 04/25/17 21:00 60 MCG Dextrose (Dextrose 50%-Water Syringe) 12.5 gm PRN Q15MIN PRN 04/24/17 10:00 Enoxaparin Sodium (Lovenox 40mg Syringe) 30 mg Q24H 04/18/17 11:45 UNV Fentanyl Citrate (Fentanyl 2ml Vial) 25 mcg PRN Q2HR PRN 04/17/17 16:30 04/18/17 16:29 DC Fluticasone Propionate (Flonase) 2 spray DAILY 04/22/17 11:00 04/26/17 09:00 2 SPRAY Gentamicin Sulfate 150 mg/ Sodium Chloride 103.75 ml @ 207.5 mls/hr 1X ONCE 04/17/17 19:30 04/17/17 19:59 DC 04/17/17 20:23 207.5 MLS/HR Gentamicin Sulfate 60 mg/ Sodium Chloride 101.5 ml @ 203 mls/hr QMWF 04/20/17 17:00 04/24/17 16:20 203 MLS/HR Gentamicin Sulfate 1 each 1X ONCE 04/27/17 06:00 04/27/17 06:01 Guaifenesin (Robitussin Dm) 5 ml PRN QID PRN 04/20/17 23:30 Heparin Sodium (Porcine) (Heparin Sq) 5,000 unit BID 04/24/17 21:00 04/26/17 09:10 5,000 UNIT Info (PHARMACY MONITORING -- do not chart) 1 each PRN DAILY PRN 04/24/17 07:30 UNV Insulin Aspart (NovoLOG) 0-7 UNITS TIDWMEALS 04/24/17 12:00 04/26/17 11:59 6 UNITS Linagliptin (Tradjenta) 5 mg DAILY 04/26/17 11:00 04/26/17 11:52 5 MG Metoprolol Succinate (Toprol Xl) 100 mg 1X ONCE 04/23/17 12:15 04/23/17 12:18 DC Metoprolol Tartrate (Lopressor) 25 mg 1X ONCE 04/22/17 11:00 04/22/17 11:01 DC 04/22/17 15:32 25 MG Montelukast Sodium (Singulair) 10 mg QHS 04/22/17 21:00 04/25/17 20:53 10 MG Ondansetron HCl (Zofran) 4 mg PRN Q6HRS PRN 04/21/17 18:00 04/23/17 14:31 4 MG Pantoprazole Sodium (Protonix) 40 mg DAILYAC 04/21/17 11:30 04/26/17 08:59 40 MG Promethazine HCl/ Codeine (Phenergan With Codeine) 5 ml PRN Q6HRS PRN 04/23/17 10:00 Sodium Chloride 1,000 ml @ 1,000 mls/hr Q1H PRN 04/24/17 07:19 04/24/17 18:00 DC Throat Lozenges (Cepacol Sore Throat Lozenge) 1 shawn PRN Q2HRS PRN 04/23/17 10:00 04/24/17 13:19 1 SHAWN Vancomycin HCl (Vanco Per Pharmacy) 1 each PRN DAILY PRN 04/17/17 18:30 UNV Vancomycin HCl 1.5 gm/Sodium Chloride 500 ml @ 250 mls/hr 1X ONCE 04/17/17 15:00 04/17/17 16:59 DC 04/17/17 15:18 250 MLS/HR Vancomycin HCl 500 mg/Sodium Chloride 100 ml @ 100 mls/hr QMWF 04/20/17 16:00 04/20/17 16:00 DC Vitamin B Complex/ Vitamin C (Mady-Albino) 1 tab DAILY 04/18/17 09:00 04/26/17 08:59 1 TAB Lab Laboratory Tests Test 04/25/17 16:52 04/25/17 21:12 04/26/17 07:30 04/26/17 11:51 Glucose (Fingerstick) 152 mg/dL (70-99) 208 mg/dL (70-99) 264 mg/dL (70-99) 288 mg/dL (70-99) MARY RIOS MD Apr 26, 2017 12:12
[2017-04-26 15:00] VITALS: BP 134/56
[2017-04-26 19:30] VITALS: BP 133/67
[2017-04-26] MEDS: MONTELUKAST SODIUM 10 MG TABLET. PO SCH (21:42)
[2017-04-26 23:30] VITALS: BP 136/62
[2017-04-27 03:30] VITALS: BP 116/79
[2017-04-27 05:29] LABS: BASO # 0.1 x10^3/uL (0.0-0.2); BASO % 1 % (0-3); EOS % 9 % (0-3); HEMATOCRIT 37.6 % (36.0-47.0); HEMOGLOBIN 11.9 g/dL (12.0-15.5); LYMPH # 1.1 x10^3/uL (1.0-4.8); LYMPH % 17 % (24-48); MEAN CORPUSCULAR HEMOGLOBIN 29 pg (25-35); MEAN CORPUSCULAR HGB CONC 32 g/dL (31-37); MEAN CORPUSCULAR VOLUME 92 fL (79-100); MONO % 10 % (0-9); NEUT % 63 % (31-73); PLATELET COUNT 286 x10^3/uL (140-400); RED CELL DISTRIBUTION WIDTH 14.4 % (11.5-14.5); WHITE BLOOD COUNT 6.8 x10^3/uL (4.0-11.0)
[2017-04-27] MEDS ORDERED: GENTAMICIN RANDOM LEVEL. MC ONE (06:00)
[2017-04-27 06:02] LABS: CALCIUM 11.4 mg/dL (8.5-10.1); CREATININE 8.4 mg/dL (0.6-1.0); GFR 5.7; POTASSIUM 4.5 mmol/L (3.5-5.1)
[2017-04-27 07:50] VITALS: BP 160/85
[2017-04-27] MEDS: INSULIN ASPART 300 UNITS/3 ML INSULN.PEN SQ SCH ×4 (08:00→17:00)
--- NOTE | 2017-04-27 08:33 | PDOC ---
Infectious Disease Note Subjective Subjective Hoping to go home soon Right breast feeling little less swollen says Denies pain ROS ROS GEN: Denies fevers, chills, sweats HEENT: Denies blurred vision, sore throat CV: Denies chest pain RESP: Denies shortness of air, cough GI: Denies n/v/d NEURO: Denies confusion, dizziness MSK: Denies weakness, joint pain/swelling Vital Sign Vital Signs Vital Signs Date Time Temp Pulse Resp B/P (MAP) Pulse Ox O2 Delivery O2 Flow Rate FiO2 04/27/17 07:50 97.6 92 20 160/85 (110) 97 Room Air 97.6 Physical Exam PHYSICAL EXAM GENERAL: NAD, Alert HEENT: PERRL, OC/OP NECK: Supple, no JVD, no LN LUNGS: Clear HEART: S1S2, no gallop, no murmur ABD: Soft, NT, no organomegaly, no rebound EXT: No edema, no cyanosis DISPLAY ARTIST: Alert, oriented x 3, no focal neurologic deficit SKIN: No rash IV: ok Labs Lab Laboratory Tests Test 04/26/17 11:51 04/26/17 16:59 04/26/17 20:58 04/27/17 05:00 Glucose (Fingerstick) 288 mg/dL (70-99) 199 mg/dL (70-99) 232 mg/dL (70-99) White Blood Count 6.8 x10^3/uL (4.0-11.0) Red Blood Count 4.10 x10^6/uL (3.50-5.40) Hemoglobin 11.9 g/dL (12.0-15.5) Hematocrit 37.6 % (36.0-47.0) Mean Corpuscular Volume 92 fL (79-100) Mean Corpuscular Hemoglobin 29 pg (25-35) Mean Corpuscular Hemoglobin Concent 32 g/dL (31-37) Red Cell Distribution Width 14.4 % (11.5-14.5) Platelet Count 286 x10^3/uL (140-400) Neutrophils (%) (Auto) 63 % (31-73) Lymphocytes (%) (Auto) 17 % (24-48) Monocytes (%) (Auto) 10 % (0-9) Eosinophils (%) (Auto) 9 % (0-3) Basophils (%) (Auto) 1 % (0-3) Neutrophils # (Auto) 4.2 x10^3uL (1.8-7.7) Lymphocytes # (Auto) 1.1 x10^3/uL (1.0-4.8) Monocytes # (Auto) 0.7 x10^3/uL (0.0-1.1) Eosinophils # (Auto) 0.6 x10^3/uL (0.0-0.7) Basophils # (Auto) 0.1 x10^3/uL (0.0-0.2) Sodium Level 141 mmol/L (136-145) Potassium Level 4.5 mmol/L (3.5-5.1) Chloride Level 101 mmol/L (98-107) Carbon Dioxide Level 32 mmol/L (21-32) Anion Gap 8 (6-14) Blood Urea Nitrogen 41 mg/dL (7-20) Creatinine 8.4 mg/dL (0.6-1.0) Estimated GFR (Cockcroft-Gault) 5.7 Glucose Level 191 mg/dL (70-99) Calcium Level 11.4 mg/dL (8.5-10.1) Random Gentamicin Level 3.2 mcg/mL Objective Assessment Fever - resolved Hyperglycemia Right breast swelling and pain. Mammogram in December reportedly normal. Edema w/o discrete mass on US Klebsiella sepsis - POA 04/17. No pain etc associated with AV graft. repeat cults 04/20 neg. ECHO TTE no gross veg Tachyarrhythmias Leukocytosis - resolved Ongoing cough ? reflux CKD on HD mild CHF Plan Plan of Care change to po derik venegas/MARYLOU Mae MD Apr 27, 2017 08:33
[2017-04-27] MEDS: BUDESONIDE 0.5 MG/2 ML NEBU. NEB SCH ×2 (09:10→20:21)
[2017-04-27] MEDS: IPRATRPIUM/ALBUTEROL 0.5/2.5MG 3 ML NEBU. NEB SCH ×4 (09:10→20:21)
[2017-04-27] MEDS: CALCIUM ACETATE 667 MG CAPSULE PO SCH ×3 (09:26→17:00)
[2017-04-27] MEDS: FOLIC/VIT B COMP W-C (RENAL) TABLET. PO SCH (09:26)
[2017-04-27] MEDS: PANTOPRAZOLE 40 MG TABLET.DR. PO SCH (09:27)
[2017-04-27] MEDS: BENZONATATE 100 MG CAPSULE. PO SCH ×3 (09:27→20:13)
[2017-04-27] MEDS: CINACALCET HCL 30 MG TABLET PO SCH (09:27)
[2017-04-27] MEDS: amLODIPine BESYLATE 10 MG TABLET PO SCH (09:27)
[2017-04-27] MEDS: ASPIRIN ENTERIC COATED 81 MG TABLET.DR. PO SCH (09:28)
[2017-04-27] MEDS: FLUTICASONE 50MCG/NASAL SPRAY 16GM BOTTLE. NS SCH (09:28)
[2017-04-27] MEDS: METOPROLOL SUCC 24HR ER 100 MG TAB.ER.24H. PO SCH (09:28)
[2017-04-27] MEDS: LINAGLIPTIN 5 MG TABLET PO SCH (09:35)
[2017-04-27] MEDS: HEPARIN PF for SUB-Q USE 5,000 UNIT/0.5 ML VIAL. SQ SCH ×2 (09:38→20:16)
--- NOTE | 2017-04-27 10:29 | PDOC ---
PROGRESS NOTES Subjective Subjective pt adamant on not going to SNU or rehab place,do not want home health Objective Objective Vital Signs Date Time Temp Pulse Resp B/P (MAP) Pulse Ox O2 Delivery O2 Flow Rate FiO2 04/27/17 09:28 92 160/85 04/27/17 09:10 93 Room Air 04/27/17 07:50 97.6 20 97.6 Intake and Output 04/28/17 07:00 Intake Total 360 ml Balance 360 ml Intake Oral 360 ml Physical Exam Abdomen: Soft, No tenderness Heart: Regular rate (SR with PACs), Normal S1, Normal S2, Other (S4, 3/6 systolic murmur to apical and CHANCE border) Extremities: No clubbing, No cyanosis General: Alert, Oriented X3, Cooperative HEENT: Atraumatic, EOMI Lungs: Normal air movement, Other (bilateral breast without obvious masses or skin changes) MUSCULOSKELETAL: No joint tenderness, Osteoarthritic changes both hands Neuro: Normal speech, Sensation intact Psych/Mental Status: Mental status NL, Mood NL Skin: No rashes, No breakdown COMMENT rt breast enlarged and edematous ,nipple inverted rt Diagnosis Problem List Problems Medical Problems: (1) Fever Status: Acute Assessment Assessment Problems Medical Problems: (1) Fever Status: Acute FINAL IMPRESSION: *high [id number] range improving tp 200 range *rt breast swelling edema due to anasarca *chronic cough improving * tachycardia hr 140 range controlled 1. Bacteremia secondary to gram-negative positive blood c/s.Klebsiella 2. Febrile illness secondary to bacteremia. 3. End-stage renal disease, on hemodialysis Thursday, Thursday and Thursday. 4. Hypertension. PLAN:Dialysis today. home tomorrow. refusing to go to snu or Rehab refusing to take insulin ,does not believe that she has diabetes. refusing home health. spoke with social work/ case specialist. 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 Labs Laboratory Tests Test 04/26/17 11:51 04/26/17 16:59 04/26/17 20:58 04/27/17 05:00 Glucose (Fingerstick) 288 mg/dL (70-99) 199 mg/dL (70-99) 232 mg/dL (70-99) White Blood Count 6.8 x10^3/uL (4.0-11.0) Red Blood Count 4.10 x10^6/uL (3.50-5.40) Hemoglobin 11.9 g/dL (12.0-15.5) Hematocrit 37.6 % (36.0-47.0) Mean Corpuscular Volume 92 fL (79-100) Mean Corpuscular Hemoglobin 29 pg (25-35) Mean Corpuscular Hemoglobin Concent 32 g/dL (31-37) Red Cell Distribution Width 14.4 % (11.5-14.5) Platelet Count 286 x10^3/uL (140-400) Neutrophils (%) (Auto) 63 % (31-73) Lymphocytes (%) (Auto) 17 % (24-48) Monocytes (%) (Auto) 10 % (0-9) Eosinophils (%) (Auto) 9 % (0-3) Basophils (%) (Auto) 1 % (0-3) Neutrophils # (Auto) 4.2 x10^3uL (1.8-7.7) Lymphocytes # (Auto) 1.1 x10^3/uL (1.0-4.8) Monocytes # (Auto) 0.7 x10^3/uL (0.0-1.1) Eosinophils # (Auto) 0.6 x10^3/uL (0.0-0.7) Basophils # (Auto) 0.1 x10^3/uL (0.0-0.2) Sodium Level 141 mmol/L (136-145) Potassium Level 4.5 mmol/L (3.5-5.1) Chloride Level 101 mmol/L (98-107) Carbon Dioxide Level 32 mmol/L (21-32) Anion Gap 8 (6-14) Blood Urea Nitrogen 41 mg/dL (7-20) Creatinine 8.4 mg/dL (0.6-1.0) Estimated GFR (Cockcroft-Gault) 5.7 Glucose Level 191 mg/dL (70-99) Calcium Level 11.4 mg/dL (8.5-10.1) Random Gentamicin Level 3.2 mcg/mL Test 04/27/17 07:52 Glucose (Fingerstick) 234 mg/dL (70-99) Microbiology 04/20/17 Blood Culture - Final, Complete NO GROWTH AFTER 5 DAYS Medications Current Medications Ciprofloxacin (Cipro) 250 mg BID PO ; Start 04/27/17 at 09:00 Gentamicin Sulfate 1 each 1X ONCE MC ; Start 04/27/17 at 06:00; Stop 04/27/17 at 06:01; Status DC Linagliptin (Tradjenta) 5 mg DAILY PO Last administered on 04/27/17t 09:35; Start 04/26/17 at 11:00 Vitals/I & O Vital Sign - Last 24 Hours 04/26/17 04/26/17 04/26/17 04/26/17 11:00 12:32 15:00 16:44 Temp 97.5 98.6 97.5 98.6 Pulse 86 85 Resp 19 20 B/P (MAP) 150/66 (94) 134/56 (82) Pulse Ox 94 95 99 O2 Delivery Room Air Room Air Room Air Room Air 04/26/17 04/26/17 04/26/17 04/26/17 19:17 19:30 20:20 23:30 Temp 98.6 98.4 98.6 98.4 Pulse 93 93 Resp 17 19 B/P (MAP) 133/67 (89) 136/62 (86) Pulse Ox 97 99 96 O2 Delivery Room Air Room Air Room Air Room Air 04/27/17 04/27/17 04/27/17 04/27/17 03:30 07:50 09:10 09:27 Temp 98.4 97.6 98.4 97.6 Pulse 95 92 92 Resp 20 20 B/P (MAP) 116/79 (91) 160/85 (110) 160/85 Pulse Ox 96 97 93 O2 Delivery Room Air Room Air Room Air 04/27/17 09:28 Pulse 92 B/P (MAP) 160/85 Intake and Output 04/27/17 04/27/17 04/28/17 15:00 23:00 07:00 Intake Total 360 ml Balance 360 ml MARIA TERESA HUIZAR MD Apr 27, 2017 10:29
[2017-04-27 10:30] VITALS: BP 152/75
--- NOTE | 2017-04-27 11:21 | PDOC ---
Renal-Progress Notes Subjective Notes Notes NO NEW COMPLAINTS History of Present Illness Hx of present illness STABLE Vitals Vitals Vital Signs Date Time Temp Pulse Resp B/P (MAP) Pulse Ox O2 Delivery O2 Flow Rate FiO2 04/27/17 10:30 98.0 87 21 152/75 (100) 97 Room Air 98.0 Weight Weight [ ] I.O. Intake and Output Intake and Output 04/28/17 07:00 Intake Total 360 ml Balance 360 ml Intake Oral 360 ml Labs Labs Laboratory Tests Test 04/26/17 11:51 04/26/17 16:59 04/26/17 20:58 04/27/17 05:00 Glucose (Fingerstick) 288 mg/dL (70-99) 199 mg/dL (70-99) 232 mg/dL (70-99) White Blood Count 6.8 x10^3/uL (4.0-11.0) Red Blood Count 4.10 x10^6/uL (3.50-5.40) Hemoglobin 11.9 g/dL (12.0-15.5) Hematocrit 37.6 % (36.0-47.0) Mean Corpuscular Volume 92 fL (79-100) Mean Corpuscular Hemoglobin 29 pg (25-35) Mean Corpuscular Hemoglobin Concent 32 g/dL (31-37) Red Cell Distribution Width 14.4 % (11.5-14.5) Platelet Count 286 x10^3/uL (140-400) Neutrophils (%) (Auto) 63 % (31-73) Lymphocytes (%) (Auto) 17 % (24-48) Monocytes (%) (Auto) 10 % (0-9) Eosinophils (%) (Auto) 9 % (0-3) Basophils (%) (Auto) 1 % (0-3) Neutrophils # (Auto) 4.2 x10^3uL (1.8-7.7) Lymphocytes # (Auto) 1.1 x10^3/uL (1.0-4.8) Monocytes # (Auto) 0.7 x10^3/uL (0.0-1.1) Eosinophils # (Auto) 0.6 x10^3/uL (0.0-0.7) Basophils # (Auto) 0.1 x10^3/uL (0.0-0.2) Sodium Level 141 mmol/L (136-145) Potassium Level 4.5 mmol/L (3.5-5.1) Chloride Level 101 mmol/L (98-107) Carbon Dioxide Level 32 mmol/L (21-32) Anion Gap 8 (6-14) Blood Urea Nitrogen 41 mg/dL (7-20) Creatinine 8.4 mg/dL (0.6-1.0) Estimated GFR (Cockcroft-Gault) 5.7 Glucose Level 191 mg/dL (70-99) Calcium Level 11.4 mg/dL (8.5-10.1) Random Gentamicin Level 3.2 mcg/mL Test 04/27/17 07:52 Glucose (Fingerstick) 234 mg/dL (70-99) Micro Micro Microbiology 04/20/17 Blood Culture - Final, Complete NO GROWTH AFTER 5 DAYS Review of Systems Constitutional: yes: chills, weakness, alert, oriented Ears/Nose/Throat: Yes: no symptom reported Eyes: Yes: no symptom reported Pulmonary: Yes no symptom reported Cardiovascular: Yes no symptom reported Gastrointestional: Yes: no symptom reported Genitourinary: Yes: no symptom reported Musculoskeletal: Yes: no symptom reported Skin: Yes no symptom reported Psychiatric/Neurological: Yes: no symptom reported Endocrine: Yes: no symptom reported Physical Exam General Appearance: no apparent distress Skin: warm Respiratory: bilateral CTA Heart: S1S2 Abdomen: soft, bowel sounds present Genitourinary: bladder flat Extremities: pulses present Neurology: alert, oriented, follow commands Musculoskeletal: Osteoarthritis Assessment Assessment IMP ESRD WITH RIGHT THIGH GRAFT-PATENT ANEMIA G NEG BACTEREMIA HTN NEW DX OF DM RIGHT CHEST WALL/BREAST EDEMA-MOST LIKELY DEPENDENT AND DUE TO CENTRAL VENOUS OCCLUSION PLAN ANTIBIOTICS HD TODAY UF TO UMAIR GLOVER MD Apr 27, 2017 11:21
[2017-04-27] MEDS: CIPROFLOXACIN HCL 250 MG TABLET. PO SCH ×2 (13:22→20:13)
[2017-04-27] MEDS ORDERED: IV NORMAL SALINE 1000ML BAG 1,000 ML IV PRN (14:02)
[2017-04-27] MEDS ORDERED: LABETALOL 20 MG/4 ML DISP.SYRIN. IVP PRN (14:15)
[2017-04-27] MEDS ORDERED: ACETAMINOPHEN 500 MG TABLET PO PRN (14:15)
[2017-04-27] MEDS ORDERED: diphenhydrAMINE 50 MG/ML VIAL IV PRN ×2 (14:15)
[2017-04-27] MEDS ORDERED: ALBUMIN HUMAN 25% 200 ML IV PRN (14:15)
[2017-04-27] MEDS ORDERED: cloNIDine HCL 0.1 MG TABLET PO PRN (14:15)
[2017-04-27] MEDS ORDERED: DIALYSIS PATIENT. MC PRN (14:15)
[2017-04-27 14:35] VITALS: BP 148/82
[2017-04-27 19:48] VITALS: BP 146/82
[2017-04-27] MEDS: MONTELUKAST SODIUM 10 MG TABLET. PO SCH (20:13)
[2017-04-27 22:47] VITALS: BP 145/69
[2017-04-28 02:18] VITALS: BP 138/80
[2017-04-28] MEDS: PANTOPRAZOLE 40 MG TABLET.DR. PO SCH (06:07)
[2017-04-28] MEDS: IPRATRPIUM/ALBUTEROL 0.5/2.5MG 3 ML NEBU. NEB SCH ×2 (07:25→11:24)
[2017-04-28] MEDS: BUDESONIDE 0.5 MG/2 ML NEBU. NEB SCH (07:25)
[2017-04-28 07:31] VITALS: BP 156/82
[2017-04-28] MEDS: FOLIC/VIT B COMP W-C (RENAL) TABLET. PO SCH (08:50)
[2017-04-28] MEDS: BENZONATATE 100 MG CAPSULE. PO SCH (08:50)
[2017-04-28] MEDS: CALCIUM ACETATE 667 MG CAPSULE PO SCH ×2 (08:50→12:00)
[2017-04-28] MEDS: LINAGLIPTIN 5 MG TABLET PO SCH (08:50)
[2017-04-28] MEDS: ASPIRIN ENTERIC COATED 81 MG TABLET.DR. PO SCH (08:51)
[2017-04-28] MEDS: CINACALCET HCL 30 MG TABLET PO SCH ×2 (08:51→09:00)
[2017-04-28] MEDS: amLODIPine BESYLATE 10 MG TABLET PO SCH (08:52)
[2017-04-28] MEDS: CIPROFLOXACIN HCL 250 MG TABLET. PO SCH (08:52)
[2017-04-28] MEDS: METOPROLOL SUCC 24HR ER 100 MG TAB.ER.24H. PO SCH (08:53)
[2017-04-28] MEDS: FLUTICASONE 50MCG/NASAL SPRAY 16GM BOTTLE. NS SCH (08:53)
[2017-04-28] MEDS: INSULIN ASPART 300 UNITS/3 ML INSULN.PEN SQ SCH ×2 (09:12→13:04)
[2017-04-28] MEDS: HEPARIN PF for SUB-Q USE 5,000 UNIT/0.5 ML VIAL. SQ SCH (09:13)
--- NOTE | 2017-04-28 09:35 | PDOC ---
Infectious Disease Note Subjective Subjective Hoping to go home soon Right breast feeling little less swollen says Denies pain ROS ROS GEN: Denies fevers, chills, sweats HEENT: Denies blurred vision, sore throat CV: Denies chest pain RESP: Denies shortness of air, cough GI: Denies n/v/d NEURO: Denies confusion, dizziness MSK: Denies weakness, joint pain/swelling Vital Sign Vital Signs Vital Signs Date Time Temp Pulse Resp B/P (MAP) Pulse Ox O2 Delivery O2 Flow Rate FiO2 04/28/17 08:53 103 156/82 04/28/17 07:35 Room Air 04/28/17 07:31 98.6 20 98 98.6 Physical Exam PHYSICAL EXAM GENERAL: NAD, Alert HEENT: PERRL, OC/OP NECK: Supple, no JVD, no LN LUNGS: Clear HEART: S1S2, no gallop, no murmur ABD: Soft, NT, no organomegaly, no rebound EXT: No edema, no cyanosis FILTER TANK TENDER: Alert, oriented x 3, no focal neurologic deficit SKIN: No rash IV: ok Labs Lab Laboratory Tests Test 04/27/17 11:20 04/27/17 21:12 04/28/17 07:34 Glucose (Fingerstick) 315 mg/dL (70-99) 236 mg/dL (70-99) 206 mg/dL (70-99) Objective Assessment Fever - resolved Hyperglycemia Right breast swelling and pain. Mammogram in December reportedly normal. Edema w/o discrete mass on US Klebsiella sepsis - POA 04/17. No pain etc associated with AV graft. repeat cults 04/20 neg. ECHO TTE no gross veg Tachyarrhythmias Leukocytosis - resolved Ongoing cough ? reflux CKD on HD mild CHF Plan Plan of Care po cipro 5 days d/c MARYLOU Ren MD Apr 28, 2017 09:35
--- NOTE | 2017-04-28 09:46 | PDOC ---
PROGRESS NOTES Subjective Subjective pt want to go home, spoke with pts niece Objective Objective Vital Signs Date Time Temp Pulse Resp B/P (MAP) Pulse Ox O2 Delivery O2 Flow Rate FiO2 04/28/17 09:39 Room Air 04/28/17 08:53 103 156/82 04/28/17 07:31 98.6 20 98 98.6 Physical Exam Abdomen: Soft, No tenderness Heart: Regular rate (SR with PACs), Normal S1, Normal S2, Other (S4, 3/6 systolic murmur to apical and CHANCE border) Extremities: No clubbing, No cyanosis General: Alert, Oriented X3, Cooperative HEENT: Atraumatic, EOMI Lungs: Normal air movement, Other (bilateral breast without obvious masses or skin changes) MUSCULOSKELETAL: No joint tenderness, Osteoarthritic changes both hands Neuro: Normal speech, Sensation intact Psych/Mental Status: Mental status NL, Mood NL Skin: No rashes, No breakdown COMMENT rt breast enlarged and edematous ,nipple inverted rt Diagnosis Problem List Problems Medical Problems: (1) Fever Status: Acute Assessment Assessment Problems Medical Problems: (1) Fever Status: Acute FINAL IMPRESSION: *high [id number] range improving tp 200 range *rt breast swelling edema due to anasarca *chronic cough improving * tachycardia hr 140 range controlled 1. Bacteremia secondary to gram-negative positive blood c/s.Klebsiella 2. Febrile illness secondary to bacteremia. 3. End-stage renal disease, on hemodialysis Thursday, Thursday and Thursday. 4. Hypertension. PLAN: home today.home care consultant. dialysis yesterday and tomorrow next one po cipro 500 mg q fowler x5 days refusing to go to snu or Rehab refusing to take insulin ,does not believe that she has diabetes. refusing home health. spoke with social work/ pillowcase maker. 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 Labs Laboratory Tests Test 04/27/17 11:20 04/27/17 21:12 04/28/17 07:34 Glucose (Fingerstick) 315 mg/dL (70-99) 236 mg/dL (70-99) 206 mg/dL (70-99) Microbiology 04/20/17 Blood Culture - Final, Complete NO GROWTH AFTER 5 DAYS Medications Current Medications Acetaminophen (Tylenol) 500 mg 1X PRN PRN PO MILD PAIN / TEMP; Start 04/27/17 at 14:15; Stop 04/28/17 at 14:14 Albumin Human 200 ml @ 200 mls/hr 1X PRN PRN IV Hypotension; Start 04/27/17 at 14:15; Stop 04/27/17 at 20:14; Status DC Clonidine HCl (Catapres) 0.1 mg 1X PRN PRN PO SBP > 180; Start 04/27/17 at 14: 15; Stop 04/28/17 at 14:14 Diphenhydramine HCl (Benadryl) 25 mg 1X PRN PRN IV ITCHING; Start 04/27/17 at 14:15; Stop 04/28/17 at 14:14 Diphenhydramine HCl (Benadryl) 25 mg 1X PRN PRN IV ITCHING; Start 04/27/17 at 14:15; Stop 04/28/17 at 14:14 Info (PHARMACY MONITORING -- do not chart) 1 each PRN DAILY PRN MC SEE COMMENTS ; Start 04/27/17 at 14:15; Stop 04/28/17 at 07:20; Status DC Labetalol HCl (Normodyne) 10 mg PRN Q1HR PRN IVP SBP > 180; Start 04/27/17 at 14:15; Stop 04/28/17 at 14:14 Sodium Chloride 1,000 ml @ 1,000 mls/hr Q1H PRN IV hypotension; Start 04/27/17 at 14:02; Stop 04/27/17 at 20:01; Status DC Vitals/I & O Vital Sign - Last 24 Hours 04/27/17 04/27/17 04/27/17 04/27/17 10:30 11:59 14:35 16:51 Temp 98.0 98.0 98.0 98.0 Pulse 87 79 Resp 21 20 B/P (MAP) 152/75 (100) 148/82 (104) Pulse Ox 97 96 98 O2 Delivery Room Air Room Air Room Air Room Air 04/27/17 04/27/17 04/27/17 04/27/17 19:48 20:00 20:22 22:47 Temp 98.1 98.0 98.1 98.0 Pulse 95 95 Resp 20 18 B/P (MAP) 146/82 (103) 145/69 (94) Pulse Ox 97 95 96 O2 Delivery Room Air Room Air Room Air Room Air 04/28/17 04/28/17 04/28/17 04/28/17 02:18 07:26 07:31 07:35 Temp 98.3 98.6 98.3 98.6 Pulse 79 96 Resp 18 20 B/P (MAP) 138/80 (99) 156/82 (106) Pulse Ox 97 98 O2 Delivery Room Air Room Air Room Air Room Air 04/28/17 04/28/17 04/28/17 08:52 08:53 09:39 Pulse 105 103 B/P (MAP) 156/82 156/82 O2 Delivery Room Air MARIA TERESA HUIZAR MD Apr 28, 2017 09:46
[2017-04-28] MEDS ORDERED: ASPI-612 PO (09:55)
[2017-04-28] MEDS ORDERED: LINA5TAB4 PO (09:55)
[2017-04-28] MEDS ORDERED: METO-247 PO (09:55)
[2017-04-28] MEDS ORDERED: CIPR500T94 PO (09:55)
--- NOTE | 2017-04-28 10:07 | PDOC ---
Provider Note Provider Note discharge summary dictated. #[id number] MARIA TERESA HUIZAR MD Apr 28, 2017 10:07
[2017-04-28 10:19] VITALS: BP 141/68
--- NOTE | 2017-04-28 10:50 | DS ---
DATE OF DISCHARGE: 04/28/2017 LOCATION: 207. REASON FOR ADMISSION TO THE HOSPITAL: Fever, sepsis. CONSULTATIONS: 1. Dr. Lr, dialysis. 2. Dr. Barnhart, Infectious Disease. 3. Dr. Arias and Dr. Cardozo, Cardiology. PROCEDURES DONE: 1. Echocardiogram. 2. Dialysis. 3. CT chest, CT of the neck and ultrasound of the right breast. HOSPITAL COURSE: The patient is a 67-year-old female with end-stage dialysis for 25 years, almost. She had access in the chest. She had AV shunt in the left arm, not working. Finally, she has one in the right groin. She goes to dialysis 3 times a week, came with fever 102. She was found to have bacteremia. Blood cultures positive for Klebsiella. The patient was seen by Renal. She was dialyzed 3 times a week. She was also seen by Infectious Disease, Dr. Barnhart, initially put on vancomycin and Zosyn and the patient was continued on gentamicin and Cipro. The patient was having right-sided breast swelling, had a sonogram, shows anasarca, soft tissue swelling, no masses. 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 The patient is refusing to go to assisted facility [facility] and she wants to go home. The patient's blood sugar was 400 in the hospital. A1c was 8 and she is refusing to take insulin. The patient was put on Tradjenta. The patient is refusing home health, refusing to go to custodial and wants to go home. The patient was discharged. The patient has a niece who is home caregiver and she goes to dialysis 3 times a week. She uses a walker and wheelchair at home. The patient had discussions, multiple with the social studies department chair, immigration case manager, myself and all the time, she is refusing to go to the facilities and wants to go home and the patient was discharged home and she is recommended to finish 5 more days of Cipro for bacteremia once a day after dialysis. The patient had tachycardia in the hospital. Echocardiogram shows ejection fraction 50%, mild global hypokinesia, aortic valve stenosis, mild to moderate aortic stenosis, no vegetations present. The patient was discharged on increased dose of metoprolol succinate 200 mg, Tradjenta and Cipro for 5 days. FINAL DIAGNOSES: 1. Klebsiella bacteremia, probably related to arteriovenous grafts. 2. End-stage renal disease, on hemodialysis. 3. Diabetes. The patient refusing insulin, started on oral pills. 4. Tachycardia syndrome, increased metoprolol 200 mg. 5. Hypertension. 6. Hyperlipidemia. 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 8. Right breast swelling secondary to anasarca and positioning . The patient is discharged. The patient's chance of readmission to the hospital is high; however, she was explained all the benefits and risks .She is adamant and resisting on SNU, wanting to go home. MARIA TERESA HUIZAR MD DR: LUCRECIA/elijah JOB#: [id number] / [id number] JUDITH Ivory
--- NOTE | 2017-04-28 12:05 | PDOC ---
Renal-Progress Notes Subjective Notes Notes BETTER History of Present Illness Hx of present illness STABLE Vitals Vitals Vital Signs Date Time Temp Pulse Resp B/P (MAP) Pulse Ox O2 Delivery O2 Flow Rate FiO2 04/28/17 11:24 Room Air 04/28/17 10:19 97.9 86 21 141/68 (92) 96 97.9 Weight Weight [ ] Labs Labs Laboratory Tests Test 04/27/17 21:12 04/28/17 07:34 04/28/17 11:36 Glucose (Fingerstick) 236 mg/dL (70-99) 206 mg/dL (70-99) 192 mg/dL (70-99) Micro Micro Microbiology 04/20/17 Blood Culture - Final, Complete NO GROWTH AFTER 5 DAYS Review of Systems Constitutional: yes: chills, weakness, alert, oriented Ears/Nose/Throat: Yes: no symptom reported Eyes: Yes: no symptom reported Pulmonary: Yes no symptom reported Cardiovascular: Yes no symptom reported Gastrointestional: Yes: no symptom reported Genitourinary: Yes: no symptom reported Musculoskeletal: Yes: no symptom reported Skin: Yes no symptom reported Psychiatric/Neurological: Yes: no symptom reported Endocrine: Yes: no symptom reported Physical Exam General Appearance: no apparent distress Skin: warm Respiratory: bilateral CTA Heart: S1S2 Abdomen: soft, bowel sounds present Genitourinary: bladder flat Extremities: pulses present Neurology: alert, oriented, follow commands Musculoskeletal: Osteoarthritis Assessment Assessment IMP ESRD WITH RIGHT THIGH GRAFT-PATENT ANEMIA G NEG BACTEREMIA HTN NEW DX OF DM RIGHT CHEST WALL/BREAST EDEMA-MOST LIKELY DEPENDENT AND DUE TO CENTRAL VENOUS OCCLUSION PLAN ANTIBIOTICS HD TOMORROW OP D/C TODAY D/W UMAIR COLINDRES MD Apr 28, 2017 12:05
== END 2017-04-28 13:45 | disposition home or self-care (01) | DRG 314 ==
LOC: ER 12:55 → 5 NORTH 14:40 → OBSVTOIN 04-18 11:32 → 2 NORTH 04-21 16:32
PROVIDERS: ADMIT Internal Medicine; ATTEND Internal Medicine
DX: T82.7XXA Infection and inflammatory reaction due to other cardiac and vascular devices, implants and grafts, initial encounter (principal); A41.59 Other Gram-negative sepsis; N18.6 End stage renal disease; I50.32 Chronic diastolic (congestive) heart failure; Y69 Unspecified misadventure during surgical and medical care; E11.22 Type 2 diabetes mellitus with diabetic chronic kidney disease; B96.1 Klebsiella pneumoniae [K. pneumoniae] as the cause of diseases classified elsewhere; D64.9 Anemia, unspecified; E11.65 Type 2 diabetes mellitus with hyperglycemia; E78.5 Hyperlipidemia, unspecified; I12.9 Hypertensive chronic kidney disease with stage 1 through stage 4 chronic kidney disease, or unspecified chronic kidney disease; I25.10 Atherosclerotic heart disease of native coronary artery without angina pectoris; Z82.49 Family history of ischemic heart disease and other diseases of the circulatory system; Z99.2 Dependence on renal dialysis; E21.3 Hyperparathyroidism, unspecified; F41.9 Anxiety disorder, unspecified; K59.00 Constipation, unspecified; M19.90 Unspecified osteoarthritis, unspecified site; Z88.8 Allergy status to other drugs, medicaments and biological substances; Z91.19 Patient's noncompliance with other medical treatment and regimen; Y92.89 Other specified places as the place of occurrence of the external cause
CPT/HCPCS: 36415; 70490; 71010; 71250; 76641; 80048; 80053; 80061; 80170; 80202; 82962; 83036; 83605; 84443; 85007; 85025; 85027; 87040; 87205; 87804; 93005; 93306; 94250; 94640; 94760; 96365; 96366; 96375; G0378; G0379; J0692; J0881; J1580; J1815; J2405; J3010; J3370; J7040; J7613; J7620; J7626; 97110; 99285-25

== ENCOUNTER 2018-08-09 10:22 | Emergency (ER) | payer MEDICARE, BC, MEDICAID ==
[~2018-08-09] VITALS: Ht 170.2 cm; Wt 85.7 kg
[~2018-08-09 10:22] MED LIST changes: -AMLO10TA2 PO; +AMLO10TA6 PO; +ASPI-612 PO; +CALC667T PO; +CIPR500T94 PO; +LINA5TAB PO; +METO-247 PO
[2018-08-09 10:55] LABS: BASO # 0.1 x10^3/uL (0.0-0.2); BASO % 1 % (0-3); EOS # 0.1 x10^3/uL (0.0-0.7); EOS % 1 % (0-3); HEMATOCRIT 26.3 % (36.0-47.0); HEMOGLOBIN 8.8 g/dL (12.0-15.5); LYMPH # 0.8 x10^3/uL (1.0-4.8); LYMPH % 7 % (24-48); MEAN CORPUSCULAR HEMOGLOBIN 31 pg (25-35); MEAN CORPUSCULAR HGB CONC 33 g/dL (31-37); MEAN CORPUSCULAR VOLUME 93 fL (79-100); MONO # 0.6 x10^3/uL (0.0-1.1); MONO % 5 % (0-9); NEUT # 9.9 x10^3uL (1.8-7.7); NEUT % 86 % (31-73); PLATELET COUNT 368 x10^3/uL (140-400); RED BLOOD COUNT 2.83 x10^6/uL (3.50-5.40); WHITE BLOOD COUNT 11.5 x10^3/uL (4.0-11.0)
[2018-08-09 11:07] LABS: CREATININE 6.4 mg/dL (0.6-1.0); GFR 7.8; POTASSIUM 5.1 mmol/L (3.5-5.1)
[2018-08-09 11:12] LABS: ALBUMIN 2.4 g/dL (3.4-5.0); ALBUMIN/GLOBULIN RATIO 0.5 (1.0-1.7); MAGNESIUM 2.6 mg/dL (1.8-2.4); TOTAL BILIRUBIN 0.4 mg/dL (0.2-1.0); TOTAL PROTEIN 7.1 g/dL (6.4-8.2)
[2018-08-09] MEDS ORDERED: fentaNYL PF VIAL 100 MCG/2 ML VIAL IV ONE (11:15)
[2018-08-09 11:40] LABS: % BANDS 1 % (0-9); % LYMPHS 5 % (24-48); % MONOS 3 % (0-10); % SEGS 91 % (35-66); ANISOCYTOSIS SLIGHT; PLT ESTIMATE ADEQUATE (ADEQUATE); POLYCHROMASIA PRESENT
--- NOTE | 2018-08-09 12:12 | PHYS DOC ---
Past Medical History Past Medical History: Hypertension, Renal Disease, Other Additional Past Medical Histor: HEMODIALYSIS Past Surgical History: Other Additional Past Surgical Histo: HD shunt - R leg Alcohol Use: None Drug Use: None Adult General Chief Complaint Chief Complaint: PAIN CONTROL HPI HPI Patient is a 68 year old female with history of end stage renal disease on hemodialysis brought in by EMS because of "hurting all over". Patient complaining of generalized pain since June 30 as a constant and severe pain and rated her pain 8/10. Patient was at dialysis center this morning and refused to have dialysis because of her pain. Patient denies chest pain, shortness of breath, nausea and vomiting. Patient had a dialysis 3 days ago. Review of Systems Review of Systems Constitutional: Denies fever or chills [] Eyes: Denies change in visual acuity, redness, or eye pain [] HENT: Denies nasal congestion or sore throat [] Respiratory: Denies cough or shortness of breath [] Cardiovascular: No additional information not addressed in HPI [] GI: Denies abdominal pain, nausea, vomiting, bloody stools or diarrhea [] : Denies dysuria or hematuria [] Musculoskeletal: Reports pain all over Integument: Denies rash or skin lesions [] Neurologic: Denies headache, focal weakness or sensory changes [] Endocrine: Denies polyuria or polydipsia [] All other systems were reviewed and found to be within normal limits, except as documented in this note. Current Medications Current Medications Current Medications Medications (Trade) Dose Ordered Sig/Noris Start Time Stop Time Status Last Admin Dose Admin Fentanyl Citrate (Fentanyl 2ml Vial) 50 mcg 1X ONCE 08/09/18 11:15 08/09/18 11:16 DC 08/09/18 11:33 50 MCG Allergies Allergies Allergies Coded Allergies Type Severity Reaction Last Updated Verified No Known Medication Allergies Allergy Unknown 04/22/17 Yes diphenhydramine Adverse Reaction Mild Anxiety 01/17/16 Yes Physical Exam Physical Exam Constitutional: Well nourished, no acute distress, non-toxic appearance. [] HENT: Normocephalic, atraumatic, oropharynx moist, no oral exudates, nose normal. [] Eyes: PERRLA, EOMI, conjunctiva normal, no discharge. [] Neck: Normal range of motion, no tenderness, supple, no stridor. [] Cardiovascular:Heart rate regular rhythm, systolic heart murmur [] Lungs & Thorax: Bilateral breath sounds clear to auscultation [] Abdomen: Bowel sounds normal, soft, no tenderness, no masses, no pulsatile masses. [] Skin: Warm, dry, no erythema, no rash. [] Back: No tenderness, no CVA tenderness. [] Extremities: No tenderness, no cyanosis, no clubbing, ROM intact, no edema. [] Neurologic: Alert and oriented X 3, normal motor function, normal sensory function, no focal deficits noted. [] Psychologic: Affect anxious, judgement normal, mood normal. [] Current Patient Data Vital Signs Vital Signs Date Time Temp Pulse Resp B/P (MAP) Pulse Ox O2 Delivery O2 Flow Rate FiO2 08/09/18 13:00 84 18 99 08/09/18 11:33 Room Air 08/09/18 10:25 98.6 116/62 (80) 98.6 Lab Values Laboratory Tests Test 08/09/18 10:42 White Blood Count 11.5 x10^3/uL (4.0-11.0) H Red Blood Count 2.83 x10^6/uL (3.50-5.40) L Hemoglobin 8.8 g/dL (12.0-15.5) L Hematocrit 26.3 % (36.0-47.0) L Mean Corpuscular Volume 93 fL (79-100) Mean Corpuscular Hemoglobin 31 pg (25-35) Mean Corpuscular Hemoglobin Concent 33 g/dL (31-37) Red Cell Distribution Width 16.0 % (11.5-14.5) H Platelet Count 368 x10^3/uL (140-400) Neutrophils (%) (Auto) 86 % (31-73) H Lymphocytes (%) (Auto) 7 % (24-48) L Monocytes (%) (Auto) 5 % (0-9) Eosinophils (%) (Auto) 1 % (0-3) Basophils (%) (Auto) 1 % (0-3) Neutrophils # (Auto) 9.9 x10^3uL (1.8-7.7) H Lymphocytes # (Auto) 0.8 x10^3/uL (1.0-4.8) L Monocytes # (Auto) 0.6 x10^3/uL (0.0-1.1) Eosinophils # (Auto) 0.1 x10^3/uL (0.0-0.7) Basophils # (Auto) 0.1 x10^3/uL (0.0-0.2) Segmented Neutrophils % 91 % (35-66) H Band Neutrophils % 1 % (0-9) Lymphocytes % 5 % (24-48) L Monocytes % 3 % (0-10) Platelet Estimate Adequate (ADEQUATE) Polychromasia Present Anisocytosis Slight Sodium Level 137 mmol/L (136-145) Potassium Level 5.1 mmol/L (3.5-5.1) Chloride Level 99 mmol/L (98-107) Carbon Dioxide Level 28 mmol/L (21-32) Anion Gap 10 (6-14) Blood Urea Nitrogen 39 mg/dL (7-20) H Creatinine 6.4 mg/dL (0.6-1.0) H Estimated GFR (Cockcroft-Gault) 7.8 BUN/Creatinine Ratio 6 (6-20) Glucose Level 174 mg/dL (70-99) H Calcium Level 10.0 mg/dL (8.5-10.1) Magnesium Level 2.6 mg/dL (1.8-2.4) H Total Bilirubin 0.4 mg/dL (0.2-1.0) Aspartate Amino Transferase (AST) 26 U/L (15-37) Alanine Aminotransferase (ALT) 7 U/L (14-59) L Alkaline Phosphatase 99 U/L (46-116) Total Protein 7.1 g/dL (6.4-8.2) Albumin 2.4 g/dL (3.4-5.0) L Albumin/Globulin Ratio 0.5 (1.0-1.7) L Laboratory Tests 08/09/18 10:42 Laboratory Tests 08/09/18 10:42 EKG EKG EKG interpreted by me. EKG at 1038 showed normal sinus rhythm at rate of 88, left atrial abnormality, abnormal left axis deviation, left anterior fascicular block, ST and T wave abnormality is anterior leads, LVH, no acute ST and T-wave abnormalities. Radiology/Procedures Radiology/Procedures [] Course & Med Decision Making Course & Med Decision Making Pertinent Labs reviewed. (See chart for details) Evaluation of patient in ER showed 68-year-old female patient brought in by EMS because of generalized pain for months. Patient had unremarkable physical exam and labs showed chronic renal failure test without significant hyperkalemia. Patient missed her dialysis today and arrangements for dialysis today at 3 PM was made and transportation was provided. Patient had 1 dose of fentanyl in ER and instructed to follow-up with her primary care physician for chronic pain. Dragon Disclaimer Dragon Disclaimer This electronic medical record was generated, in whole or in part, using a voice recognition dictation system. Departure Departure Impression: Primary Impression: Chronic pain Additional Impressions: Chronic kidney disease with end stage renal failure on dialysis Anemia Disposition: 01 HOME, SELF-CARE (at 1209) Condition: IMPROVED Referrals: JUDITH DOMINGUEZ (PCP) Patient Instructions: Chronic Pain, Chronic Pain Management Additional Instructions: Follow-up with your hemodialysis that was scheduled for today at 3 PM Follow-up with your primary care physician regarding chronic pain Problem Qualifiers SOPHIE DAVID MD Aug 09, 2018 12:12
[2018-08-09 13:00] VITALS: BP 110/54
--- NOTE | 2018-08-10 07:43 | EKG ---
[facility] [address] [place] [address] Test Date: 2018-08-09 Test Time: 10:38:40 Pat Name: JUD GARNER Department: Room: Gender: F Fit Model: : 1950 Requested By: SOPHIE DAVID Order Number: [id number] Reading MD: Measurements Intervals [place] Rate: 88 P: 61 CO: 158 QRS: -57 QRSD: 106 T: 101 QT: 368 QTc: 449 Interpretive Statements SINUS RHYTHM LEFT ATRIAL ABNORMALITY ABNORMAL LEFT AXIS DEVIATION LEFT ANTERIOR FASCICULAR BLOCK ST & T ABNORMALITY, CONSIDER ANTERIOR ISCHEMIA OR LEFT VENTRICULAR STRAIN ABNORMAL ECG RI6.01 No previous ECG available for comparison
== END 2018-08-09 13:27 | disposition home or self-care (01) ==
LOC: ER 10:22
DX: I12.0 Hypertensive chronic kidney disease with stage 5 chronic kidney disease or end stage renal disease (principal); N18.6 End stage renal disease; D64.9 Anemia, unspecified; Z99.2 Dependence on renal dialysis; Z88.8 Allergy status to other drugs, medicaments and biological substances
CPT/HCPCS: 36415; 80053; 83735; 85007; 85025; 93005; 96374; 99284; J3010